=== PATIENT | male | born 1950 | race African-American/Black ===

== ENCOUNTER 2016-10-22 10:21 | Emergency (ER) | payer OTHER ==
[2016-10-22 10:32] VITALS: BMI 26.3
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
[2016-10-22] MEDS ORDERED: KETOROLAC TROMETHAMINE 60 MG/2 ML VIAL IM ONE (13:13)
[2016-10-22] MEDS ORDERED: KETOROLAC TROMETHAMINE 60 MG/2 ML VIAL ONE (13:45)
[2016-10-22 14:46] VITALS: BP 144/90; PULSE 89; TEMP 98.1
== END 2016-10-22 14:46 | disposition home or self-care (01) ==
LOC: JER 10:21
PROC: 3E0233Z Introduction of Anti-inflammatory into Muscle, Percutaneous Approach (ICD-10-PCS; principal; 2016-10-22)
DX: S22.32XD Fracture of one rib, left side, subsequent encounter for fracture with routine healing (principal); V67 Occupant of heavy transport vehicle injured in collision with fixed or stationary object
CPT/HCPCS: 71020-TC; 71101-TC; 99284-25

== ENCOUNTER 2016-10-24 12:02 | Emergency (ER) | payer OTHER ==
[2016-10-24 12:08] VITALS: TEMP 98; BMI 25.7
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
[2016-10-24] MEDS ORDERED: ONDANSETRON *ODT* 4 MG TABLET SL ONE (12:50)
[2016-10-24] MEDS ORDERED: HYDROmorphone HCL CARPU-JECT 1 MG/1 ML DISP.SYRIN IM ONE (12:50)
[2016-10-24] MEDS ORDERED: HYDROmorphone HCL CARPU-JECT 2 MG/1 ML DISP.SYRIN ONE (12:58)
[2016-10-24] MEDS ORDERED: ONDANSETRON *ODT* 4 MG TABLET ONE (12:59)
[2016-10-24 16:53] VITALS: BP 139/68; PULSE 65
== END 2016-10-24 16:53 | disposition home or self-care (01) ==
LOC: JER 12:02
DX: S22.42XD Multiple fractures of ribs, left side, subsequent encounter for fracture with routine healing (principal); V67 Occupant of heavy transport vehicle injured in collision with fixed or stationary object
CPT/HCPCS: 71250-TC; 74176-TC; 99285-25

== ENCOUNTER 2018-06-20 16:58 | Emergency (ER) | payer OTHER ==
--- NOTE | 2018-06-20 17:28 | PDOC ---
Rapid Medical Evaluation Time Seen by Provider: 06/20/18 17:24 Medical Evaluation: Allergies Allergy/AdvReac Type Severity Reaction Status Date / Time No Known Allergies Allergy Verified 10/24/16 12:08 06/20/18 17:25 I have performed a brief in-person evaluation of this patient. The patient presents with a chief complaint of: sent in by Dr George for HR of 112 on routine visit today. Pt states he feels well w/ no palpitations, CP or SOB. No RF for DVT/PE. H/o HTN, HLD, DM Pertinent physical exam findings:Well stefan w/ HR of 109 I have ordered the following:ekg/labs The patient will proceed to the ED for further evaluation. Discharge Disposition - Diagnosis Tachycardia - Referrals Referrals: Avis Gray MD [Primary Care Provider] - - Patient Instructions - Post Discharge Activity
[2018-06-20 17:29] VITALS: BMI 26.3
[2018-06-20 18:00] LABS: BASO % 1.1 % (0-2.0); EOS % 2.4 % (0-4.5); HEMATOCRIT 43.7 % (35.4-49); HEMOGLOBIN 15.4 GM/dL (11.7-16.9); LYMPH % 28.4 % (8-40); MCH 33.3 pg (25.7-33.7); MCHC 35.2 g/dl (32.0-35.9); MEAN CELL VOLUME 94.7 fl (80-96); MEAN PLT VOLUME 8.8 fl (7.5-11.1); MONO % 7.2 % (3.8-10.2); NEUT % 60.9 % (42.8-82.8); PLATELET COUNT 210 K/MM3 (134-434); RBC 4.62 M/mm3 (4.00-5.60); RDW 12.8 % (11.9-15.9)
[2018-06-20 19:00] LABS: URINE APPEARANCE CLEAR; URINE BILIRUBIN NEGATIVE (<2.0 mg/dL); URINE COLOR DKYELLOW; URINE GLUCOSE (UA) 2+ (NEGATIVE); URINE KETONE NEGATIVE (NEGATIVE); URINE LEUK ESTERASE NEGATIVE (NEGATIVE); URINE NITRITE NEGATIVE (NEGATIVE); URINE PROTEIN NEGATIVE (NEGATIVE)
[2018-06-20 19:02] LABS: ALK PHOS 108 U/L (45-117); ANION GAP 7 MMOL/L (8-16); BILIRUBIN,TOTAL 0.5 mg/dL (0.2-1); BLOOD UREA NITROGEN 9 mg/dL (7-18); CALCIUM 9.3 mg/dL (8.5-10.1); CHLORIDE 103 mmol/L (98-107); CO2 30 mmol/L (21-32); CREATININE 0.9 mg/dL (0.55-1.3); GLUCOSE,RANDOM 228 mg/dL (74-106); POTASSIUM 4.4 mmol/L (3.5-5.1); SGOT/AST 16 U/L (15-37); SGPT/ALT 19 U/L (13-61); SODIUM 140 mmol/L (136-145); TOT PROT 7.2 g/dl (6.4-8.2)
--- NOTE | 2018-06-20 19:03 | PDOC ---
History of Present Illness - General Chief Complaint: Irregular Heart Beat Stated Complaint: PCP SENT Time Seen by Provider: 06/20/18 17:24 History Source: Patient Exam Limitations: No Limitations - History of Present Illness Initial Comments: 68 yo M w a pmh of NIDDM, HTN and HLD presents to the ER sent from his PCP - Dr. John George because he was tachycardic to 112. The patient denies any symptoms. He denies having chest pain, SOB, difficulty breathing, palpitations, lightheadedness, nausea, vomiting, recent fevers, chills, infections, headaches , blurry vision, tinnitus, vertigo, neck pain, back pain, ankle/leg swelling, diarrhea, constipation, recent travel, history of blood clots or family hx of VTE. Allergies: NKA, NKDA Past surgical history: None reported Social history: He reports cigarette use (20 daily). No alcohol or drug use reported PCP - Dr. John George Past History - Past Medical History Allergies/Adverse Reactions: Allergies Allergy/AdvReac Type Severity Reaction Status Date / Time No Known Allergies Allergy Verified 06/20/18 17:28 Home Medications: Ambulatory Orders Amlodipine Besylate 10 mg PO DAILY 11/24/15 Aspirin [Ecotrin] 81 mg PO DAILY 11/24/15 Gabapentin [Neurontin -] 300 mg PO DAILY 11/24/15 Lisinopril [Prinivil] 20 mg PO DAILY 11/24/15 Simvastatin [Zocor -] 20 mg PO DAILY 11/24/15 Sitagliptin Phos/Metformin HCl [Janumet 50-500 mg Tablet] 500 mg PO BIDAC Insulin Detemir [Levemir Flextouch] 0 unit SQ ASDIR 06/20/18 COPD: No Diabetes: Yes HTN: Yes Hypercholesterolemia: Yes - Immunization History Immunization Up to Date: Yes - Suicide/Smoking/Psychosocial Hx Smoking History: Never smoked Have you smoked in the past 12 months: No Number of Cigarettes Smoked Daily: 15 Information on smoking cessation initiated: No Hx Alcohol Use: No Drug/Substance Use Hx: No Substance Use Type: None Review of Systems - Review of Systems Able to Perform ROS?: Yes Comments:: CONSTITUTIONAL: Absent: fever, no chills, no fatigue EYES: Absent: visual changes ENT: Absent: ear pain, no sore throat CARDIOVASCULAR: Absent: chest pain, no palpitations RESPIRATORY: Absent: cough, no SOB GI: Absent: abdominal pain, no nausea, no vomiting, no constipation, no diarrhea GENITOURINARY: Absent: dysuria, no frequency, no hematuria MUSKULOSKELETAL: Absent: back pain, no arthralgia, no myalgia SKIN: Absent: rash NEURO: Absent: headache *Physical Exam - Vital Signs Last Vital Signs Temp Pulse Resp BP Pulse Ox 98.9 F 109 H 16 150/81 100 06/20/18 17:26 06/20/18 17:26 06/20/18 17:26 06/20/18 17:26 06/20/18 17:26 - Physical Exam Comments: GENERAL: Well-appearing, well-nourished. No apparent distress. HEENT: Normocephalic, atraumatic. PERRL, EOM intact. CARDIOVASCULAR: Normal S1, S2. Regular rate and rhythm. PULMONARY: No evidence of respiratory distress. Lungs clear to auscultation bilaterally. No wheezing, rales or rhonchi. ABDOMEN: Soft, non-distended, non-tender. EXTREMITIES: Normal ROM in all four extremities. No gross deformities. SKIN: Warm, dry. No rash NEUROLOGICAL: No focal neurological deficits. Moderate Sedation - Procedure Monitoring Vital Signs: Procedure Monitoring Vital Signs Temperature 98.9 F 06/20/18 17:26 Pulse Rate 109 H 06/20/18 17:26 Respiratory Rate 16 06/20/18 17:26 Blood Pressure 150/81 06/20/18 17:26 O2 Sat by Pulse Oximetry (%) 100 06/20/18 17:26 ED Treatment Course - LABORATORY CBC & Chemistry Diagram: 06/20/18 17:45 06/20/18 17:40 - ADDITIONAL ORDERS Additional order review: Laboratory Results 06/20/18 17:40 Sodium 140 Potassium 4.4 Chloride 103 Carbon Dioxide 30 Anion Gap 7 L BUN 9 Creatinine 0.9 Creat Clearance w eGFR > 60 Random Glucose 228 H Calcium 9.3 Total Bilirubin 0.5 AST 16 ALT 19 Alkaline Phosphatase 108 Creatine Kinase 91 Troponin I < 0.02 Total Protein 7.2 Albumin 4.0 06/20/18 17:45 RBC 4.62 MCV 94.7 MCHC 35.2 RDW 12.8 MPV 8.8 D Neutrophils % 60.9 Lymphocytes % 28.4 Monocytes % 7.2 Eosinophils % 2.4 Basophils % 1.1 Medical Decision Making - Medical Decision Making 68 yo M w a pmh of NIDDM, HTN and HLD presents to the ER sent from his PCP - Dr. John George because he was tachycardic to 112. The patient denies any symptoms. He denies having chest pain, SOB, difficulty breathing, palpitations, lightheadedness, nausea, vomiting, recent fevers, chills, infections, headaches , blurry vision, tinnitus, vertigo, neck pain, back pain, ankle/leg swelling, diarrhea, constipation, recent travel, history of blood clots or family hx of VTE. VS: 109 at presentation. Now at bedside patient's HR is 89. Otherwise WNL. DDx IBNLT: ACS/NE, arrhythmia, electrolyte disturbance, infection, dehydration, medication side effect. Plan: Labs, Urine, EKG, Flu, CXR, hydration, re-assess. - CXR shows no acute pathology. - CBC shows mild WBC of 12, CMP shows glucose 228. - Trop 1 negative. - UA shows no signs of infection. - Flu swab negative Patient is well appearing, has no complaints and requests discharge. *DC/Admit/Observation/Transfer Diagnosis at time of Disposition: Tachycardia, URI (upper respiratory infection) - Discharge Dispostion Disposition: HOME Condition at time of disposition: Improved Decision to Admit order: No - Referrals Referrals: Avis Gray MD [Primary Care Provider] - Stef Mccauley MD [Staff Physician] - - Patient Instructions Printed Discharge Instructions: Tachycardia, DI for Arrhythmias, Common Cold, DI for Viral Upper Respiratory Infection -- Adult Additional Instructions: You came into the ER with an elevated heart rate. We looked at your blood and urine and found no glaring abnormalities. Your heart rate went down to 89 after observation and hydration in the ED. We are giving you the number of a fuel house attendant to call and schedule an appointment with. Please make sure to call up Dr. Mccauley and schedule an appointment. Come back to the ER if you experience any chest pain, shortness of breath, lightheadedness, or any other new or worsening concerns. Thank you for coming to the [facility] ER. We hope you feel better soon! Print Language: PERUVIAN - Post Discharge Activity
--- NOTE | 2018-06-20 20:12 | PDOC ---
Attending Attestation - Physicial Exam PE: 06/20/18 20:20 GENERAL: Awake, alert, and fully oriented, in no acute distress HEAD: No signs of trauma EYES: PERRLA, EOMI, sclera anicteric, conjunctiva clear ENT: Auricles normal inspection, hearing grossly normal, nares patent, oropharynx clear without exudates. Moist mucosa NECK: Normal ROM, supple, no lymphadenopathy, JVD, or masses LUNGS: (+)Coarse breath sounds at right base. Breath sounds equal, clear to auscultation bilaterally. No wheezes, and no crackles HEART: Regular rate and rhythm, normal S1 and S2, no murmurs, rubs or gallops ABDOMEN: Soft, nontender, normoactive bowel sounds. No guarding, no rebound. No masses EXTREMITIES: Normal range of motion, no edema. No clubbing or cyanosis. No cords, erythema, or tenderness NEUROLOGICAL: Cranial nerves II through XII grossly intact. Normal speech, normal gait SKIN: Warm, Dry, normal turgor, no rashes or lesions noted. <Faith Rodriguez - Last Filed: 06/20/18 20:20> - Resident Resident Name: Baldev Goncalves - ED Attending Attestation I have performed the following: I have examined & evaluated the patient, The case was reviewed & discussed with the resident, I agree w/resident's findings & plan - HPI HPI: 06/20/18 20:09 Pt comes with tachycardia that was incidentally noted at hos doc office. Pt had no complaints. No CP and no SOB. He has HTN and DM and both are well controlled. He has had a cold x 2 days. Pt tells us that he refused the flu shot this year. He has a non-productive cough, no fever and no SOB; he has no recent travel. 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 Pt is a smoker. No drugs and no alcohol. Pt drank a pitcher of water in the ER and hydrated self. HR went from 105bpm to 88 bpm. He feels well. Pt will get a flu test. If normal, he will be discharged home. - Medical Decision Making 06/20/18 21:08 Pt has a viral URI and an episode of tachycardia that is now resolved. He is stable for discharge. 06/20/18 21:14 Flu negative; CXR normal; EKGtachycardia to 105, on arrival @17:33; pt's HR is now 88bpm. <Sruthi Merritt - Last Filed: 06/20/18 21:16> Heart Score/ECG Review - ECG Intrepretation Rhythm: Regular Rhythm - [place]: Normal - P and AR Delta Wave(s) Present: No WPW: No - QRS Poor R Wave Progression: No Q Wave Present: No - ST and T Early Repolarization: No Non Specific ST-T Wave changes: No Flattened T Waves: No Prolonged Q-T Interval: No - ECG Impressions Normal ECG: Yes Non-specific ST Elevation: No Ischemic Changes: No Bradycardia: No Tachycardia: Sinus Torsades oliver Pointes: No <Sruthi Merritt - Last Filed: 06/20/18 21:16> Attestations - Attestations 06/20/18 20:20 Documentation prepared by Faith Rodriguez, acting as medical research associate for Sruthi Merritt MD. <Faith Rodriguez - Last Filed: 06/20/18 20:20>
[2018-06-20 21:23] VITALS: BP 146/78; PULSE 86; TEMP 98.5
--- NOTE | 2018-06-21 22:04 | EKG ---
Test Reason : Blood Pressure : / mmHG Vent. Rate : 105 BPM Atrial Rate : 105 BPM P-R Int : 138 ms QRS Dur : 090 ms QT Int : 318 ms P-R-T Axes : 063 055 043 degrees QTc Int : 420 ms SINUS TACHYCARDIA POSSIBLE LEFT ATRIAL ENLARGEMENT BORDERLINE ECG WHEN COMPARED WITH ECG OF 23-NOV-2015 19:55, NO SIGNIFICANT CHANGE WAS FOUND Confirmed by BARBARA ABARCA MD ([id number]) on 06/21/2018 10:04:21 PM Referred By: Confirmed By:BARBARA ABARCA MD
== END 2018-06-20 21:22 | disposition home or self-care (01) ==
LOC: JER 16:58
DX: J06.9 Acute upper respiratory infection, unspecified (principal); R00.0 Tachycardia, unspecified; B97.89 Other viral agents as the cause of diseases classified elsewhere; I10 Essential (primary) hypertension; E78.00 Pure hypercholesterolemia, unspecified; E11.9 Type 2 diabetes mellitus without complications; Z79.4 Long term (current) use of insulin; Z79.84 Long term (current) use of oral hypoglycemic drugs; F17.210 Nicotine dependence, cigarettes, uncomplicated
CPT/HCPCS: 36415; 71046-TC-FY; 80053; 81003; 82550; 84484; 85025; 87804; 93005; 93010; 99283-25

== ENCOUNTER 2019-01-11 10:43 | Inpatient (IN) | payer OTHER ==
[2019-01-11 10:51] VITALS: BMI 25.7
--- NOTE | 2019-01-11 11:54 | PDOC ---
Attending Attestation - Resident Resident Name: JbRakeshKyle - ED Attending Attestation I have performed the following: I have examined & evaluated the patient, The case was reviewed & discussed with the resident, I agree w/resident's findings & plan, Exceptions are as noted - HPI HPI: 01/11/19 11:54 68y M hx of NIDDM, htn, hl presents with complain of pain/bump to his buttock for th past 2-3 days - the swelling has goten worse and it is now difficul to sit due to hte paint. Pt endorses subjective fever/chills and nausea. No prior history of simila syptoms in the past. pts bgm is well controlled exam: no acute distres card: rrr, no mrg pulm: cta b/l abd: soft nontneder skin: +fullness/eryhema/inuration on the R gluteal fold, does not seem to involve the anal verg concern fo celluitis vs abscess will obtin blood work will reasess, consider CT to further evlauate fo possible perirectal abscess 01/11/19 12:34 - Physicial Exam PE: 01/13/19 07:34 see above - Medical Decision Making 01/11/19 12:52 pt notd febrile sepsis ordeset obtained awaiting CT and lab results anticipate abx, admission Heart Score/ECG Review - ECG Impressions Comment:: 01/11/19 12:51 Twelve-lead EKG was performed and reviewed by me. There is normal sinus rhythm with a rate of 111 sinus tachycardia
[2019-01-11] MEDS ORDERED: SODIUM CHLORIDE 0.9% 1000 ML INFUS.BAG IV ONE (12:41)
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
[2019-01-11] MEDS ORDERED: ACETAMINOPHEN 1000 MG/100 ML VIAL (NON FORMULARY) IVPB ONE (12:57)
[2019-01-11] MEDS ORDERED: ACETAMINOPHEN INJECTION 100 ML IVPB ONE (13:01)
[2019-01-11 13:28] LABS: BASO % 0.4 % (0-2.0); EOS % 0.1 % (0-4.5); HEMATOCRIT 43.5 % (35.4-49); HEMOGLOBIN 14.6 GM/dL (11.7-16.9); MCH 31.9 pg (25.7-33.7); MCHC 33.6 g/dl (32.0-35.9); MEAN CELL VOLUME 95.2 fl (80-96); MEAN PLT VOLUME 9.6 fl (7.5-11.1); MONO % 7.8 % (3.8-10.2); NEUT % 84.7 % (42.8-82.8); PLATELET COUNT 184 K/MM3 (134-434); RBC 4.58 M/mm3 (4.00-5.60); RDW 12.7 % (11.9-15.9); WHITE BLOOD COUNT 21.4 K/mm3 (4.0-10.0)
[2019-01-11 13:43] LABS: INR 1.46 (0.83-1.09); PROTHROMBIN TIME (PATIENT) 17.3 SEC (9.7-13.0)
[2019-01-11 13:43] LABS: ALBUMIN 3.4 g/dl (3.4-5.0); ALK PHOS 124 U/L (45-117); ANION GAP 9 MMOL/L (8-16); BILIRUBIN,TOTAL 1.8 mg/dL (0.2-1); BLOOD UREA NITROGEN 11.2 mg/dL (7-18); CHLORIDE 102 mmol/L (98-107); CO2 29 mmol/L (21-32); CREATININE 0.9 mg/dL (0.55-1.3); GLUCOSE,RANDOM 210 mg/dL (74-106); POTASSIUM 3.7 mmol/L (3.5-5.1); SGOT/AST 17 U/L (15-37); SGPT/ALT 23 U/L (13-61); SODIUM 139 mmol/L (136-145); TOT PROT 7.1 g/dl (6.4-8.2)
[2019-01-11] MEDS ORDERED: VANCOMYCIN 1 GM in D5W (PRE-DOCKED) 1,000 MG/250 ML IVPB ONE (14:38)
[2019-01-11] MEDS ORDERED: PIPERACILLIN/TAZOB 4.5 GM 4.5 GM in DEXTROSE 5%-WATER 100 ML IVPB ONE (14:38)
[2019-01-11] MEDS ORDERED: PIPERACILLIN/TAZOB 4.5 GM 4.5 GM/100 ML BAG IVPB ONE (14:45)
[2019-01-11] MEDS ORDERED: VANCOMYCIN 1 GRAM (PRE-DOCKED) 1,000 MG/250 ML BAG IVPB ONE (14:45)
[2019-01-11 15:17] LABS: ANISOCYTOSIS 1+; MACROCYTOSIS 0; OVALOCYTE 1+; PLATELET ESTIMATE NORMAL; TEAR DROP CELLS 1+
[2019-01-11 16:06] LABS: HYALINE CASTS 9 /lpf (0-8); PH,URINE 5.5 (5.0-8.0); URINE APPEARANCE CLEAR; URINE BACTERIA 3.7 /hpf (NEGATIVE); URINE BILIRUBIN 1+ (NEGATIVE); URINE COLOR DK YELLOW; URINE GLUCOSE (UA) 3+ (NEGATIVE); URINE KETONE NEGATIVE (NEGATIVE); URINE LEUK ESTERASE NEGATIVE (NEGATIVE); URINE NITRITE NEGATIVE (NEGATIVE); URINE PROTEIN 1+ (NEGATIVE); URINE RBC 4 /hpf (0-4); URINE WBC 2 /hpf (0-5)
--- NOTE | 2019-01-11 16:29 | EKG ---
Test Reason : Blood Pressure : / mmHG Vent. Rate : 111 BPM Atrial Rate : 111 BPM P-R Int : 132 ms QRS Dur : 090 ms QT Int : 306 ms P-R-T Axes : 074 038 017 degrees QTc Int : 416 ms SINUS TACHYCARDIA WITH PREMATURE ATRIAL COMPLEXES LEFT ATRIAL ENLARGEMENT NONSPECIFIC T WAVE ABNORMALITY ABNORMAL ECG Confirmed by MD JOSÉ MIGUEL, CHUCHO ([id number]) on 01/11/2019 4:29:42 PM Referred By: Confirmed By:CHUCHO VALDEZ MD
--- NOTE | 2019-01-11 18:16 | CON.ID ---
Consult - History of Present Illness History of Present Illness: 68 y.o. male with PMH of DM (controlled as per pt), HTN, and HLD presents with c /o Rt buttock pain that developed 2 days ago. Pt states that the pain became severe and was unable to ambulate and reports recent fever/chills with nausea. In ER he was noted to have erythema/induration/severe tenderness in Rt medial buttock next to the anal region. Patient had a Temp of 101.8 with leukocytosis ( wbc 21.4K) and tachycardia. CTAP result is currently pending. He is in pain but fully alert, without acute distress. - History Source History Provided By: Patient Limitations to Obtaining History: No Limitations - Past Medical History Cardio/Vascular: Yes: HTN, Hyperlipdemia Endocrine: Yes: Diabetes Mellitus - Alcohol/Substance Use Hx Alcohol Use: No - Smoking History Smoking history: Current every day smoker Have you smoked in the past 12 months: No Aproximately how many cigarettes per day: 2 - Social History History of Recent Travel: No Home Medications - Allergies Allergies/Adverse Reactions: Allergies Allergy/AdvReac Type Severity Reaction Status Date / Time No Known Allergies Allergy Verified 01/11/19 10:51 - Home Medications Home Medications: Ambulatory Orders Amlodipine Besylate 10 mg PO DAILY 11/24/15 Aspirin [Ecotrin] 81 mg PO DAILY 11/24/15 Gabapentin [Neurontin -] 300 mg PO DAILY 11/24/15 Lisinopril [Prinivil] 20 mg PO DAILY 11/24/15 Simvastatin [Zocor -] 20 mg PO DAILY 11/24/15 Sitagliptin Phos/Metformin HCl [Janumet 50-500 mg Tablet] 500 mg PO BIDAC Review of Systems - Review of Systems Constitutional: reports: Chills, Fever Eyes: reports: No Symptoms. denies: Blind Spots, Blurred Vision, Double Vision , Eye Pain, Floaters, Photophobia, Recent Change in Vision, Other HENT: reports: No Symptoms. denies: Difficult Swallowing, Ear Discharge, Ear Pain, Epistaxis, Gingival Bleeding, Hearing Loss, Mouth Swelling, Nasal Congestion, Ocular Prosthesis, Throat Pain, Toothache, Ringing in Ears, Other Neck: reports: No Symptoms. denies: Decreased ROM, Lumps, Pain on Movement, Stiffness, Swollen Glands, Tenderness, Other Cardiovascular: reports: No Symptoms. denies: Chest Pain, Edema, Palpitations, Shortness of Breath, Other Respiratory: reports: No Symptoms Gastrointestinal: reports: Nausea Genitourinary: reports: No Symptoms. denies: Burning, Discharge, Dysuria, Flank Pain, Frequency, Hematuria, Incontinence, Lesions, Menses, Pain, Testicular Mass, Testicular Pain, Testicular Swelling, Urgency, Vaginal Bleeding , Other Musculoskeletal: reports: No Symptoms. denies: Back Pain, Crepitus, Decreased ROM, Extremity Pain, Joint Pain, Joint Swelling, Muscle Pain, Muscle Cramps, Muscle Weakness, Other Integumentary: reports: Erythema, Lump (Rt medial buttock) Neurological: reports: No Symptoms. denies: Change in LOC, Change in Speech, Confusion, Dizziness, Headache, Incoordination, Numbness, Parasthesia, Pre- Existing Deficit, Seizure, Syncope, Tremors, Unsteady Gait, Weakness, Other Endocrine: reports: No Symptoms. denies: Excessive Sweating, Flushing, Increased Hunger, Increased Thirst, Intolerance to Cold, Intolerance to Heat, Unexplained Weight Gain, Unexplained Weight Loss, Other Hematology/Lymphatic: reports: No Symptoms. denies: Easily Bruised, Excessive Bleeding, Swollen Glands, Other Psychiatric: reports: No Symptoms. denies: Altered Sleep Pattern, Anxiety, Depression, Hallucinations, Panic, Paranoia, Suicidal, Other Pain Intensity: 9 Physical Exam Vital Signs: Vital Signs Temperature 99.9 F H 01/11/19 15:44 Pulse Rate 92 H 01/11/19 15:44 Respiratory Rate 18 01/11/19 15:44 Blood Pressure 118/60 01/11/19 15:44 O2 Sat by Pulse Oximetry (%) 97 01/11/19 15:44 Constitutional: Yes: Calm Eyes: Yes: Conjunctiva Clear HENT: Yes: Atraumatic Neck: Yes: Supple Cardiovascular: Yes: Tachycardia Respiratory: Yes: CTA Bilaterally Gastrointestinal: Yes: Normal Bowel Sounds, Soft Renal/: Yes: WNL Musculoskeletal: Yes: WNL Extremities: Yes: WNL Edema: No Integumentary: Yes: Other (Rt medial buttock 15x8 cm induration/erythema/ tenderness, adjacent to anus) Neurological: Yes: Alert, Oriented Psychiatric: Yes: Alert, Oriented Labs: CBC, BMP 01/11/19 12:45 01/11/19 12:28 Laboratory Tests 01/11/19 01/11/19 01/11/19 12:28 12:45 12:45 WBC 21.4 H RBC 4.58 Hgb 14.6 Hct 43.5 MCV 95.2 MCH 31.9 MCHC 33.6 RDW 12.7 Plt Count 184 MPV 9.6 Absolute Neuts (auto) 18.1 H Neutrophils % 84.7 H D Neutrophils % (Manual) 67.0 Band Neutrophils % 15.5 Lymphocytes % 7.0 L D Lymphocytes % (Manual) 7.2 L Monocytes % 7.8 Monocytes % (Manual) 7 Eosinophils % 0.1 D Eosinophils % (Manual) 0.0 Basophils % 0.4 Basophils % (Manual) 0.0 Myelocytes % (Man) 0 Promyelocytes % (Man) 0 Blast Cells % (Manual) 0 Nucleated RBC % 0 Metamyelocytes 0 Hypochromia 0 Platelet Estimate Normal Platelet Comment Present Polychromasia 1+ Poikilocytosis 1+ Anisocytosis 1+ Microcytosis 1+ Macrocytosis 0 Tear Drop Cells 1+ Ovalocytes 1+ [place] Cells 1+ PT with INR INR PTT (Actin FS) Sodium 139 Potassium 3.7 Chloride 102 Carbon Dioxide 29 Anion Gap 9 BUN 11.2 Creatinine 0.9 Est GFR (CKD-EPI)AfAm 102.79 Est GFR (CKD-EPI)NonAf 88.69 Random Glucose 210 H Lactic Acid Calcium 9.0 Total Bilirubin 1.8 H AST 17 ALT 23 Alkaline Phosphatase 124 H Troponin I < 0.02 Total Protein 7.1 Albumin 3.4 Urine Color Urine Appearance Urine pH Ur Specific [place] Urine Protein Urine Glucose (UA) Urine Ketones Urine Blood Urine Nitrite Urine Bilirubin Urine Urobilinogen Ur Leukocyte Esterase Urine WBC (Auto) Urine RBC (Auto) Urine Casts (Auto) U Epithel Cells (Auto) Urine Bacteria (Auto) Blood Type O POSITIVE Antibody Screen Negative 01/11/19 01/11/19 01/11/19 12:45 12:45 15:00 WBC RBC Hgb Hct MCV MCH MCHC RDW Plt Count MPV Absolute Neuts (auto) Neutrophils % Neutrophils % (Manual) Band Neutrophils % Lymphocytes % Lymphocytes % (Manual) Monocytes % Monocytes % (Manual) Eosinophils % Eosinophils % (Manual) Basophils % Basophils % (Manual) Myelocytes % (Man) Promyelocytes % (Man) Blast Cells % (Manual) Nucleated RBC % Metamyelocytes Hypochromia Platelet Estimate Platelet Comment Polychromasia Poikilocytosis Anisocytosis Microcytosis Macrocytosis Tear Drop Cells Ovalocytes [place] Cells PT with INR 17.30 H INR 1.46 H PTT (Actin FS) 30.0 Sodium Potassium Chloride Carbon Dioxide Anion Gap BUN Creatinine Est GFR (CKD-EPI)AfAm Est GFR (CKD-EPI)NonAf Random Glucose Lactic Acid 1.8 Calcium Total Bilirubin AST ALT Alkaline Phosphatase Troponin I Total Protein Albumin Urine Color Dk yellow Urine Appearance Clear Urine pH 5.5 Ur Specific [place] 1.031 Urine Protein 1+ H Urine Glucose (UA) 3+ H Urine Ketones Negative Urine Blood Negative Urine Nitrite Negative Urine Bilirubin 1+ H Urine Urobilinogen 1.0 Ur Leukocyte Esterase Negative Urine WBC (Auto) 2 Urine RBC (Auto) 4 Urine Casts (Auto) 9 U Epithel Cells (Auto) 2.0 Urine Bacteria (Auto) 3.7 Blood Type Antibody Screen Blood cultures - pending Imaging - Results Chest X-ray: Report Reviewed Cat Scan: Pending Problem List - Problems (1) Diabetes Code(s): E11.9 - TYPE 2 DIABETES MELLITUS WITHOUT COMPLICATIONS (2) Hyperlipemia Code(s): E78.5 - HYPERLIPIDEMIA, UNSPECIFIED (3) Hypertension Code(s): I10 - ESSENTIAL (PRIMARY) HYPERTENSION Assessment/Plan Rt buttock abscess r/o perirectal/perianal abscess Sepsis Fever Leukoyctosis DM HTN HLD --will start Zosyn/Vancomycin empirically -- Vancomycin trough prior to 4th dose, monitor renal function closely -- follow up CTAP results -- Surgical evaluation if abscess noted -- needs pain control -- tight glycemic control -- monitor temp/wbc trend Will f/u Thank you
[2019-01-11] MEDS ORDERED: PIPERACILLIN/TAZOBACTAM 4.5 GM VIAL IVPB ONE (20:39)
[2019-01-11] MEDS ORDERED: DEXTROSE 5%-WATER 100 ML IVPB ONE (20:39)
[2019-01-11] MEDS ORDERED: PNEUMOC 13-VAL CONJ-DIP CRM/PF 0.5 ML DISP.SYRIN IM ONE (20:42)
[2019-01-11] MEDS: PIPERACILLIN/TAZOB 4.5 GM 4.5 GM in DEXTROSE 5%-WATER 100 ML IVPB SCH (21:50)
[2019-01-11] MEDS ORDERED: ACETAMINOPHEN 325 MG TABLET (FP) PO PRN (22:55)
[2019-01-11] MEDS ORDERED: amLODIPine BESYLATE 5 MG TABLET (FP) PO STA (22:55)
[2019-01-11] MEDS ORDERED: INSULIN (NOVOLOG) ASPART 100 UNITS/ML 10ML VIAL SQ ONE (23:00)
[2019-01-12] MEDS ORDERED: VANCOMYCIN 1,000 MG in DEXTROSE 5%-WATER - 250 ML IVPB SCH (03:00)
[2019-01-12] MEDS ORDERED: PIPERACILLIN/TAZOBACTAM 4.5 GM VIAL IVPB ONE ×3 (05:00→21:22)
[2019-01-12] MEDS ORDERED: DEXTROSE 5%-WATER 100 ML IVPB ONE ×3 (05:00→21:22)
[2019-01-12] MEDS: PIPERACILLIN/TAZOB 4.5 GM 4.5 GM in DEXTROSE 5%-WATER 100 ML IVPB SCH ×3 (05:22→21:29)
[2019-01-12] MEDS ORDERED: MEPERIDINE HCL 50 MG/ML VIAL IM PRN ×2 (09:40→20:32)
[2019-01-12] MEDS ORDERED: ACETAMINOPHEN 325 MG TABLET (FP) PO PRN (09:58)
[2019-01-12] MEDS ORDERED: amLODIPine BESYLATE 5 MG TABLET (FP) PO SCH (10:00)
[2019-01-12] MEDS ORDERED: RAMIPRIL 5 MG CAPSULE (FP) PO SCH (10:00)
--- NOTE | 2019-01-12 11:28 | HP ---
DATE OF ADMISSION: 01/11/2019 DATE OF DICTATION: 01/12/2019 HISTORY: This is a 68-year-old male known to me for many years diagnosed to have hypertension, diabetes. Came to the emergency room yesterday with complaints of right buttock pain, fever for 2-3 days. In the ER, it was diagnosed that the patient has a perianal abscess and got admitted. Evaluated by ID. He is already started on Zosyn. This morning, he still has severe pain. No other complaints. PHYSICAL EXAMINATION: Vital Signs: On examination, BP 140/80, pulse 104, respirations 20, temperature 99.9, maximum temperature 103. HEENT: Unremarkable. Neck: Supple. No JVD. Lungs: Clear. Heart: S1, S2 normal. No S3, S4. Abdomen: Soft. Skin: Perianal area there is abscess on the right buttock side. Neurologic: Grossly normal. LABORATORY REPORTS: WBC 21, hemoglobin 14.6, hematocrit 43. Chemistry: Sodium 139, potassium 3.7, chloride 102, BUN 11, creatinine 0.9. Blood sugar 210, lactic acid 1.8. Chest x-ray is negative. CT abdomen and pelvis showed air/fluid collection within the medial right buttock consistent with a developing abscess. EKG: Normal sinus rhythm. FINAL DIAGNOSES: 1. Perirectal abscess. 2. Diabetes. 3. Hypertension. PLAN: IV antibiotics as per ID. Surgical consult, Dr. Zelaya. Demetria [id number]
[2019-01-12] MEDS: VANCOMYCIN 1 GRAM (PRE-DOCKED) 1,000 MG/250 ML BAG IVPB SCH ×3 (12:00→23:54)
[2019-01-12] MEDS: INSULIN SLIDING SCALE (NOVOLOG) 1 VIAL SQ SCH ×3 (12:27→21:37)
--- NOTE | 2019-01-12 12:42 | PN ---
Progress Note, Physician History of Present Illness: says he is feeling better pain better - Current Medication List Current Medications: Active Medications Acetaminophen (Tylenol -) 650 mg PO Q4H PRN PRN Reason: FEVER Amlodipine Besylate (Norvasc -) 5 mg PO DAILY [facility] Last Admin: 01/12/19 10:14 Dose: 5 mg Glipizide (Glucotrol -) 5 mg PO DAILY@0700 [facility] Piperacillin Sod/Tazobactam (Sod 4.5 gm/ Dextrose) 100 mls @ 200 mls/hr IVPB TID [facility]; Protocol Last Admin: 01/12/19 05:22 Dose: 200 mls/hr Vancomycin HCl (Vancomycin (Pre-Docked)) 1,000 mg in 250 mls @ 166.667 mls/hr IVPB Q12H [facility]; Protocol Last Admin: 01/12/19 09:31 Dose: 166.667 mls/hr Insulin Aspart (Novolog Vial Sliding Scale -) 1 vial SQ ACHS [facility]; Protocol Last Admin: 01/12/19 12:27 Dose: Not Given Meperidine HCl (Demerol Vial) 50 mg IM Q6H PRN PRN Reason: PAIN LEVEL 6-10 Last Admin: 01/12/19 10:15 Dose: 50 mg Ramipril (Altace -) 5 mg PO DAILY [facility] Last Admin: 01/12/19 10:14 Dose: Not Given Sitagliptin Phosphate (Januvia -) 100 mg PO DAILY@0700 [facility] - Objective Vital Signs: Vital Signs Temperature 99.9 F H 01/12/19 06:00 Pulse Rate 104 H 01/12/19 06:00 Respiratory Rate 20 01/12/19 06:00 Blood Pressure 133/70 01/12/19 06:00 O2 Sat by Pulse Oximetry (%) 97 01/11/19 20:43 Constitutional: Yes: No Distress, Calm Cardiovascular: Yes: S1, S2 Respiratory: Yes: Regular, CTA Bilaterally Gastrointestinal: Yes: Normal Bowel Sounds, Soft ...Rectal Exam: Yes: Other (swelling and tenderness of the rt buttocks) Musculoskeletal: Yes: WNL Extremities: Yes: WNL Neurological: Yes: Alert Psychiatric: Yes: Alert Labs: CBC, BMP 01/11/19 12:45 01/11/19 12:28 INR, PTT INR 1.46 (0.83-1.09) H 01/11/19 12:45 Assessment/Plan colemanm List - Problems (1) Diabetes Code(s): E11.9 - TYPE 2 DIABETES MELLITUS WITHOUT COMPLICATIONS (2) Hyperlipemia Code(s): E78.5 - HYPERLIPIDEMIA, UNSPECIFIED (3) Hypertension Code(s): I10 - ESSENTIAL (PRIMARY) HYPERTENSION Assessment/Plan Rt buttock abscess r/o perirectal/perianal abscess Sepsis Fever Leukoyctosis DM HTN HLD continue abx follow vanco trough rest continue current mgmt
[2019-01-12] MEDS ORDERED: ONDANSETRON 4 MG/2 ML VIAL IVPUSH PRN ×2 (18:03→20:32)
[2019-01-12] MEDS ORDERED: PROMETHAZINE HCL 25 MG/1 ML VIAL IVPUSH PRN ×2 (18:03→20:32)
[2019-01-12] MEDS ORDERED: oxyCODONE HCL 5 MG TABLET PO PRN (18:03)
[2019-01-12] MEDS ORDERED: LACTATED RINGERS SOLUTION 1,000 ML IV SCH (18:15)
[2019-01-12] MEDS ORDERED: LIDOCAINE HCL 1%, 10 MG/ML (20ML VIAL) ONE (18:17)
--- NOTE | 2019-01-12 18:35 | CONSULT ---
Consult Consult Specialty:: Surgery Referred by:: Ariel Lopez Reason for Consultation:: Abscess in buttock./ perinal - History of Present Illness Chief Complaint: Pain and swelling in right buttock and perineum for the last 4 days, with increasing intensity. - History Source History Provided By: Patient Limitations to Obtaining History: No Limitations - Past Medical History Cardio/Vascular: Yes: HTN, Hyperlipdemia Endocrine: Yes: Diabetes Mellitus - Alcohol/Substance Use Hx Alcohol Use: No - Smoking History Smoking history: Current every day smoker Have you smoked in the past 12 months: No Aproximately how many cigarettes per day: 2 - Social History History of Recent Travel: No Home Medications - Allergies Allergies/Adverse Reactions: Allergies Allergy/AdvReac Type Severity Reaction Status Date / Time No Known Allergies Allergy Verified 01/11/19 10:51 - Home Medications Home Medications: Ambulatory Orders Amlodipine Besylate 10 mg PO DAILY 11/24/15 Aspirin [Ecotrin] 81 mg PO DAILY 11/24/15 Gabapentin [Neurontin -] 300 mg PO DAILY 11/24/15 Lisinopril [Prinivil] 20 mg PO DAILY 11/24/15 Simvastatin [Zocor -] 20 mg PO DAILY 11/24/15 Sitagliptin Phos/Metformin HCl [Janumet 50-500 mg Tablet] 500 mg PO BIDAC Physical Exam Vital Signs: Vital Signs Temperature 102.1 F H 01/12/19 14:00 Pulse Rate 104 H 01/12/19 14:00 Respiratory Rate 20 01/12/19 14:00 Blood Pressure 140/73 01/12/19 14:00 O2 Sat by Pulse Oximetry (%) 97 01/11/19 20:43 ...Rectal Exam: Yes: Inflammation (Large right gluteal swelling , redness , induration extending into the perineum. ? Buttock abscess. ? perineal , perianal abscess.) Labs: CBC, BMP 01/11/19 12:45 01/11/19 12:28 Imaging - Results Cat Scan: Report Reviewed (Large fluid and air collection in right buttock about 7-8 cms) Problem List - Problems (1) Abscess of right buttock Code(s): L02.31 - CUTANEOUS ABSCESS OF BUTTOCK (2) Diabetes Code(s): E11.9 - TYPE 2 DIABETES MELLITUS WITHOUT COMPLICATIONS Qualifiers: Diabetes mellitus type: type 2 (3) Hypertension Code(s): I10 - ESSENTIAL (PRIMARY) HYPERTENSION Assessment/Plan Impression : Large right buttock abscess, ? r/o ischial / perianal abscess, in a diabetic. Plan: Examination under anesthesia, drainage of abscess, gluteal / perianal abscess. Patient has been explained of the large size of the abscess, and need for immediate drainage , of gluteal and / or perianal abscess. Complications has also been explained. To or. Antibiotics on board.
[2019-01-12] MEDS ORDERED: PROPOFOL 20 ML ONE (18:36)
[2019-01-12] MEDS ORDERED: MIDAZOLAM HCL 2 MG/2 ML SINGLE DOSE VIAL ONE (18:37)
[2019-01-12] MEDS ORDERED: SUCCINYLCHOLINE CHLORIDE 200 MG/10 ML SYRINGE ONE (18:37)
[2019-01-12] MEDS ORDERED: LIDOCAINE HCL/PF 2% SDV 5ML VIAL ONE (18:38)
[2019-01-12] MEDS ORDERED: DEXAMETHASONE SOD PHOSPHATE 4 MG/1 ML VIAL ONE (18:55)
[2019-01-12] MEDS ORDERED: KETOROLAC TROMETHAMINE 30 MG/1 ML VIAL ONE (18:59)
--- NOTE | 2019-01-12 20:14 | OP ---
Operative Note - Note: Operative Date: 01/12/19 Pre-Operative Diagnosis: Necrotising infection right buttock and right perianal area, Operation: Inciison and drainage of necrotising infection of right buttock,. Debridement of necrotic soft tissue with knife and scissors,. Power irrigation of infected cavity ,. Incision and drainage of perianal abscess. Packing of the wound with iodoform. Findings: Large necrotising infection of right buttock and right perianal area, with gas and necrotic soft tissue. Surgeon: Arnold Zelaya Anesthesiologist/[employer]: Shad Heredia Anesthesia: General Specimens Removed: Necrotic soft tissue from right buttock. Estimated Blood Loss (mls): 20 Instrument used (Debridements only): Knife and scissors Operative Report Dictated: Yes
--- NOTE | 2019-01-12 21:16 | OP ---
DATE OF OPERATION: 01/12/2019 SEX: Male. AGE: [age] years old. PREOPERATIVE DIAGNOSIS: Necrotizing infection of the right buttock and right perianal area with abscess of the right buttock and right perianal abscess. POSTOPERATIVE DIAGNOSIS: Large necrotizing infection of the soft tissue of the right buttock and right perianal area with gas and necrotic soft tissue. OPERATIVE PROCEDURE: Examination under anesthesia, incision and drainage of necrotizing infection of the right buttock, debridement of necrotic soft tissue infection with knife and scissors, power irrigation of the infected cavity, incision and drainage of perianal abscess, and packing of the wound with Iodoform. SURGEON: Luisa Zelaya MD ANESTHESIA: General. ANESTHESIOLOGIST: Shad Heredia MD OPERATIVE DESCRIPTION: This 68-year-old man was called in consultation with a large pain and swelling in the right buttock extending to the perineum and right perianal area. Patient is a diabetic with severe hypertension and hyperlipidemia. He had a CAT scan which suggested an abscess in the medial side of the right buttocks with poorly-defined air and fluid collection measuring 7.8 x 3.5 x 6.4 cm. With these findings suggestive of necrotizing infection in the right buttock, right perianal area, patient was taken to the operating room. He was given general anesthesia and placed in the left lateral position. The right buttock and right perianal area as well as left buttock were painted with Betadine and draped. On the posteromedial aspect of the right buttock, there was an area of necrosis of the skin as well as significant induration and fluctuance going all the way down to the right perianal area. A large, 5-cm crisscross incision was made in the right buttock with drainage of a lot of infected, foul-smelling pus and necrotic debris. This was extensively debrided with a sharp knife and scissors, and all necrotic tissue was sent for culture as well as for histology. Another incision was made in the right buttock in the right perianal area in a crisscross fashion, and these 2 cavities were connected. With the power airline reservation agent, about 3-4 L of power irrigation was done into this area. All pockets of infection and pus going medially were exposed and opened after debridement. After thorough irrigation and opening of all the spaces, the wound was packed with 1-inch Iodoform gauze, and brought out through the perianal skin. There was an estimated 50 mL of blood loss. The wound was thoroughly packed and dressed. The findings were large necrotizing infection of the right buttock and right perianal area with gross necrotic tissue. Patient was then transferred to the recovery room in satisfactory and stable condition. Demetria PERRY/[id number] cc: John George MD MTDD
[2019-01-12] MEDS: oxyCODONE HCL 5 MG TABLET PO PRN (21:24)
[2019-01-12] MEDS: SODIUM CHLORIDE 1,000 ML IV SCH (21:30)
[2019-01-12] MEDS: LACTATED RINGERS SOLUTION 1,000 ML IV SCH (21:38)
[2019-01-13] MEDS ORDERED: PIPERACILLIN/TAZOBACTAM 4.5 GM VIAL IVPB ONE ×3 (04:50→21:53)
[2019-01-13] MEDS ORDERED: DEXTROSE 5%-WATER 100 ML IVPB ONE ×3 (04:50→21:53)
[2019-01-13] MEDS: PIPERACILLIN/TAZOB 4.5 GM 4.5 GM in DEXTROSE 5%-WATER 100 ML IVPB SCH ×3 (05:29→22:04)
[2019-01-13] MEDS: INSULIN SLIDING SCALE (NOVOLOG) 1 VIAL SQ SCH ×4 (06:05→22:03)
[2019-01-13] MEDS: sitaGLIPtin PHOSPHATE 50 MG TABLET PO SCH (06:27)
[2019-01-13] MEDS: glipiZIDE 5 MG TABLET (FP) PO SCH (06:27)
[2019-01-13] MEDS ORDERED: sitaGLIPtin PHOSPHATE 50 MG TABLET PO SCH (07:00)
[2019-01-13] MEDS ORDERED: glipiZIDE 5 MG TABLET (FP) PO SCH (07:00)
--- NOTE | 2019-01-13 09:03 | PN ---
Progress Note, Physician Chief Complaint: S/P drainage of thee anal abscess,feels better - Current Medication List Current Medications: Active Medications Acetaminophen (Tylenol -) 650 mg PO Q4H PRN PRN Reason: FEVER Amlodipine Besylate (Norvasc -) 5 mg PO DAILY [facility] Glipizide (Glucotrol -) 5 mg PO DAILY@0700 [facility] Last Admin: 01/13/19 06:27 Dose: 5 mg Lactated Ringer's (Lactated Ringers Solution) 1,000 mls @ 125 mls/hr IV ASDIR [facility] Last Admin: 01/12/19 21:38 Dose: Not Given Vancomycin HCl (Vancomycin (Pre-Docked)) 1,000 mg in 250 mls @ 166.667 mls/hr IVPB BID@0000,1200 [facility]; Protocol Last Admin: 01/12/19 23:51 Dose: 166.667 mls/hr Piperacillin Sod/Tazobactam (Sod 4.5 gm/ Dextrose) 100 mls @ 200 mls/hr IVPB TID [facility]; Protocol Last Admin: 01/13/19 05:29 Dose: 200 mls/hr Sodium Chloride (Normal Saline -) 1,000 mls @ 100 mls/hr IV ASDIR [facility] Last Admin: 01/12/19 21:30 Dose: 100 mls/hr Insulin Aspart (Novolog Vial Sliding Scale -) 1 vial SQ ACHS [facility]; Protocol Last Admin: 01/13/19 06:05 Dose: 10 units Meperidine HCl (Demerol Vial) 50 mg IM Q6H PRN PRN Reason: PAIN LEVEL 6-10 Ondansetron HCl (Zofran Injection) 4 mg IVPUSH Q6H PRN PRN Reason: NAUSEA AND/OR VOMITING Oxycodone HCl (Roxicodone -) 5 mg PO Q4H PRN PRN Reason: PAIN LEVEL 1-5 Last Admin: 01/12/19 21:24 Dose: 5 mg Promethazine HCl (Phenergan Injection -) 12.5 mg IVPUSH Q6H PRN PRN Reason: NAUSEA-FOR RESCUE AFTER 15 MIN Ramipril (Altace -) 5 mg PO DAILY [facility] Sitagliptin Phosphate (Januvia -) 100 mg PO DAILY@0700 [facility] Last Admin: 01/13/19 06:27 Dose: 100 mg - Objective Vital Signs: Vital Signs Temperature 98.2 F 01/13/19 06:43 Pulse Rate 71 01/13/19 06:43 Respiratory Rate 20 01/13/19 06:43 Blood Pressure 121/71 01/13/19 06:43 O2 Sat by Pulse Oximetry (%) 96 01/12/19 20:35 Constitutional: Yes: Mild Distress Eyes: Yes: WNL HENT: Yes: WNL Neck: Yes: WNL Cardiovascular: Yes: WNL Respiratory: Yes: WNL Gastrointestinal: Yes: Normal Bowel Sounds ...Rectal Exam: Yes: Deferred Genitourinary: Yes: WNL Breast(s): Yes: WNL Wound/Incision: Yes: Dressing Removed Neurological: Yes: Alert Psychiatric: Yes: Alert Labs: CBC, BMP 01/11/19 12:45 01/11/19 12:28 INR, PTT INR 1.46 (0.83-1.09) H 01/11/19 12:45 Assessment/Plan Start lantus insulin
--- NOTE | 2019-01-13 09:33 | PN ---
Progress Note, Physician - Current Medication List Current Medications: Active Medications Acetaminophen (Tylenol -) 650 mg PO Q4H PRN PRN Reason: FEVER Amlodipine Besylate (Norvasc -) 5 mg PO DAILY [facility] Glipizide (Glucotrol -) 5 mg PO DAILY@0700 [facility] Last Admin: 01/13/19 06:27 Dose: 5 mg Lactated Ringer's (Lactated Ringers Solution) 1,000 mls @ 125 mls/hr IV ASDIR [facility] Last Admin: 01/12/19 21:38 Dose: Not Given Vancomycin HCl (Vancomycin (Pre-Docked)) 1,000 mg in 250 mls @ 166.667 mls/hr IVPB BID@0000,1200 [facility]; Protocol Last Admin: 01/12/19 23:51 Dose: 166.667 mls/hr Piperacillin Sod/Tazobactam (Sod 4.5 gm/ Dextrose) 100 mls @ 200 mls/hr IVPB TID [facility]; Protocol Last Admin: 01/13/19 05:29 Dose: 200 mls/hr Sodium Chloride (Normal Saline -) 1,000 mls @ 100 mls/hr IV ASDIR [facility] Last Admin: 01/12/19 21:30 Dose: 100 mls/hr Insulin Aspart (Novolog Vial Sliding Scale -) 1 vial SQ ACHS [facility]; Protocol Last Admin: 01/13/19 06:05 Dose: 10 units Meperidine HCl (Demerol Vial) 50 mg IM Q6H PRN PRN Reason: PAIN LEVEL 6-10 Ondansetron HCl (Zofran Injection) 4 mg IVPUSH Q6H PRN PRN Reason: NAUSEA AND/OR VOMITING Oxycodone HCl (Roxicodone -) 5 mg PO Q4H PRN PRN Reason: PAIN LEVEL 1-5 Last Admin: 01/12/19 21:24 Dose: 5 mg Promethazine HCl (Phenergan Injection -) 12.5 mg IVPUSH Q6H PRN PRN Reason: NAUSEA-FOR RESCUE AFTER 15 MIN Ramipril (Altace -) 5 mg PO DAILY [facility] Sitagliptin Phosphate (Januvia -) 100 mg PO DAILY@0700 [facility] Last Admin: 01/13/19 06:27 Dose: 100 mg - Objective Vital Signs: Vital Signs Temperature 98.2 F 09/17/19 06:43 Pulse Rate 71 01/13/19 06:43 Respiratory Rate 20 01/13/19 06:43 Blood Pressure 121/71 01/13/19 06:43 O2 Sat by Pulse Oximetry (%) 96 01/12/19 20:35 Labs: CBC, BMP 01/11/19 12:45 01/11/19 12:28 INR, PTT INR 1.46 (0.83-1.09) H 01/11/19 12:45 Problem List - Problems (1) Abscess of right buttock Code(s): L02.31 - CUTANEOUS ABSCESS OF BUTTOCK (2) Diabetes Code(s): E11.9 - TYPE 2 DIABETES MELLITUS WITHOUT COMPLICATIONS Qualifiers: Diabetes mellitus type: type 2 (3) Hypertension Code(s): I10 - ESSENTIAL (PRIMARY) HYPERTENSION Assessment/Plan Surgery : Patient is afebrile. Informed of operative findings. dressing changed by Dr. George. Change dressing with Dakins solution , twice a day. Continue antibiotics. gram stain and cultures are pending.
[2019-01-13] MEDS: amLODIPine BESYLATE 5 MG TABLET (FP) PO SCH (10:53)
[2019-01-13] MEDS: oxyCODONE HCL 5 MG TABLET PO PRN ×2 (10:54→22:35)
[2019-01-13] MEDS: RAMIPRIL 5 MG CAPSULE (FP) PO SCH (10:55)
[2019-01-13] MEDS: VANCOMYCIN 1 GRAM (PRE-DOCKED) 1,000 MG/250 ML BAG IVPB SCH (12:15)
--- NOTE | 2019-01-13 13:11 | PN ---
Progress Note, Physician History of Present Illness: stable operative note noted - Current Medication List Current Medications: Active Medications Acetaminophen (Tylenol -) 650 mg PO Q4H PRN PRN Reason: FEVER Amlodipine Besylate (Norvasc -) 5 mg PO DAILY [facility] Last Admin: 01/13/19 10:53 Dose: 5 mg Glipizide (Glucotrol -) 5 mg PO DAILY@0700 [facility] Last Admin: 01/13/19 06:27 Dose: 5 mg Lactated Ringer's (Lactated Ringers Solution) 1,000 mls @ 125 mls/hr IV ASDIR [facility] Last Admin: 01/12/19 21:38 Dose: Not Given Vancomycin HCl (Vancomycin (Pre-Docked)) 1,000 mg in 250 mls @ 166.667 mls/hr IVPB BID@0000,1200 [facility]; Protocol Last Admin: 01/13/19 12:15 Dose: 166.667 mls/hr Piperacillin Sod/Tazobactam (Sod 4.5 gm/ Dextrose) 100 mls @ 200 mls/hr IVPB TID [facility]; Protocol Last Admin: 01/13/19 05:29 Dose: 200 mls/hr Sodium Chloride (Normal Saline -) 1,000 mls @ 100 mls/hr IV ASDIR [facility] Last Admin: 01/12/19 21:30 Dose: 100 mls/hr Insulin Aspart (Novolog Vial Sliding Scale -) 1 vial SQ ACHS [facility]; Protocol Last Admin: 01/13/19 12:13 Dose: 4 units Meperidine HCl (Demerol Vial) 50 mg IM Q6H PRN PRN Reason: PAIN LEVEL 6-10 Ondansetron HCl (Zofran Injection) 4 mg IVPUSH Q6H PRN PRN Reason: NAUSEA AND/OR VOMITING Oxycodone HCl (Roxicodone -) 5 mg PO Q4H PRN PRN Reason: PAIN LEVEL 1-5 Last Admin: 01/13/19 10:54 Dose: 5 mg Promethazine HCl (Phenergan Injection -) 12.5 mg IVPUSH Q6H PRN PRN Reason: NAUSEA-FOR RESCUE AFTER 15 MIN Ramipril (Altace -) 5 mg PO DAILY [facility] Last Admin: 01/13/19 10:55 Dose: Not Given Sitagliptin Phosphate (Januvia -) 100 mg PO DAILY@0700 [facility] Last Admin: 01/13/19 06:27 Dose: 100 mg - Objective Vital Signs: Vital Signs Temperature 97.8 F 01/13/19 10:00 Pulse Rate 77 01/13/19 10:00 Respiratory Rate 18 01/13/19 10:00 Blood Pressure 122/64 01/13/19 10:00 O2 Sat by Pulse Oximetry (%) 96 01/12/19 20:35 Constitutional: Yes: No Distress, Calm Cardiovascular: Yes: Regular Rate and Rhythm Respiratory: Yes: Regular, CTA Bilaterally Gastrointestinal: Yes: Normal Bowel Sounds, Soft Musculoskeletal: Yes: WNL Extremities: Yes: WNL Wound/Incision: Yes: Dressing Dry and Intact Neurological: Yes: Alert, Oriented Psychiatric: Yes: Alert, Oriented Labs: CBC, BMP 01/11/19 12:45 01/11/19 12:28 INR, PTT INR 1.46 (0.83-1.09) H 01/11/19 12:45 Assessment/Plan roblem List - Problems (1) Diabetes Code(s): E11.9 - TYPE 2 DIABETES MELLITUS WITHOUT COMPLICATIONS (2) Hyperlipemia Code(s): E78.5 - HYPERLIPIDEMIA, UNSPECIFIED (3) Hypertension Code(s): I10 - ESSENTIAL (PRIMARY) HYPERTENSION Assessment/Plan Rt buttock abscess r/o perirectal/perianal abscess Sepsis Fever Leukoyctosis DM HTN HLD continue abx follow vanco trough rest continue current mgmt wound care
--- NOTE | 2019-01-13 14:08 | PN ---
Progress Note (short form) - Note Progress Note: POD 1 s/p I&D R buttock and perianal abscess under GA. Patient doing well, pain controlled. Denies n/v. All questions answered.
[2019-01-13] MEDS: ACETAMINOPHEN 325 MG TABLET (FP) PO PRN (17:54)
[2019-01-13] MEDS: LACTATED RINGERS SOLUTION 1,000 ML IV SCH (21:48)
[2019-01-13] MEDS: SODIUM HYPOCHLORITE 0.25%- 473 ML BULK BOTTLE TP SCH (22:05)
[2019-01-13] MEDS: SODIUM CHLORIDE 1,000 ML IV SCH (22:09)
[2019-01-14] MEDS: VANCOMYCIN 1 GRAM (PRE-DOCKED) 1,000 MG/250 ML BAG IVPB SCH ×2 (01:14→11:11)
[2019-01-14] MEDS ORDERED: DEXTROSE 5%-WATER 100 ML IVPB ONE ×3 (06:01→21:50)
[2019-01-14] MEDS ORDERED: PIPERACILLIN/TAZOBACTAM 4.5 GM VIAL IVPB ONE ×3 (06:01→21:50)
[2019-01-14] MEDS: glipiZIDE 5 MG TABLET (FP) PO SCH (06:41)
[2019-01-14] MEDS: sitaGLIPtin PHOSPHATE 50 MG TABLET PO SCH (06:41)
[2019-01-14] MEDS: PIPERACILLIN/TAZOB 4.5 GM 4.5 GM in DEXTROSE 5%-WATER 100 ML IVPB SCH ×3 (06:41→22:02)
[2019-01-14] MEDS: INSULIN SLIDING SCALE (NOVOLOG) 1 VIAL SQ SCH ×4 (06:44→22:02)
--- NOTE | 2019-01-14 09:06 | PN ---
Progress Note, Physician Chief Complaint: Feels better,pain less - Current Medication List Current Medications: Active Medications Acetaminophen (Tylenol -) 650 mg PO Q4H PRN PRN Reason: FEVER Last Admin: 01/13/19 17:54 Dose: 650 mg Amlodipine Besylate (Norvasc -) 5 mg PO DAILY [facility] Last Admin: 01/13/19 10:53 Dose: 5 mg Glipizide (Glucotrol -) 5 mg PO DAILY@0700 [facility] Last Admin: 01/14/19 06:41 Dose: 5 mg Lactated Ringer's (Lactated Ringers Solution) 1,000 mls @ 125 mls/hr IV ASDIR [facility] Last Admin: 01/13/19 21:48 Dose: Not Given Vancomycin HCl (Vancomycin (Pre-Docked)) 1,000 mg in 250 mls @ 166.667 mls/hr IVPB BID@0000,1200 [facility]; Protocol Last Admin: 01/14/19 01:14 Dose: 166.667 mls/hr Piperacillin Sod/Tazobactam (Sod 4.5 gm/ Dextrose) 100 mls @ 200 mls/hr IVPB TID [facility]; Protocol Last Admin: 01/14/19 06:41 Dose: 200 mls/hr Sodium Chloride (Normal Saline -) 1,000 mls @ 100 mls/hr IV ASDIR [facility] Last Admin: 01/13/19 22:09 Dose: Not Given Insulin Aspart (Novolog Vial Sliding Scale -) 1 vial SQ ACHS [facility]; Protocol Last Admin: 01/14/19 06:44 Dose: 4 units Meperidine HCl (Demerol Vial) 50 mg IM Q6H PRN PRN Reason: PAIN LEVEL 6-10 Ondansetron HCl (Zofran Injection) 4 mg IVPUSH Q6H PRN PRN Reason: NAUSEA AND/OR VOMITING Oxycodone HCl (Roxicodone -) 5 mg PO Q4H PRN PRN Reason: PAIN LEVEL 1-5 Last Admin: 01/13/19 22:35 Dose: 5 mg Promethazine HCl (Phenergan Injection -) 12.5 mg IVPUSH Q6H PRN PRN Reason: NAUSEA-FOR RESCUE AFTER 15 MIN Ramipril (Altace -) 5 mg PO DAILY [facility] Last Admin: 01/13/19 10:55 Dose: Not Given Sitagliptin Phosphate (Januvia -) 100 mg PO DAILY@0700 [facility] Last Admin: 01/14/19 06:41 Dose: 100 mg Sodium Hypochlorite (Dakin's Solution 0.25% (Half-Strength) -) 1 applic TP BID [facility] Last Admin: 01/13/19 22:05 Dose: 1 applic - Objective Vital Signs: Vital Signs Temperature 98.0 F 01/14/19 06:00 Pulse Rate 69 01/14/19 06:00 Respiratory Rate 18 01/14/19 06:00 Blood Pressure 144/73 01/14/19 06:00 O2 Sat by Pulse Oximetry (%) 97 01/13/19 21:00 Constitutional: Yes: No Distress Eyes: Yes: WNL HENT: Yes: WNL Neck: Yes: WNL Cardiovascular: Yes: WNL Respiratory: Yes: WNL Gastrointestinal: Yes: WNL ...Rectal Exam: Yes: Deferred Edema: No Wound/Incision: Yes: Dressing Dry and Intact Neurological: Yes: Alert Labs: CBC, BMP 01/11/19 12:45 01/11/19 12:28 INR, PTT INR 1.46 (0.83-1.09) H 01/11/19 12:45 Assessment/Plan Rpt labs in AM
[2019-01-14] MEDS: amLODIPine BESYLATE 5 MG TABLET (FP) PO SCH (11:07)
[2019-01-14] MEDS: RAMIPRIL 5 MG CAPSULE (FP) PO SCH (11:08)
[2019-01-14] MEDS: SODIUM HYPOCHLORITE 0.25%- 473 ML BULK BOTTLE TP SCH ×2 (11:08→22:03)
--- NOTE | 2019-01-14 11:34 | PN ---
Progress Note, Physician History of Present Illness: PATIENT STABLE NO COMPLAINTS - Current Medication List Current Medications: Active Medications Acetaminophen (Tylenol -) 650 mg PO Q4H PRN PRN Reason: FEVER Last Admin: 01/13/19 17:54 Dose: 650 mg Amlodipine Besylate (Norvasc -) 5 mg PO DAILY [facility] 234 BEDS [facility] Last Admin: 01/14/19 11:07 Dose: 5 mg Glipizide (Glucotrol -) 5 mg PO DAILY@0700 [facility] 234 BEDS AT [facility] Last Admin: 01/14/19 06:41 Dose: 5 mg Lactated Ringer's (Lactated Ringers Solution) 1,000 mls @ 125 mls/hr IV ASDIR [facility]S [facility]CLUDE 234 BEDS AT [facility] Last Admin: 01/13/19 21:48 Dose: Not Given Vancomycin HCl (Vancomycin (Pre-Docked)) 1,000 mg in 250 mls @ 166.667 mls/hr IVPB BID@0000,1200 [facility] 234 [facility]S [facility]; Protocol Last Admin: 01/14/19 11:11 Dose: 166.667 mls/hr Piperacillin Sod/Tazobactam (Sod 4.5 gm/ Dextrose) 100 mls @ 200 mls/hr IVPB TID [facility] 234 BEDS AT [facility]; Protocol Last Admin: 01/14/19 06:41 Dose: 200 mls/hr Insulin Aspart (Novolog Vial Sliding Scale -) 1 vial SQ ACHS [facility] 234 BEDS [facility]; Protocol Last Admin: 01/14/19 11:22 Dose: 6 units Ondansetron HCl (Zofran Injection) 4 mg IVPUSH Q6H PRN PRN Reason: NAUSEA AND/OR VOMITING Oxycodone HCl (Roxicodone -) 5 mg PO Q4H PRN PRN Reason: PAIN LEVEL 1-5 Last Admin: 01/13/19 22:35 Dose: 5 mg Pneumococcal 13-Valent Conj Vacc (Prevnar 13 Syringe -) 0.5 ml IM .ONCE ONE Stop: 01/14/19 12:31 Promethazine HCl (Phenergan Injection -) 12.5 mg IVPUSH Q6H PRN PRN Reason: NAUSEA-FOR RESCUE AFTER 15 MIN Ramipril (Altace -) 5 mg PO DAILY [facility] 234 BEDS [facility] Last Admin: 01/14/19 11:08 Dose: Not Given Sitagliptin Phosphate (Januvia -) 100 mg PO DAILY@0700 [facility] 234 BEDS AT [facility] Last Admin: 01/14/19 06:41 Dose: 100 mg Sodium Hypochlorite (Dakin's Solution 0.25% (Half-Strength) -) 1 applic TP BID [facility] Last Admin: 01/14/19 11:08 Dose: 1 applic - Objective Vital Signs: Vital Signs Temperature 98.0 F 01/14/19 06:00 Pulse Rate 69 01/14/19 06:00 Respiratory Rate 18 01/14/19 06:00 Blood Pressure 144/73 01/14/19 06:00 O2 Sat by Pulse Oximetry (%) 97 01/13/19 21:00 Constitutional: Yes: No Distress, Calm Cardiovascular: Yes: Regular Rate and Rhythm Respiratory: Yes: Regular, CTA Bilaterally Gastrointestinal: Yes: Normal Bowel Sounds, Soft Musculoskeletal: Yes: WNL Extremities: Yes: WNL Wound/Incision: Yes: Dressing Dry and Intact Neurological: Yes: Alert, Oriented Psychiatric: Yes: Alert, Oriented Labs: CBC, BMP 01/11/19 12:45 01/11/19 12:28 INR, PTT INR 1.46 (0.83-1.09) H 01/11/19 12:45 Assessment/Plan colemanm List - Problems (1) Diabetes Code(s): E11.9 - TYPE 2 DIABETES MELLITUS WITHOUT COMPLICATIONS (2) Hyperlipemia Code(s): E78.5 - HYPERLIPIDEMIA, UNSPECIFIED (3) Hypertension Code(s): I10 - ESSENTIAL (PRIMARY) HYPERTENSION Assessment/Plan Rt buttock abscess r/o perirectal/perianal abscess Sepsis Fever Leukoyctosis DM HTN HLD necrotizing fascitis plan will check vanco trough tomorrow wound care rest as per the team continue abx awaiting cx report
[2019-01-14] MEDS ORDERED: PNEUMOC 13-VAL CONJ-DIP CRM/PF 0.5 ML DISP.SYRIN IM ONE (12:30)
--- NOTE | 2019-01-14 14:28 | PN ---
Progress Note, Physician - Current Medication List Current Medications: Active Medications Acetaminophen (Tylenol -) 650 mg PO Q4H PRN PRN Reason: FEVER Last Admin: 01/13/19 17:54 Dose: 650 mg Amlodipine Besylate (Norvasc -) 5 mg PO DAILY [facility] Last Admin: 01/14/19 11:07 Dose: 5 mg Glipizide (Glucotrol -) 5 mg PO DAILY@0700 [facility] Last Admin: 01/14/19 06:41 Dose: 5 mg Lactated Ringer's (Lactated Ringers Solution) 1,000 mls @ 125 mls/hr IV ASDIR [facility] Last Admin: 01/13/19 21:48 Dose: Not Given Vancomycin HCl (Vancomycin (Pre-Docked)) 1,000 mg in 250 mls @ 166.667 mls/hr IVPB BID@0000,1200 [facility]; Protocol Last Admin: 01/14/19 11:11 Dose: 166.667 mls/hr Piperacillin Sod/Tazobactam (Sod 4.5 gm/ Dextrose) 100 mls @ 200 mls/hr IVPB TID [facility]; Protocol Last Admin: 01/14/19 06:41 Dose: 200 mls/hr Insulin Aspart (Novolog Vial Sliding Scale -) 1 vial SQ ACHS [facility]; Protocol Last Admin: 01/14/19 11:22 Dose: 6 units Ondansetron HCl (Zofran Injection) 4 mg IVPUSH Q6H PRN PRN Reason: NAUSEA AND/OR VOMITING Oxycodone HCl (Roxicodone -) 5 mg PO Q4H PRN PRN Reason: PAIN LEVEL 1-5 Last Admin: 01/13/19 22:35 Dose: 5 mg Promethazine HCl (Phenergan Injection -) 12.5 mg IVPUSH Q6H PRN PRN Reason: NAUSEA-FOR RESCUE AFTER 15 MIN Ramipril (Altace -) 5 mg PO DAILY [facility] Last Admin: 01/14/19 11:08 Dose: Not Given Sitagliptin Phosphate (Januvia -) 100 mg PO DAILY@0700 [facility] Last Admin: 01/14/19 06:41 Dose: 100 mg Sodium Hypochlorite (Dakin's Solution 0.25% (Half-Strength) -) 1 applic TP BID [facility] Last Admin: 01/14/19 11:08 Dose: 1 applic - Objective Vital Signs: Vital Signs Temperature 98.6 F 01/14/19 10:00 Pulse Rate 64 01/14/19 10:00 Respiratory Rate 17 01/14/19 10:00 Blood Pressure 125/64 01/14/19 10:00 O2 Sat by Pulse Oximetry (%) 97 01/13/19 21:00 Labs: CBC, BMP 01/11/19 12:45 01/11/19 12:28 INR, PTT INR 1.46 (0.83-1.09) H 01/11/19 12:45 Problem List - Problems (1) Abscess of right buttock Code(s): L02.31 - CUTANEOUS ABSCESS OF BUTTOCK (2) Diabetes Code(s): E11.9 - TYPE 2 DIABETES MELLITUS WITHOUT COMPLICATIONS Qualifiers: Diabetes mellitus type: type 2 (3) Hypertension Code(s): I10 - ESSENTIAL (PRIMARY) HYPERTENSION Assessment/Plan Surgery : dressing changed , wound irrigated with betadine and hydrogen peroxide mixed with saline. Wound packed with betadine soaked kerlex.. Continue antibiotics , wound care.
[2019-01-14] MEDS: oxyCODONE HCL 5 MG TABLET PO PRN (15:16)
--- NOTE | 2019-01-14 18:04 | PATH ---
Surgical Pathology Report Patient Name: ADRIANA THOMAS [facility]. Rec. #: [id number] /Age/Gender: 1950 (Age: 68) / M Account: [id number] Location: [address] [place] [address]/[facility] Taken: 01/12/2019 Received: 01/13/2019 Reported: 01/14/2019 Physicians: Luisa Zelaya M.D. Specimen(s) Received DEBRIDED TISSUE, BUTTOCKS, RIGHT Clinical History Right buttocks abscess Final Diagnosis DEBRIDED TISSUE, BUTTOCKS, RIGHT, EXCISION: FIBROADIPOSE TISSUE WITH MARKED ACUTE AND CHRONIC INFLAMMATION WITH ASSOCIATED NECROSIS IN A BACKGROUND OF ACUTE INFLAMMATORY EXUDATE. Electronically Signed Elisabeth Cerna M.D. Gross Description Received in formalin labeled "debrided tissue right buttocks" are multiple irregular fragments of alonzo to crandall necrotic soft tissue measuring 3 x 3 x 1 cm in aggregate. Marking Machine Operator sections are submitted in one cassette. [email or web address]/01/13/2019 jesse/01/13/2019
[2019-01-14] MEDS: LACTATED RINGERS SOLUTION 1,000 ML IV SCH (22:03)
[2019-01-15] MEDS: VANCOMYCIN 1 GRAM (PRE-DOCKED) 1,000 MG/250 ML BAG IVPB SCH ×2 (00:55→15:18)
[2019-01-15] MEDS ORDERED: PIPERACILLIN/TAZOBACTAM 4.5 GM VIAL IVPB ONE ×3 (05:18→21:56)
[2019-01-15] MEDS ORDERED: DEXTROSE 5%-WATER 100 ML IVPB ONE ×3 (05:18→21:56)
[2019-01-15] MEDS: INSULIN SLIDING SCALE (NOVOLOG) 1 VIAL SQ SCH ×4 (06:07→22:11)
[2019-01-15] MEDS: PIPERACILLIN/TAZOB 4.5 GM 4.5 GM in DEXTROSE 5%-WATER 100 ML IVPB SCH ×3 (06:08→22:10)
[2019-01-15] MEDS: sitaGLIPtin PHOSPHATE 50 MG TABLET PO SCH (06:08)
[2019-01-15] MEDS: glipiZIDE 5 MG TABLET (FP) PO SCH (06:08)
[2019-01-15] MEDS ORDERED: INSULIN (NOVOLOG) ASPART 100 UNITS/ML 10ML VIAL ONE (06:27)
[2019-01-15 07:20] LABS: EOS % 3.8 % (0-4.5); HEMATOCRIT 34.2 % (35.4-49); HEMOGLOBIN 11.7 GM/dL (11.7-16.9); LYMPH % 20.4 % (8-40); MCH 32.6 pg (25.7-33.7); MCHC 34.3 g/dl (32.0-35.9); MEAN CELL VOLUME 95.2 fl (80-96); MEAN PLT VOLUME 8.2 fl (7.5-11.1); MONO % 9.6 % (3.8-10.2); NEUT % 65.2 % (42.8-82.8); PLATELET COUNT 265 K/MM3 (134-434); RDW 12.9 % (11.9-15.9); WHITE BLOOD COUNT 9.3 K/mm3 (4.0-10.0)
[2019-01-15 07:45] LABS: ALBUMIN 2.5 g/dl (3.4-5.0); BILIRUBIN,TOTAL 0.7 mg/dL (0.2-1); BLOOD UREA NITROGEN 9.5 mg/dL (7-18); CALCIUM 8.2 mg/dL (8.5-10.1); CREATININE 0.7 mg/dL (0.55-1.3); POTASSIUM 3.4 mmol/L (3.5-5.1); TOT PROT 5.4 g/dl (6.4-8.2)
--- NOTE | 2019-01-15 09:25 | PN ---
Progress Note, Physician Chief Complaint: Feels better History of Present Illness: Dressing changed by Dr Zelaya - Current Medication List Current Medications: Active Medications Acetaminophen (Tylenol -) 650 mg PO Q4H PRN PRN Reason: FEVER Last Admin: 01/13/19 17:54 Dose: 650 mg Amlodipine Besylate (Norvasc -) 5 mg PO DAILY [facility] Last Admin: 01/14/19 11:07 Dose: 5 mg Glipizide (Glucotrol -) 5 mg PO DAILY@0700 [facility] Last Admin: 01/15/19 06:08 Dose: 5 mg Lactated Ringer's (Lactated Ringers Solution) 1,000 mls @ 125 mls/hr IV ASDIR [facility] Last Admin: 01/14/19 22:03 Dose: Not Given Vancomycin HCl (Vancomycin (Pre-Docked)) 1,000 mg in 250 mls @ 166.667 mls/hr IVPB BID@0000,1200 [facility]; Protocol Last Admin: 01/15/19 00:55 Dose: 166.667 mls/hr Piperacillin Sod/Tazobactam (Sod 4.5 gm/ Dextrose) 100 mls @ 200 mls/hr IVPB TID [facility]; Protocol Last Admin: 01/15/19 06:08 Dose: 200 mls/hr Insulin Aspart (Novolog Vial Sliding Scale -) 1 vial SQ ACHS [facility]; Protocol Last Admin: 01/15/19 06:07 Dose: Not Given Ondansetron HCl (Zofran Injection) 4 mg IVPUSH Q6H PRN PRN Reason: NAUSEA AND/OR VOMITING Oxycodone HCl (Roxicodone -) 5 mg PO Q4H PRN PRN Reason: PAIN LEVEL 1-5 Last Admin: 01/14/19 15:16 Dose: 5 mg Promethazine HCl (Phenergan Injection -) 12.5 mg IVPUSH Q6H PRN PRN Reason: NAUSEA-FOR RESCUE AFTER 15 MIN Ramipril (Altace -) 5 mg PO DAILY [facility] Last Admin: 01/14/19 11:08 Dose: Not Given Sitagliptin Phosphate (Januvia -) 100 mg PO DAILY@0700 [facility] Last Admin: 01/15/19 06:08 Dose: 100 mg Sodium Hypochlorite (Dakin's Solution 0.25% (Half-Strength) -) 1 applic TP BID [facility] Last Admin: 01/14/19 22:03 Dose: Not Given - Objective Vital Signs: Vital Signs Temperature 98.5 F 01/15/19 06:00 Pulse Rate 69 01/15/19 06:00 Respiratory Rate 18 01/15/19 06:00 Blood Pressure 145/77 01/15/19 06:00 O2 Sat by Pulse Oximetry (%) 98 01/14/19 21:00 Constitutional: Yes: No Distress Eyes: Yes: WNL HENT: Yes: WNL Neck: Yes: WNL Cardiovascular: Yes: WNL Respiratory: Yes: WNL Gastrointestinal: Yes: WNL ...Rectal Exam: Yes: Deferred Genitourinary: Yes: WNL Musculoskeletal: Yes: WNL Edema: No Wound/Incision: Yes: Dressing Dry and Intact Neurological: Yes: Alert Labs: CBC, BMP 01/15/19 06:50 01/15/19 06:50 INR, PTT INR 1.46 (0.83-1.09) H 01/11/19 12:45 Assessment/Plan Continue same trt
[2019-01-15] MEDS: amLODIPine BESYLATE 5 MG TABLET (FP) PO SCH (10:11)
[2019-01-15] MEDS: RAMIPRIL 5 MG CAPSULE (FP) PO SCH (10:12)
[2019-01-15] MEDS: oxyCODONE HCL 5 MG TABLET PO PRN (10:17)
--- NOTE | 2019-01-15 10:42 | PN ---
Progress Note, Physician History of Present Illness: stable pain - Current Medication List Current Medications: Active Medications Acetaminophen (Tylenol -) 650 mg PO Q4H PRN PRN Reason: FEVER Last Admin: 01/13/19 17:54 Dose: 650 mg Amlodipine Besylate (Norvasc -) 5 mg PO DAILY [facility] Last Admin: 01/15/19 10:11 Dose: 5 mg Glipizide (Glucotrol -) 5 mg PO DAILY@0700 [facility] Last Admin: 01/15/19 06:08 Dose: 5 mg Lactated Ringer's (Lactated Ringers Solution) 1,000 mls @ 125 mls/hr IV ASDIR [facility] Last Admin: 01/14/19 22:03 Dose: Not Given Vancomycin HCl (Vancomycin (Pre-Docked)) 1,000 mg in 250 mls @ 166.667 mls/hr IVPB BID@0000,1200 [facility]; Protocol Last Admin: 01/15/19 00:55 Dose: 166.667 mls/hr Piperacillin Sod/Tazobactam (Sod 4.5 gm/ Dextrose) 100 mls @ 200 mls/hr IVPB TID [facility]; Protocol Last Admin: 01/15/19 06:08 Dose: 200 mls/hr Insulin Aspart (Novolog Vial Sliding Scale -) 1 vial SQ ACHS [facility]; Protocol Last Admin: 01/15/19 06:07 Dose: Not Given Ondansetron HCl (Zofran Injection) 4 mg IVPUSH Q6H PRN PRN Reason: NAUSEA AND/OR VOMITING Oxycodone HCl (Roxicodone -) 5 mg PO Q4H PRN PRN Reason: PAIN LEVEL 1-5 Last Admin: 01/15/19 10:17 Dose: 5 mg Promethazine HCl (Phenergan Injection -) 12.5 mg IVPUSH Q6H PRN PRN Reason: NAUSEA-FOR RESCUE AFTER 15 MIN Ramipril (Altace -) 5 mg PO DAILY [facility] Last Admin: 01/15/19 10:12 Dose: 5 mg Sitagliptin Phosphate (Januvia -) 100 mg PO DAILY@0700 [facility] Last Admin: 01/15/19 06:08 Dose: 100 mg Sodium Hypochlorite (Dakin's Solution 0.25% (Half-Strength) -) 1 applic TP BID [facility] Last Admin: 01/14/19 22:03 Dose: Not Given - Objective Vital Signs: Vital Signs Temperature 98.4 F 01/15/19 09:40 Pulse Rate 79 01/15/19 09:40 Respiratory Rate 18 01/15/19 06:00 Blood Pressure 138/76 01/15/19 09:40 O2 Sat by Pulse Oximetry (%) 98 01/14/19 21:00 Constitutional: Yes: Calm, Mild Distress Cardiovascular: Yes: S1, S2 Respiratory: Yes: Regular, CTA Bilaterally Gastrointestinal: Yes: Normal Bowel Sounds, Soft Musculoskeletal: Yes: WNL Extremities: Yes: WNL Wound/Incision: Yes: Dressing Dry and Intact Neurological: Yes: Alert, Oriented Psychiatric: Yes: Alert, Oriented Labs: CBC, BMP 01/15/19 06:50 01/15/19 06:50 INR, PTT INR 1.46 (0.83-1.09) H 01/11/19 12:45 Assessment/Plan roblem List - Problems (1) Diabetes Code(s): E11.9 - TYPE 2 DIABETES MELLITUS WITHOUT COMPLICATIONS (2) Hyperlipemia Code(s): E78.5 - HYPERLIPIDEMIA, UNSPECIFIED (3) Hypertension Code(s): I10 - ESSENTIAL (PRIMARY) HYPERTENSION Assessment/Plan Rt buttock abscess r/o perirectal/perianal abscess Sepsis Fever Leukoyctosis DM HTN HLD necrotizing fascitis plan vanco trough awaited wound care rest as per the team continue abx awaiting cx report
[2019-01-15] MEDS ORDERED: oxyCODONE HCL 5 MG TABLET PO ONE (15:00)
[2019-01-15] MEDS: SODIUM HYPOCHLORITE 0.25%- 473 ML BULK BOTTLE TP SCH ×2 (15:22→21:54)
--- NOTE | 2019-01-15 16:15 | PN ---
Progress Note, Physician Chief Complaint: C/O severe pain in right buttock. He is afebrile. WBC is normal. gram stain : Gram positive . Wound : less drainage . Slow to grnulate. still with some slough. Continue antibiotics, dressing changes , sitz bath. will follow. - Current Medication List Current Medications: Active Medications Acetaminophen (Tylenol -) 650 mg PO Q4H PRN PRN Reason: FEVER Last Admin: 01/13/19 17:54 Dose: 650 mg Amlodipine Besylate (Norvasc -) 5 mg PO DAILY [facility] Last Admin: 01/15/19 10:11 Dose: 5 mg Glipizide (Glucotrol -) 5 mg PO DAILY@0700 [facility] Last Admin: 01/15/19 06:08 Dose: 5 mg Lactated Ringer's (Lactated Ringers Solution) 1,000 mls @ 125 mls/hr IV ASDIR [facility] Last Admin: 01/14/19 22:03 Dose: Not Given Vancomycin HCl (Vancomycin (Pre-Docked)) 1,000 mg in 250 mls @ 166.667 mls/hr IVPB BID@0000,1200 [facility]; Protocol Last Admin: 01/15/19 15:18 Dose: 166.667 mls/hr Piperacillin Sod/Tazobactam (Sod 4.5 gm/ Dextrose) 100 mls @ 200 mls/hr IVPB TID [facility]; Protocol Last Admin: 01/15/19 14:33 Dose: 200 mls/hr Insulin Aspart (Novolog Vial Sliding Scale -) 1 vial SQ ACHS [facility]; Protocol Last Admin: 01/15/19 11:22 Dose: 4 units Ondansetron HCl (Zofran Injection) 4 mg IVPUSH Q6H PRN PRN Reason: NAUSEA AND/OR VOMITING Oxycodone HCl (Roxicodone -) 5 mg PO Q4H PRN PRN Reason: PAIN LEVEL 1-5 Last Admin: 01/15/19 10:17 Dose: 5 mg Promethazine HCl (Phenergan Injection -) 12.5 mg IVPUSH Q6H PRN PRN Reason: NAUSEA-FOR RESCUE AFTER 15 MIN Ramipril (Altace -) 5 mg PO DAILY [facility] Last Admin: 01/15/19 10:12 Dose: 5 mg Sitagliptin Phosphate (Januvia -) 100 mg PO DAILY@0700 [facility] Last Admin: 01/15/19 06:08 Dose: 100 mg Sodium Hypochlorite (Dakin's Solution 0.25% (Half-Strength) -) 1 applic TP BID [facility] Last Admin: 01/15/19 15:22 Dose: 1 applic - Objective Vital Signs: Vital Signs Temperature 98.4 F 01/15/19 14:00 Pulse Rate 72 01/15/19 14:00 Respiratory Rate 18 01/15/19 14:00 Blood Pressure 152/78 01/15/19 14:00 O2 Sat by Pulse Oximetry (%) 98 01/14/19 21:00 Labs: CBC, BMP 01/15/19 06:50 01/15/19 06:50 INR, PTT INR 1.46 (0.83-1.09) H 01/11/19 12:45 Problem List - Problems (1) Abscess of right buttock Code(s): L02.31 - CUTANEOUS ABSCESS OF BUTTOCK (2) Diabetes Code(s): E11.9 - TYPE 2 DIABETES MELLITUS WITHOUT COMPLICATIONS Qualifiers: Diabetes mellitus type: type 2 (3) Hypertension Code(s): I10 - ESSENTIAL (PRIMARY) HYPERTENSION
[2019-01-15] MEDS: LACTATED RINGERS SOLUTION 1,000 ML IV SCH (21:53)
[2019-01-16] MEDS: VANCOMYCIN 1 GRAM (PRE-DOCKED) 1,000 MG/250 ML BAG IVPB SCH ×3 (00:14→23:40)
[2019-01-16] MEDS ORDERED: DEXTROSE 5%-WATER 100 ML IVPB ONE ×3 (05:10→21:36)
[2019-01-16] MEDS ORDERED: PIPERACILLIN/TAZOBACTAM 4.5 GM VIAL IVPB ONE ×3 (05:10→21:36)
[2019-01-16] MEDS: PIPERACILLIN/TAZOB 4.5 GM 4.5 GM in DEXTROSE 5%-WATER 100 ML IVPB SCH ×3 (06:04→21:41)
[2019-01-16] MEDS: glipiZIDE 5 MG TABLET (FP) PO SCH (06:21)
[2019-01-16] MEDS: sitaGLIPtin PHOSPHATE 50 MG TABLET PO SCH (06:21)
[2019-01-16] MEDS: INSULIN SLIDING SCALE (NOVOLOG) 1 VIAL SQ SCH ×4 (06:23→21:53)
[2019-01-16] MEDS ORDERED: INSULIN (NOVOLOG) ASPART 100 UNITS/ML 10ML VIAL ONE (07:02)
--- NOTE | 2019-01-16 09:35 | PN ---
Progress Note, Physician Chief Complaint: C/O constipation - Current Medication List Current Medications: Active Medications Acetaminophen (Tylenol -) 650 mg PO Q4H PRN PRN Reason: FEVER Last Admin: 01/13/19 17:54 Dose: 650 mg Amlodipine Besylate (Norvasc -) 5 mg PO DAILY [facility] Last Admin: 01/15/19 10:11 Dose: 5 mg Glipizide (Glucotrol -) 5 mg PO DAILY@0700 [facility] Last Admin: 01/16/19 06:21 Dose: 5 mg Lactated Ringer's (Lactated Ringers Solution) 1,000 mls @ 125 mls/hr IV ASDIR [facility] Last Admin: 01/15/19 21:53 Dose: Not Given Vancomycin HCl (Vancomycin (Pre-Docked)) 1,000 mg in 250 mls @ 166.667 mls/hr IVPB BID@0000,1200 [facility]; Protocol Last Admin: 01/16/19 00:14 Dose: 166.667 mls/hr Piperacillin Sod/Tazobactam (Sod 4.5 gm/ Dextrose) 100 mls @ 200 mls/hr IVPB TID [facility]; Protocol Last Admin: 01/16/19 06:04 Dose: 200 mls/hr Insulin Aspart (Novolog Vial Sliding Scale -) 1 vial SQ ACHS [facility]; Protocol Last Admin: 01/16/19 06:23 Dose: 4 units Ondansetron HCl (Zofran Injection) 4 mg IVPUSH Q6H PRN PRN Reason: NAUSEA AND/OR VOMITING Oxycodone HCl (Roxicodone -) 5 mg PO Q4H PRN PRN Reason: PAIN LEVEL 1-5 Last Admin: 01/15/19 10:17 Dose: 5 mg Promethazine HCl (Phenergan Injection -) 12.5 mg IVPUSH Q6H PRN PRN Reason: NAUSEA-FOR RESCUE AFTER 15 MIN Ramipril (Altace -) 5 mg PO DAILY [facility] Last Admin: 01/15/19 10:12 Dose: 5 mg Sitagliptin Phosphate (Januvia -) 100 mg PO DAILY@0700 [facility] Last Admin: 01/16/19 06:21 Dose: 100 mg Sodium Hypochlorite (Dakin's Solution 0.25% (Half-Strength) -) 1 applic TP BID [facility] Last Admin: 01/15/19 21:54 Dose: Not Given - Objective Vital Signs: Vital Signs Temperature 98.4 F 01/15/19 22:00 Pulse Rate 74 01/15/19 22:00 Respiratory Rate 18 01/15/19 22:00 Blood Pressure 155/83 01/15/19 22:00 O2 Sat by Pulse Oximetry (%) 98 01/15/19 21:00 Constitutional: Yes: No Distress Eyes: Yes: WNL HENT: Yes: WNL Neck: Yes: WNL Cardiovascular: Yes: WNL Respiratory: Yes: WNL Gastrointestinal: Yes: WNL ...Rectal Exam: Yes: Deferred Genitourinary: Yes: WNL Breast(s): Yes: WNL Wound/Incision: Yes: Clean/Dry Neurological: Yes: Alert Psychiatric: Yes: Alert Labs: CBC, BMP 01/15/19 06:50 01/15/19 06:50 INR, PTT INR 1.46 (0.83-1.09) H 01/11/19 12:45 Assessment/Plan Miralax for cnstipation
[2019-01-16] MEDS ORDERED: POLYETHYLENE GLYCOL 3350 119 GM BTL PO ONE (10:00)
[2019-01-16] MEDS: amLODIPine BESYLATE 5 MG TABLET (FP) PO SCH (11:48)
[2019-01-16] MEDS: ACETAMINOPHEN 325 MG TABLET (FP) PO PRN (11:48)
[2019-01-16] MEDS: RAMIPRIL 5 MG CAPSULE (FP) PO SCH (11:55)
--- NOTE | 2019-01-16 12:09 | PN ---
Progress Note, Physician History of Present Illness: stable no new issues - Current Medication List Current Medications: Active Medications Acetaminophen (Tylenol -) 650 mg PO Q4H PRN PRN Reason: FEVER Last Admin: 01/16/19 11:48 Dose: 650 mg Amlodipine Besylate (Norvasc -) 5 mg PO DAILY [facility] Last Admin: 01/16/19 11:48 Dose: 5 mg Glipizide (Glucotrol -) 5 mg PO DAILY@0700 [facility] Last Admin: 01/16/19 06:21 Dose: 5 mg Lactated Ringer's (Lactated Ringers Solution) 1,000 mls @ 125 mls/hr IV ASDIR [facility] Last Admin: 01/15/19 21:53 Dose: Not Given Vancomycin HCl (Vancomycin (Pre-Docked)) 1,000 mg in 250 mls @ 166.667 mls/hr IVPB BID@0000,1200 [facility]; Protocol Last Admin: 01/16/19 11:54 Dose: 166.667 mls/hr Piperacillin Sod/Tazobactam (Sod 4.5 gm/ Dextrose) 100 mls @ 200 mls/hr IVPB TID [facility]; Protocol Last Admin: 01/16/19 06:04 Dose: 200 mls/hr Insulin Aspart (Novolog Vial Sliding Scale -) 1 vial SQ ACHS [facility]; Protocol Last Admin: 01/16/19 06:23 Dose: 4 units Ondansetron HCl (Zofran Injection) 4 mg IVPUSH Q6H PRN PRN Reason: NAUSEA AND/OR VOMITING Oxycodone HCl (Roxicodone -) 5 mg PO Q4H PRN PRN Reason: PAIN LEVEL 1-5 Last Admin: 01/15/19 10:17 Dose: 5 mg Promethazine HCl (Phenergan Injection -) 12.5 mg IVPUSH Q6H PRN PRN Reason: NAUSEA-FOR RESCUE AFTER 15 MIN Ramipril (Altace -) 5 mg PO DAILY [facility] Last Admin: 01/16/19 11:55 Dose: Not Given Sitagliptin Phosphate (Januvia -) 100 mg PO DAILY@0700 [facility] Last Admin: 01/16/19 06:21 Dose: 100 mg Sodium Hypochlorite (Dakin's Solution 0.25% (Half-Strength) -) 1 applic TP BID [facility] Last Admin: 01/15/19 21:54 Dose: Not Given - Objective Vital Signs: Vital Signs Temperature 98.6 F 01/16/19 11:00 Pulse Rate 77 01/16/19 11:00 Respiratory Rate 18 01/16/19 11:00 Blood Pressure 146/79 01/16/19 11:00 O2 Sat by Pulse Oximetry (%) 98 01/15/19 21:00 Constitutional: Yes: No Distress, Calm Cardiovascular: Yes: S1, S2 Respiratory: Yes: Regular, CTA Bilaterally Gastrointestinal: Yes: Normal Bowel Sounds, Soft Musculoskeletal: Yes: WNL Extremities: Yes: WNL Wound/Incision: Yes: Dressing Dry and Intact Neurological: Yes: Alert, Oriented Psychiatric: Yes: Alert, Oriented Labs: CBC, BMP 01/15/19 06:50 01/15/19 06:50 INR, PTT INR 1.46 (0.83-1.09) H 01/11/19 12:45 Assessment/Plan roblem List - Problems (1) Diabetes Code(s): E11.9 - TYPE 2 DIABETES MELLITUS WITHOUT COMPLICATIONS (2) Hyperlipemia Code(s): E78.5 - HYPERLIPIDEMIA, UNSPECIFIED (3) Hypertension Code(s): I10 - ESSENTIAL (PRIMARY) HYPERTENSION Assessment/Plan Rt buttock abscess r/o perirectal/perianal abscess Sepsis Fever Leukoyctosis DM HTN HLD necrotizing fascitis plan wound care rest as per the team continue abx awaiting cx report
[2019-01-16] MEDS: SODIUM HYPOCHLORITE 0.25%- 473 ML BULK BOTTLE TP SCH ×2 (15:19→21:44)
--- NOTE | 2019-01-16 15:36 | PN ---
Progress Note, Physician - Current Medication List Current Medications: Active Medications Acetaminophen (Tylenol -) 650 mg PO Q4H PRN PRN Reason: FEVER Last Admin: 01/16/19 11:48 Dose: 650 mg Amlodipine Besylate (Norvasc -) 5 mg PO DAILY [facility] Last Admin: 01/16/19 11:48 Dose: 5 mg Glipizide (Glucotrol -) 5 mg PO DAILY@0700 [facility] Last Admin: 01/16/19 06:21 Dose: 5 mg Lactated Ringer's (Lactated Ringers Solution) 1,000 mls @ 125 mls/hr IV ASDIR [facility] Last Admin: 01/15/19 21:53 Dose: Not Given Vancomycin HCl (Vancomycin (Pre-Docked)) 1,000 mg in 250 mls @ 166.667 mls/hr IVPB BID@0000,1200 [facility]; Protocol Last Admin: 01/16/19 11:54 Dose: 166.667 mls/hr Piperacillin Sod/Tazobactam (Sod 4.5 gm/ Dextrose) 100 mls @ 200 mls/hr IVPB TID [facility]; Protocol Last Admin: 01/16/19 15:20 Dose: 200 mls/hr Insulin Aspart (Novolog Vial Sliding Scale -) 1 vial SQ ACHS [facility]; Protocol Last Admin: 01/16/19 12:51 Dose: 4 units Ondansetron HCl (Zofran Injection) 4 mg IVPUSH Q6H PRN PRN Reason: NAUSEA AND/OR VOMITING Oxycodone HCl (Roxicodone -) 5 mg PO Q4H PRN PRN Reason: PAIN LEVEL 1-5 Last Admin: 01/15/19 10:17 Dose: 5 mg Promethazine HCl (Phenergan Injection -) 12.5 mg IVPUSH Q6H PRN PRN Reason: NAUSEA-FOR RESCUE AFTER 15 MIN Ramipril (Altace -) 5 mg PO DAILY [facility] Last Admin: 01/16/19 11:55 Dose: Not Given Sitagliptin Phosphate (Januvia -) 100 mg PO DAILY@0700 [facility] Last Admin: 01/16/19 06:21 Dose: 100 mg Sodium Hypochlorite (Dakin's Solution 0.25% (Half-Strength) -) 1 applic TP BID [facility] Last Admin: 01/16/19 15:19 Dose: 1 applic - Objective Vital Signs: Vital Signs Temperature 97.8 F 01/16/19 14:32 Pulse Rate 73 01/16/19 14:32 Respiratory Rate 18 01/16/19 14:32 Blood Pressure 138/75 01/16/19 14:32 O2 Sat by Pulse Oximetry (%) 98 01/15/19 21:00 Labs: CBC, BMP 01/15/19 06:50 01/15/19 06:50 INR, PTT INR 1.46 (0.83-1.09) H 01/11/19 12:45 Problem List - Problems (1) Abscess of right buttock Code(s): L02.31 - CUTANEOUS ABSCESS OF BUTTOCK (2) Diabetes Code(s): E11.9 - TYPE 2 DIABETES MELLITUS WITHOUT COMPLICATIONS Qualifiers: Diabetes mellitus type: type 2 (3) Hypertension Code(s): I10 - ESSENTIAL (PRIMARY) HYPERTENSION Assessment/Plan Patient still has pain in right buttock. Afebrile, wound still has slough , no darinage , not granulating yet. WBC is normal. Wound dresed , irrigated. Continue antibiotics. Will obtain wound care consultation , for half-way wound management.
[2019-01-17] MEDS ORDERED: PIPERACILLIN/TAZOBACTAM 4.5 GM VIAL IVPB ONE ×3 (05:11→22:11)
[2019-01-17] MEDS ORDERED: DEXTROSE 5%-WATER 100 ML IVPB ONE ×3 (05:11→22:11)
[2019-01-17] MEDS: PIPERACILLIN/TAZOB 4.5 GM 4.5 GM in DEXTROSE 5%-WATER 100 ML IVPB SCH ×3 (05:18→22:20)
[2019-01-17] MEDS: sitaGLIPtin PHOSPHATE 50 MG TABLET PO SCH (06:02)
[2019-01-17] MEDS: glipiZIDE 5 MG TABLET (FP) PO SCH (06:02)
[2019-01-17] MEDS: LACTATED RINGERS SOLUTION 1,000 ML IV SCH (06:33)
[2019-01-17] MEDS: INSULIN SLIDING SCALE (NOVOLOG) 1 VIAL SQ SCH ×4 (07:06→22:32)
--- NOTE | 2019-01-17 07:29 | PN ---
Progress Note, Physician Chief Complaint: No new complaints, hemodynamically stable and afebrile History of Present Illness: 68 y.o. male with PMH of T2 DM , HTN, and HLD presents with c/o Rt buttock pain that developed 2 days ago. Pt states that the pain became severe and was unable to ambulate and reports recent fever/chills with nausea. In ER he was noted to have erythema/induration/severe tenderness in Rt medial buttock next to the anal region. Patient had a Temp of 101.8 with leukocytosis (wbc 21.4K) and tachycardia.Underwent I and D - Current Medication List Current Medications: Active Medications Acetaminophen (Tylenol -) 650 mg PO Q4H PRN PRN Reason: FEVER Last Admin: 01/16/19 11:48 Dose: 650 mg Amlodipine Besylate (Norvasc -) 5 mg PO DAILY [facility] Last Admin: 01/16/19 11:48 Dose: 5 mg Glipizide (Glucotrol -) 5 mg PO DAILY@0700 [facility] Last Admin: 01/17/19 06:02 Dose: 5 mg Lactated Ringer's (Lactated Ringers Solution) 1,000 mls @ 125 mls/hr IV ASDIR [facility] Last Admin: 01/17/19 06:33 Dose: Not Given Vancomycin HCl (Vancomycin (Pre-Docked)) 1,000 mg in 250 mls @ 166.667 mls/hr IVPB BID@0000,1200 [facility]; Protocol Last Admin: 01/16/19 23:40 Dose: 166.667 mls/hr Piperacillin Sod/Tazobactam (Sod 4.5 gm/ Dextrose) 100 mls @ 200 mls/hr IVPB TID [facility]; Protocol Last Admin: 01/17/19 05:18 Dose: 200 mls/hr Insulin Aspart (Novolog Vial Sliding Scale -) 1 vial SQ ACHS [facility]; Protocol Last Admin: 01/17/19 07:06 Dose: 4 units Ondansetron HCl (Zofran Injection) 4 mg IVPUSH Q6H PRN PRN Reason: NAUSEA AND/OR VOMITING Oxycodone HCl (Roxicodone -) 5 mg PO Q4H PRN PRN Reason: PAIN LEVEL 1-5 Last Admin: 01/15/19 10:17 Dose: 5 mg Promethazine HCl (Phenergan Injection -) 12.5 mg IVPUSH Q6H PRN PRN Reason: NAUSEA-FOR RESCUE AFTER 15 MIN Ramipril (Altace -) 5 mg PO DAILY [facility] Last Admin: 01/16/19 11:55 Dose: Not Given Sitagliptin Phosphate (Januvia -) 100 mg PO DAILY@0700 [facility] Last Admin: 01/17/19 06:02 Dose: 100 mg Sodium Hypochlorite (Dakin's Solution 0.25% (Half-Strength) -) 1 applic TP BID [facility] Last Admin: 01/16/19 21:44 Dose: Not Given - Objective Vital Signs: Vital Signs Temperature 98.4 F 01/17/19 05:44 Pulse Rate 72 01/17/19 05:44 Respiratory Rate 18 01/17/19 05:44 Blood Pressure 154/79 01/17/19 05:44 O2 Sat by Pulse Oximetry (%) 98 01/16/19 21:00 Constitutional: Yes: Well Nourished, No Distress, Calm Eyes: Yes: WNL, Conjunctiva Clear, EOM Intact HENT: Yes: Atraumatic. No: Pharyngeal Erythema, Thrush Neck: Yes: WNL, Supple, Trachea Midline Cardiovascular: Yes: Regular Rate and Rhythm, S1, S2. No: Tachycardia, JVD, Murmur Respiratory: Yes: Regular, CTA Bilaterally Gastrointestinal: Yes: Normal Bowel Sounds Musculoskeletal: No: Back Pain, Joint Stiffness, Joint Swelling Extremities: Yes: Cold. No: Amputation, Calf Tenderness Edema: No Peripheral Pulses: Left Doralis Pedis: 1+, Right Dorsalis Pedis: 1+ Wound/Incision: Yes: Dressing Dry and Intact (Rt Buttock s/p I and d) Neurological: Yes: WNL, Alert, Oriented ...Motor Strength: WNL, LUE, LLE, RUE, RLE Labs: CBC, BMP 01/15/19 06:50 01/15/19 06:50 INR, PTT INR 1.46 (0.83-1.09) H 01/11/19 12:45 Problem List - Problems (1) Abscess of right buttock Assessment/Plan: S/P I and Cont IV abx F/U ID and Surgery recommendations Code(s): L02.31 - CUTANEOUS ABSCESS OF BUTTOCK (2) Diabetes Assessment/Plan: Cont current management optimize as indicated Code(s): E11.9 - TYPE 2 DIABETES MELLITUS WITHOUT COMPLICATIONS Qualifiers: Diabetes mellitus type: type 2 Qualified Code(s): E11.22 - Type 2 diabetes mellitus with diabetic chronic kidney disease (3) Hypertension Assessment/Plan: Well controlled cont current management Code(s): I10 - ESSENTIAL (PRIMARY) HYPERTENSION (4) Hyperlipemia Assessment/Plan: Cont statin Code(s): E78.5 - HYPERLIPIDEMIA, UNSPECIFIED
--- NOTE | 2019-01-17 11:23 | PN ---
Progress Note, Physician History of Present Illness: stable pain at the operated site - Current Medication List Current Medications: Active Medications Acetaminophen (Tylenol -) 650 mg PO Q4H PRN PRN Reason: FEVER Last Admin: 01/16/19 11:48 Dose: 650 mg Amlodipine Besylate (Norvasc -) 5 mg PO DAILY [facility] Last Admin: 01/16/19 11:48 Dose: 5 mg Glipizide (Glucotrol -) 5 mg PO DAILY@0700 [facility] Last Admin: 01/17/19 06:02 Dose: 5 mg Lactated Ringer's (Lactated Ringers Solution) 1,000 mls @ 125 mls/hr IV ASDIR [facility] Last Admin: 01/17/19 06:33 Dose: Not Given Vancomycin HCl (Vancomycin (Pre-Docked)) 1,000 mg in 250 mls @ 166.667 mls/hr IVPB BID@0000,1200 [facility]; Protocol Last Admin: 01/16/19 23:40 Dose: 166.667 mls/hr Piperacillin Sod/Tazobactam (Sod 4.5 gm/ Dextrose) 100 mls @ 200 mls/hr IVPB TID [facility]; Protocol Last Admin: 01/17/19 05:18 Dose: 200 mls/hr Insulin Aspart (Novolog Vial Sliding Scale -) 1 vial SQ ACHS [facility]; Protocol Last Admin: 01/17/19 07:06 Dose: 4 units Ondansetron HCl (Zofran Injection) 4 mg IVPUSH Q6H PRN PRN Reason: NAUSEA AND/OR VOMITING Promethazine HCl (Phenergan Injection -) 12.5 mg IVPUSH Q6H PRN PRN Reason: NAUSEA-FOR RESCUE AFTER 15 MIN Ramipril (Altace -) 5 mg PO DAILY [facility] Last Admin: 01/16/19 11:55 Dose: Not Given Sitagliptin Phosphate (Januvia -) 100 mg PO DAILY@0700 [facility] Last Admin: 01/17/19 06:02 Dose: 100 mg Sodium Hypochlorite (Dakin's Solution 0.25% (Half-Strength) -) 1 applic TP BID [facility] Last Admin: 01/16/19 21:44 Dose: Not Given - Objective Vital Signs: Vital Signs Temperature 98.4 F 01/17/19 05:44 Pulse Rate 72 01/17/19 05:44 Respiratory Rate 18 01/17/19 05:44 Blood Pressure 154/79 01/17/19 05:44 O2 Sat by Pulse Oximetry (%) 98 01/16/19 21:00 Constitutional: Yes: No Distress, Calm Cardiovascular: Yes: S1, S2 Respiratory: Yes: Regular, CTA Bilaterally Gastrointestinal: Yes: Normal Bowel Sounds, Soft Musculoskeletal: Yes: WNL Extremities: Yes: WNL Wound/Incision: Yes: Dressing Dry and Intact Neurological: Yes: Alert, Oriented Psychiatric: Yes: Alert, Oriented Labs: CBC, BMP 01/15/19 06:50 01/15/19 06:50 INR, PTT INR 1.46 (0.83-1.09) H 01/11/19 12:45 Assessment/Plan roblem List - Problems (1) Diabetes Code(s): E11.9 - TYPE 2 DIABETES MELLITUS WITHOUT COMPLICATIONS (2) Hyperlipemia Code(s): E78.5 - HYPERLIPIDEMIA, UNSPECIFIED (3) Hypertension Code(s): I10 - ESSENTIAL (PRIMARY) HYPERTENSION Assessment/Plan Rt buttock abscess r/o perirectal/perianal abscess Sepsis Fever Leukoyctosis DM HTN HLD necrotizing fascitis plan wound care rest as per the team continue abx awaiting identification of the organism
[2019-01-17] MEDS ORDERED: PT OWN MED DRAWER 7, Y5N ONE (11:48)
[2019-01-17] MEDS: amLODIPine BESYLATE 5 MG TABLET (FP) PO SCH (12:06)
[2019-01-17] MEDS: RAMIPRIL 5 MG CAPSULE (FP) PO SCH (12:12)
[2019-01-17] MEDS: SODIUM HYPOCHLORITE 0.25%- 473 ML BULK BOTTLE TP SCH (12:14)
--- NOTE | 2019-01-17 13:45 | PN ---
Progress Note, Physician - Current Medication List Current Medications: Active Medications Acetaminophen (Tylenol -) 650 mg PO Q4H PRN PRN Reason: FEVER Last Admin: 01/16/19 11:48 Dose: 650 mg Amlodipine Besylate (Norvasc -) 5 mg PO DAILY [facility] Last Admin: 01/17/19 12:06 Dose: 5 mg Glipizide (Glucotrol -) 5 mg PO DAILY@0700 [facility] Last Admin: 01/17/19 06:02 Dose: 5 mg Lactated Ringer's (Lactated Ringers Solution) 1,000 mls @ 125 mls/hr IV ASDIR [facility] Last Admin: 01/17/19 06:33 Dose: Not Given Vancomycin HCl (Vancomycin (Pre-Docked)) 1,000 mg in 250 mls @ 166.667 mls/hr IVPB BID@0000,1200 [facility]; Protocol Last Admin: 01/16/19 23:40 Dose: 166.667 mls/hr Piperacillin Sod/Tazobactam (Sod 4.5 gm/ Dextrose) 100 mls @ 200 mls/hr IVPB TID [facility]; Protocol Last Admin: 01/17/19 05:18 Dose: 200 mls/hr Insulin Aspart (Novolog Vial Sliding Scale -) 1 vial SQ ACHS [facility]; Protocol Last Admin: 01/17/19 12:32 Dose: 4 units Ondansetron HCl (Zofran Injection) 4 mg IVPUSH Q6H PRN PRN Reason: NAUSEA AND/OR VOMITING Promethazine HCl (Phenergan Injection -) 12.5 mg IVPUSH Q6H PRN PRN Reason: NAUSEA-FOR RESCUE AFTER 15 MIN Ramipril (Altace -) 5 mg PO DAILY [facility] Last Admin: 01/17/19 12:12 Dose: 5 mg Sitagliptin Phosphate (Januvia -) 100 mg PO DAILY@0700 [facility] Last Admin: 01/17/19 06:02 Dose: 100 mg Sodium Hypochlorite (Dakin's Solution 0.25% (Half-Strength) -) 1 applic TP BID [facility] Last Admin: 01/17/19 12:14 Dose: 1 applic - Objective Vital Signs: Vital Signs Temperature 98.4 F 01/17/19 05:44 Pulse Rate 72 01/17/19 05:44 Respiratory Rate 18 01/17/19 05:44 Blood Pressure 154/79 01/17/19 05:44 O2 Sat by Pulse Oximetry (%) 98 01/16/19 21:00 Labs: CBC, BMP 01/15/19 06:50 01/15/19 06:50 INR, PTT INR 1.46 (0.83-1.09) H 01/11/19 12:45 Problem List - Problems (1) Abscess of right buttock Code(s): L02.31 - CUTANEOUS ABSCESS OF BUTTOCK (2) Diabetes Code(s): E11.9 - TYPE 2 DIABETES MELLITUS WITHOUT COMPLICATIONS Qualifiers: Diabetes mellitus type: type 2 Qualified Code(s): E11.22 - Type 2 diabetes mellitus with diabetic chronic kidney disease (3) Hypertension Code(s): I10 - ESSENTIAL (PRIMARY) HYPERTENSION Assessment/Plan Surgery: Patient still in pain, T max99.9. Blood sugar elevated. Cultures are pending. WBC is normal. Wound is open, with some slough. Continue antibiotics, wound care. Probable discharge on saturday.
[2019-01-17] MEDS: VANCOMYCIN 1 GRAM (PRE-DOCKED) 1,000 MG/250 ML BAG IVPB SCH ×2 (14:10→23:59)
[2019-01-18] MEDS: SODIUM HYPOCHLORITE 0.25%- 473 ML BULK BOTTLE TP SCH ×4 (00:25→21:08)
[2019-01-18] MEDS ORDERED: PIPERACILLIN/TAZOBACTAM 4.5 GM VIAL IVPB ONE ×3 (04:47→20:49)
[2019-01-18] MEDS ORDERED: DEXTROSE 5%-WATER 100 ML IVPB ONE ×3 (04:48→20:49)
[2019-01-18] MEDS: PIPERACILLIN/TAZOB 4.5 GM 4.5 GM in DEXTROSE 5%-WATER 100 ML IVPB SCH ×3 (05:08→21:08)
[2019-01-18] MEDS: sitaGLIPtin PHOSPHATE 50 MG TABLET PO SCH (06:16)
[2019-01-18] MEDS: glipiZIDE 5 MG TABLET (FP) PO SCH (06:16)
[2019-01-18] MEDS: INSULIN SLIDING SCALE (NOVOLOG) 1 VIAL SQ SCH ×4 (06:20→21:39)
[2019-01-18] MEDS: RAMIPRIL 5 MG CAPSULE (FP) PO SCH (09:41)
[2019-01-18] MEDS: amLODIPine BESYLATE 5 MG TABLET (FP) PO SCH (09:41)
--- NOTE | 2019-01-18 12:03 | PN ---
Progress Note, Physician History of Present Illness: cx still pending pain surgery findings noted - Current Medication List Current Medications: Active Medications Acetaminophen (Tylenol -) 650 mg PO Q4H PRN PRN Reason: FEVER Last Admin: 01/16/19 11:48 Dose: 650 mg Amlodipine Besylate (Norvasc -) 5 mg PO DAILY [facility] Last Admin: 01/18/19 09:41 Dose: 5 mg Glipizide (Glucotrol -) 5 mg PO DAILY@0700 [facility] Last Admin: 01/18/19 06:16 Dose: 5 mg Vancomycin HCl (Vancomycin (Pre-Docked)) 1,000 mg in 250 mls @ 166.667 mls/hr IVPB BID@0000,1200 [facility]; Protocol Last Admin: 01/17/19 23:59 Dose: 166.667 mls/hr Piperacillin Sod/Tazobactam (Sod 4.5 gm/ Dextrose) 100 mls @ 200 mls/hr IVPB TID [facility]; Protocol Last Admin: 01/18/19 05:08 Dose: 200 mls/hr Insulin Aspart (Novolog Vial Sliding Scale -) 1 vial SQ ACHS [facility]; Protocol Last Admin: 01/18/19 10:57 Dose: 6 units Ondansetron HCl (Zofran Injection) 4 mg IVPUSH Q6H PRN PRN Reason: NAUSEA AND/OR VOMITING Promethazine HCl (Phenergan Injection -) 12.5 mg IVPUSH Q6H PRN PRN Reason: NAUSEA-FOR RESCUE AFTER 15 MIN Ramipril (Altace -) 5 mg PO DAILY [facility] Last Admin: 01/18/19 09:41 Dose: 5 mg Sitagliptin Phosphate (Januvia -) 100 mg PO DAILY@0700 [facility] Last Admin: 01/18/19 06:16 Dose: 100 mg Sodium Hypochlorite (Dakin's Solution 0.25% (Half-Strength) -) 1 applic TP BID [facility] Last Admin: 01/18/19 09:44 Dose: Not Given - Objective Vital Signs: Vital Signs Temperature 98.5 F 01/18/19 06:00 Pulse Rate 73 01/18/19 06:00 Respiratory Rate 18 01/18/19 06:00 Blood Pressure 134/66 01/18/19 06:00 O2 Sat by Pulse Oximetry (%) 97 01/17/19 21:00 Constitutional: Yes: Calm, Mild Distress Cardiovascular: Yes: S1, S2 Respiratory: Yes: Regular, CTA Bilaterally Gastrointestinal: Yes: Normal Bowel Sounds, Soft Musculoskeletal: Yes: WNL Extremities: Yes: WNL Wound/Incision: Yes: Dressing Dry and Intact Neurological: Yes: Alert, Oriented Psychiatric: Yes: Alert, Oriented Labs: CBC, BMP 01/15/19 06:50 01/15/19 06:50 INR, PTT INR 1.46 (0.83-1.09) H 01/11/19 12:45 Assessment/Plan roblem List - Problems (1) Diabetes Code(s): E11.9 - TYPE 2 DIABETES MELLITUS WITHOUT COMPLICATIONS (2) Hyperlipemia Code(s): E78.5 - HYPERLIPIDEMIA, UNSPECIFIED (3) Hypertension Code(s): I10 - ESSENTIAL (PRIMARY) HYPERTENSION Assessment/Plan Rt buttock abscess r/o perirectal/perianal abscess Sepsis Fever Leukoyctosis DM HTN HLD necrotizing fascitis plan wound care rest as per the team continue abx awaiting identification of the organism
[2019-01-18] MEDS: VANCOMYCIN 1 GRAM (PRE-DOCKED) 1,000 MG/250 ML BAG IVPB SCH ×2 (12:42→23:20)
--- NOTE | 2019-01-18 15:31 | PN ---
Progress Note, Physician Chief Complaint: No new complaints, hemodynamically stable and afebrile, still c/o pain - Current Medication List Current Medications: Active Medications Acetaminophen (Tylenol -) 650 mg PO Q4H PRN PRN Reason: FEVER Last Admin: 01/16/19 11:48 Dose: 650 mg Amlodipine Besylate (Norvasc -) 5 mg PO DAILY [facility] Last Admin: 01/18/19 09:41 Dose: 5 mg Glipizide (Glucotrol -) 5 mg PO DAILY@0700 [facility] Last Admin: 01/18/19 06:16 Dose: 5 mg Vancomycin HCl (Vancomycin (Pre-Docked)) 1,000 mg in 250 mls @ 166.667 mls/hr IVPB BID@0000,1200 [facility]; Protocol Last Admin: 01/18/19 12:42 Dose: 166.667 mls/hr Piperacillin Sod/Tazobactam (Sod 4.5 gm/ Dextrose) 100 mls @ 200 mls/hr IVPB TID [facility]; Protocol Last Admin: 01/18/19 05:08 Dose: 200 mls/hr Insulin Aspart (Novolog Vial Sliding Scale -) 1 vial SQ ACHS [facility]; Protocol Last Admin: 01/18/19 10:57 Dose: 6 units Ondansetron HCl (Zofran Injection) 4 mg IVPUSH Q6H PRN PRN Reason: NAUSEA AND/OR VOMITING Promethazine HCl (Phenergan Injection -) 12.5 mg IVPUSH Q6H PRN PRN Reason: NAUSEA-FOR RESCUE AFTER 15 MIN Ramipril (Altace -) 5 mg PO DAILY [facility] Last Admin: 01/18/19 09:41 Dose: 5 mg Sitagliptin Phosphate (Januvia -) 100 mg PO DAILY@0700 [facility] Last Admin: 01/18/19 06:16 Dose: 100 mg Sodium Hypochlorite (Dakin's Solution 0.25% (Half-Strength) -) 1 applic TP BID [facility] Last Admin: 01/18/19 09:44 Dose: Not Given - Objective Vital Signs: Vital Signs Temperature 98.7 F 01/18/19 14:00 Pulse Rate 76 01/18/19 14:00 Respiratory Rate 18 01/18/19 14:00 Blood Pressure 128/67 01/18/19 14:00 O2 Sat by Pulse Oximetry (%) 97 01/17/19 21:00 Constitutional: Yes: Well Nourished, No Distress, Calm Eyes: Yes: WNL, Conjunctiva Clear, EOM Intact HENT: Yes: Atraumatic. No: Pharyngeal Erythema, Thrush Neck: Yes: WNL, Supple, Trachea Midline Cardiovascular: Yes: Regular Rate and Rhythm, S1, S2. No: Tachycardia, JVD, Murmur Respiratory: Yes: Regular, CTA Bilaterally Gastrointestinal: Yes: Normal Bowel Sounds Musculoskeletal: No: Back Pain, Joint Stiffness, Joint Swelling Extremities: Yes: Cold. No: Amputation, Calf Tenderness Edema: No Peripheral Pulses: Left Doralis Pedis: 1+, Right Dorsalis Pedis: 1+ Wound/Incision: Yes: Dressing Dry and Intact (Rt Buttock s/p I and d) Neurological: Yes: WNL, Alert, Oriented ...Motor Strength: WNL, LUE, LLE, RUE, RLE Labs: CBC, BMP 01/15/19 06:50 01/15/19 06:50 INR, PTT INR 1.46 (0.83-1.09) H 01/11/19 12:45 Problem List - Problems (1) Abscess of right buttock Assessment/Plan: S/P I and Cont IV abx F/U ID and Surgery recommendations Code(s): L02.31 - CUTANEOUS ABSCESS OF BUTTOCK (2) Diabetes Assessment/Plan: Cont current management optimize as indicated Code(s): E11.9 - TYPE 2 DIABETES MELLITUS WITHOUT COMPLICATIONS Qualifiers: Diabetes mellitus type: type 2 Qualified Code(s): E11.22 - Type 2 diabetes mellitus with diabetic chronic kidney disease (3) Hypertension Assessment/Plan: Well controlled cont current management Code(s): I10 - ESSENTIAL (PRIMARY) HYPERTENSION (4) Hyperlipemia Assessment/Plan: Cont statin Code(s): E78.5 - HYPERLIPIDEMIA, UNSPECIFIED
[2019-01-19] MEDS ORDERED: PIPERACILLIN/TAZOBACTAM 4.5 GM VIAL IVPB ONE ×3 (04:33→21:35)
[2019-01-19] MEDS ORDERED: DEXTROSE 5%-WATER 100 ML IVPB ONE ×3 (04:34→21:35)
[2019-01-19] MEDS: PIPERACILLIN/TAZOB 4.5 GM 4.5 GM in DEXTROSE 5%-WATER 100 ML IVPB SCH ×2 (06:16→15:42)
[2019-01-19] MEDS: INSULIN SLIDING SCALE (NOVOLOG) 1 VIAL SQ SCH ×4 (06:32→22:05)
[2019-01-19] MEDS: glipiZIDE 5 MG TABLET (FP) PO SCH (06:32)
[2019-01-19] MEDS: sitaGLIPtin PHOSPHATE 50 MG TABLET PO SCH (06:32)
[2019-01-19 08:10] LABS: BASO % 0.8 % (0-2.0); EOS % 3.6 % (0-4.5); HEMATOCRIT 39.1 % (35.4-49); HEMOGLOBIN 13.2 GM/dL (11.7-16.9); LYMPH % 26.4 % (8-40); MCH 32.1 pg (25.7-33.7); MCHC 33.8 g/dl (32.0-35.9); MEAN CELL VOLUME 94.8 fl (80-96); MONO % 7.2 % (3.8-10.2); PLATELET COUNT 354 K/MM3 (134-434); RBC 4.12 M/mm3 (4.00-5.60); RDW 13.4 % (11.9-15.9); WHITE BLOOD COUNT 8.1 K/mm3 (4.0-10.0)
[2019-01-19 08:29] LABS: BLOOD UREA NITROGEN 14.4 mg/dL (7-18); CALCIUM 9.2 mg/dL (8.5-10.1); POTASSIUM 4.5 mmol/L (3.5-5.1)
--- NOTE | 2019-01-19 08:46 | PN ---
Progress Note, Physician History of Present Illness: stable no new issues - Current Medication List Current Medications: Active Medications Acetaminophen (Tylenol -) 650 mg PO Q4H PRN PRN Reason: FEVER Last Admin: 01/16/19 11:48 Dose: 650 mg Amlodipine Besylate (Norvasc -) 5 mg PO DAILY [facility] Last Admin: 01/18/19 09:41 Dose: 5 mg Glipizide (Glucotrol -) 5 mg PO DAILY@0700 [facility] Last Admin: 01/19/19 06:32 Dose: 5 mg Vancomycin HCl (Vancomycin (Pre-Docked)) 1,000 mg in 250 mls @ 166.667 mls/hr IVPB BID@0000,1200 [facility]; Protocol Last Admin: 01/18/19 23:20 Dose: 166.667 mls/hr Piperacillin Sod/Tazobactam (Sod 4.5 gm/ Dextrose) 100 mls @ 200 mls/hr IVPB TID [facility]; Protocol Last Admin: 01/19/19 06:16 Dose: 200 mls/hr Insulin Aspart (Novolog Vial Sliding Scale -) 1 vial SQ ACHS [facility]; Protocol Last Admin: 01/19/19 06:32 Dose: 8 units Ondansetron HCl (Zofran Injection) 4 mg IVPUSH Q6H PRN PRN Reason: NAUSEA AND/OR VOMITING Promethazine HCl (Phenergan Injection -) 12.5 mg IVPUSH Q6H PRN PRN Reason: NAUSEA-FOR RESCUE AFTER 15 MIN Ramipril (Altace -) 5 mg PO DAILY [facility] Last Admin: 01/18/19 09:41 Dose: 5 mg Sitagliptin Phosphate (Januvia -) 100 mg PO DAILY@0700 [facility] Last Admin: 01/19/19 06:32 Dose: 100 mg Sodium Hypochlorite (Dakin's Solution 0.25% (Half-Strength) -) 1 applic TP BID [facility] Last Admin: 01/18/19 21:08 Dose: 1 applic - Objective Vital Signs: Vital Signs Temperature 97.9 F 01/19/19 05:55 Pulse Rate 69 01/19/19 05:55 Respiratory Rate 18 01/19/19 05:55 Blood Pressure 126/66 01/19/19 05:55 O2 Sat by Pulse Oximetry (%) 97 01/18/19 09:00 Constitutional: Yes: No Distress, Calm Cardiovascular: Yes: S1, S2 Respiratory: Yes: Regular, CTA Bilaterally Musculoskeletal: Yes: WNL Extremities: Yes: WNL Wound/Incision: Yes: Dressing Dry and Intact Neurological: Yes: Alert, Oriented Psychiatric: Yes: Alert, Oriented Labs: CBC, BMP 01/19/19 07:15 01/19/19 07:15 INR, PTT INR 1.46 (0.83-1.09) H 01/11/19 12:45 Assessment/Plan roble List - Problems (1) Diabetes Code(s): E11.9 - TYPE 2 DIABETES MELLITUS WITHOUT COMPLICATIONS (2) Hyperlipemia Code(s): E78.5 - HYPERLIPIDEMIA, UNSPECIFIED (3) Hypertension Code(s): I10 - ESSENTIAL (PRIMARY) HYPERTENSION Assessment/Plan Rt buttock abscess r/o perirectal/perianal abscess Sepsis Fever Leukoyctosis DM HTN HLD necrotizing fascitis plan wound care rest as per the team continue abx awaiting identification of the organism patient can be switched to flagyl 500 mg tid for another 7 days and augmentin 875 mg po bid for another 7 days d/w lab about the microbiology
--- NOTE | 2019-01-19 09:22 | PN ---
Progress Note, Physician Chief Complaint: Pain better History of Present Illness: S/P I+D of thee anal abscess - Current Medication List Current Medications: Active Medications Acetaminophen (Tylenol -) 650 mg PO Q4H PRN PRN Reason: FEVER Last Admin: 01/16/19 11:48 Dose: 650 mg Amlodipine Besylate (Norvasc -) 5 mg PO DAILY [facility] Last Admin: 01/18/19 09:41 Dose: 5 mg Glipizide (Glucotrol -) 5 mg PO DAILY@0700 [facility] Last Admin: 01/19/19 06:32 Dose: 5 mg Vancomycin HCl (Vancomycin (Pre-Docked)) 1,000 mg in 250 mls @ 166.667 mls/hr IVPB BID@0000,1200 [facility]; Protocol Last Admin: 01/18/19 23:20 Dose: 166.667 mls/hr Piperacillin Sod/Tazobactam (Sod 4.5 gm/ Dextrose) 100 mls @ 200 mls/hr IVPB TID [facility]; Protocol Last Admin: 01/19/19 06:16 Dose: 200 mls/hr Insulin Aspart (Novolog Vial Sliding Scale -) 1 vial SQ ACHS [facility]; Protocol Last Admin: 01/19/19 06:32 Dose: 8 units Ondansetron HCl (Zofran Injection) 4 mg IVPUSH Q6H PRN PRN Reason: NAUSEA AND/OR VOMITING Promethazine HCl (Phenergan Injection -) 12.5 mg IVPUSH Q6H PRN PRN Reason: NAUSEA-FOR RESCUE AFTER 15 MIN Ramipril (Altace -) 5 mg PO DAILY [facility] Last Admin: 01/18/19 09:41 Dose: 5 mg Sitagliptin Phosphate (Januvia -) 100 mg PO DAILY@0700 [facility] Last Admin: 01/19/19 06:32 Dose: 100 mg Sodium Hypochlorite (Dakin's Solution 0.25% (Half-Strength) -) 1 applic TP BID [facility] Last Admin: 01/18/19 21:08 Dose: 1 applic - Objective Vital Signs: Vital Signs Temperature 97.9 F 01/19/19 05:55 Pulse Rate 69 01/19/19 05:55 Respiratory Rate 18 01/19/19 05:55 Blood Pressure 126/66 01/19/19 05:55 O2 Sat by Pulse Oximetry (%) 97 01/18/19 09:00 Constitutional: Yes: No Distress Eyes: Yes: WNL HENT: Yes: WNL Neck: Yes: WNL Cardiovascular: Yes: WNL Respiratory: Yes: WNL Gastrointestinal: Yes: WNL ...Rectal Exam: Yes: WNL, Deferred Genitourinary: Yes: WNL Wound/Incision: Yes: Clean/Dry ...Motor Strength: WNL Psychiatric: Yes: Alert Labs: CBC, BMP 01/19/19 07:15 01/19/19 07:15 INR, PTT INR 1.46 (0.83-1.09) H 01/11/19 12:45 Assessment/Plan Wound culture report pending Continue same trt
[2019-01-19] MEDS: RAMIPRIL 5 MG CAPSULE (FP) PO SCH (10:17)
[2019-01-19] MEDS: SODIUM HYPOCHLORITE 0.25%- 473 ML BULK BOTTLE TP SCH ×2 (10:17→22:06)
[2019-01-19] MEDS: amLODIPine BESYLATE 5 MG TABLET (FP) PO SCH (10:17)
[2019-01-19] MEDS: VANCOMYCIN 1 GRAM (PRE-DOCKED) 1,000 MG/250 ML BAG IVPB SCH (12:35)
--- NOTE | 2019-01-19 18:52 | PN ---
Progress Note, Physician - Current Medication List Current Medications: Active Medications Acetaminophen (Tylenol -) 650 mg PO Q4H PRN PRN Reason: FEVER Last Admin: 01/16/19 11:48 Dose: 650 mg Amlodipine Besylate (Norvasc -) 5 mg PO DAILY [facility] Last Admin: 01/19/19 10:17 Dose: 5 mg Glipizide (Glucotrol -) 5 mg PO DAILY@0700 [facility] Last Admin: 01/19/19 06:32 Dose: 5 mg Vancomycin HCl (Vancomycin (Pre-Docked)) 1,000 mg in 250 mls @ 166.667 mls/hr IVPB BID@0000,1200 [facility]; Protocol Last Admin: 01/19/19 12:35 Dose: 166.667 mls/hr Piperacillin Sod/Tazobactam (Sod 4.5 gm/ Dextrose) 100 mls @ 200 mls/hr IVPB TID [facility]; Protocol Last Admin: 01/19/19 15:42 Dose: 200 mls/hr Insulin Aspart (Novolog Vial Sliding Scale -) 1 vial SQ ACHS [facility]; Protocol Last Admin: 01/19/19 17:11 Dose: 8 units Ondansetron HCl (Zofran Injection) 4 mg IVPUSH Q6H PRN PRN Reason: NAUSEA AND/OR VOMITING Promethazine HCl (Phenergan Injection -) 12.5 mg IVPUSH Q6H PRN PRN Reason: NAUSEA-FOR RESCUE AFTER 15 MIN Ramipril (Altace -) 5 mg PO DAILY [facility] Last Admin: 01/19/19 10:17 Dose: 5 mg Sitagliptin Phosphate (Januvia -) 100 mg PO DAILY@0700 [facility] Last Admin: 01/19/19 06:32 Dose: 100 mg Sodium Hypochlorite (Dakin's Solution 0.25% (Half-Strength) -) 1 applic TP BID [facility] Last Admin: 01/19/19 10:17 Dose: 1 applic - Objective Vital Signs: Vital Signs Temperature 99.3 F 01/19/19 14:00 Pulse Rate 77 01/19/19 14:00 Respiratory Rate 18 01/19/19 14:00 Blood Pressure 114/63 01/19/19 14:00 O2 Sat by Pulse Oximetry (%) 97 01/18/19 09:00 Labs: CBC, BMP 01/19/19 07:15 01/19/19 07:15 INR, PTT INR 1.46 (0.83-1.09) H 01/11/19 12:45 Problem List - Problems (1) Abscess of right buttock Code(s): L02.31 - CUTANEOUS ABSCESS OF BUTTOCK (2) Diabetes Code(s): E11.9 - TYPE 2 DIABETES MELLITUS WITHOUT COMPLICATIONS Qualifiers: Diabetes mellitus type: type 2 Qualified Code(s): E11.22 - Type 2 diabetes mellitus with diabetic chronic kidney disease (3) Hypertension Code(s): I10 - ESSENTIAL (PRIMARY) HYPERTENSION Assessment/Plan Cultures still pending. Wound is granulating. WBC is normal. Afebrile. Antibiotics changed. Can be discharged , with wound management.
[2019-01-20] MEDS: glipiZIDE 5 MG TABLET (FP) PO SCH (06:24)
[2019-01-20] MEDS: INSULIN SLIDING SCALE (NOVOLOG) 1 VIAL SQ SCH ×4 (06:24→21:54)
[2019-01-20] MEDS: sitaGLIPtin PHOSPHATE 50 MG TABLET PO SCH (06:24)
--- NOTE | 2019-01-20 09:27 | PN ---
Progress Note, Physician Chief Complaint: Feels better History of Present Illness: S/P thee rectal abscess drainage - Current Medication List Current Medications: Active Medications Acetaminophen (Tylenol -) 650 mg PO Q4H PRN PRN Reason: FEVER Last Admin: 01/16/19 11:48 Dose: 650 mg Amlodipine Besylate (Norvasc -) 5 mg PO DAILY [facility] Last Admin: 01/19/19 10:17 Dose: 5 mg Glipizide (Glucotrol -) 5 mg PO DAILY@0700 [facility] Last Admin: 01/20/19 06:24 Dose: 5 mg Insulin Aspart (Novolog Vial Sliding Scale -) 1 vial SQ ACHS [facility]; Protocol Last Admin: 01/20/19 06:24 Dose: 6 units Ondansetron HCl (Zofran Injection) 4 mg IVPUSH Q6H PRN PRN Reason: NAUSEA AND/OR VOMITING Promethazine HCl (Phenergan Injection -) 12.5 mg IVPUSH Q6H PRN PRN Reason: NAUSEA-FOR RESCUE AFTER 15 MIN Ramipril (Altace -) 5 mg PO DAILY [facility] Last Admin: 01/19/19 10:17 Dose: 5 mg Sitagliptin Phosphate (Januvia -) 100 mg PO DAILY@0700 [facility] Last Admin: 01/20/19 06:24 Dose: 100 mg Sodium Hypochlorite (Dakin's Solution 0.25% (Half-Strength) -) 1 applic TP BID [facility] Last Admin: 01/19/19 22:06 Dose: 1 applic - Objective Vital Signs: Vital Signs Temperature 97.9 F 01/20/19 06:00 Pulse Rate 74 01/20/19 06:00 Respiratory Rate 18 01/20/19 06:00 Blood Pressure 146/80 01/20/19 06:00 O2 Sat by Pulse Oximetry (%) 97 01/18/19 09:00 Constitutional: Yes: No Distress Eyes: Yes: WNL HENT: Yes: WNL Neck: Yes: WNL Cardiovascular: Yes: WNL Respiratory: Yes: WNL Gastrointestinal: Yes: Normal Bowel Sounds ...Rectal Exam: Yes: Deferred Wound/Incision: Yes: Clean/Dry Neurological: Yes: Alert Psychiatric: Yes: Alert (start po augmentin) Labs: CBC, BMP 01/19/19 07:15 01/19/19 07:15 INR, PTT INR 1.46 (0.83-1.09) H 01/11/19 12:45
[2019-01-20] MEDS: SODIUM HYPOCHLORITE 0.25%- 473 ML BULK BOTTLE TP SCH ×2 (10:27→21:53)
[2019-01-20] MEDS: amLODIPine BESYLATE 5 MG TABLET (FP) PO SCH (10:33)
[2019-01-20] MEDS: RAMIPRIL 5 MG CAPSULE (FP) PO SCH (10:33)
--- NOTE | 2019-01-20 12:52 | PN ---
Progress Note, Physician History of Present Illness: stable no new issues - Current Medication List Current Medications: Active Medications Acetaminophen (Tylenol -) 650 mg PO Q4H PRN PRN Reason: FEVER Last Admin: 01/16/19 11:48 Dose: 650 mg Amlodipine Besylate (Norvasc -) 5 mg PO DAILY [facility] Last Admin: 01/20/19 10:33 Dose: 5 mg Amoxicillin/Clavulanate Potassium (Augmentin - 875mg Tablet) 1 tab PO BID@0800, 1730 [facility] Glipizide (Glucotrol -) 5 mg PO DAILY@0700 [facility] Last Admin: 01/20/19 06:24 Dose: 5 mg Insulin Aspart (Novolog Vial Sliding Scale -) 1 vial SQ ACHS [facility]; Protocol Last Admin: 01/20/19 12:11 Dose: 4 units Ondansetron HCl (Zofran Injection) 4 mg IVPUSH Q6H PRN PRN Reason: NAUSEA AND/OR VOMITING Promethazine HCl (Phenergan Injection -) 12.5 mg IVPUSH Q6H PRN PRN Reason: NAUSEA-FOR RESCUE AFTER 15 MIN Ramipril (Altace -) 5 mg PO DAILY [facility] Last Admin: 01/20/19 10:33 Dose: 5 mg Sitagliptin Phosphate (Januvia -) 100 mg PO DAILY@0700 [facility] Last Admin: 01/20/19 06:24 Dose: 100 mg Sodium Hypochlorite (Dakin's Solution 0.25% (Half-Strength) -) 1 applic TP BID [facility] Last Admin: 01/19/19 22:06 Dose: 1 applic - Objective Vital Signs: Vital Signs Temperature 98.0 F 01/20/19 10:00 Pulse Rate 75 01/20/19 10:00 Respiratory Rate 18 01/20/19 09:00 Blood Pressure 144/83 01/20/19 10:00 O2 Sat by Pulse Oximetry (%) 97 01/18/19 09:00 Constitutional: Yes: No Distress, Calm Cardiovascular: Yes: S1, S2 Respiratory: Yes: Regular, CTA Bilaterally Gastrointestinal: Yes: Normal Bowel Sounds, Soft Musculoskeletal: Yes: WNL Extremities: Yes: WNL Wound/Incision: Yes: Dressing Dry and Intact Neurological: Yes: Alert, Oriented Psychiatric: Yes: Alert, Oriented Labs: CBC, BMP 01/19/19 07:15 01/19/19 07:15 INR, PTT INR 1.46 (0.83-1.09) H 01/11/19 12:45 Assessment/Plan colemanm List - Problems (1) Diabetes Code(s): E11.9 - TYPE 2 DIABETES MELLITUS WITHOUT COMPLICATIONS (2) Hyperlipemia Code(s): E78.5 - HYPERLIPIDEMIA, UNSPECIFIED (3) Hypertension Code(s): I10 - ESSENTIAL (PRIMARY) HYPERTENSION Assessment/Plan Rt buttock abscess r/o perirectal/perianal abscess Sepsis Fever Leukoyctosis DM HTN HLD necrotizing fascitis plan continue current mgmt patient doing well
[2019-01-20] MEDS: AMOX TR/POT CLAV 875MG/125MG TABLETS (FP) PO SCH (17:14)
[2019-01-20] MEDS ORDERED: INSULIN (NOVOLOG) ASPART 100 UNITS/ML 10ML VIAL SQ ONE (22:15)
[2019-01-21] MEDS: sitaGLIPtin PHOSPHATE 50 MG TABLET PO SCH (06:15)
[2019-01-21] MEDS: glipiZIDE 5 MG TABLET (FP) PO SCH (06:16)
[2019-01-21] MEDS: INSULIN SLIDING SCALE (NOVOLOG) 1 VIAL SQ SCH ×2 (06:16→12:30)
[2019-01-21] MEDS: AMOX TR/POT CLAV 875MG/125MG TABLETS (FP) PO SCH (08:53)
--- NOTE | 2019-01-21 09:50 | DS ---
Physical Examination Vital Signs: Vital Signs Temperature 98.1 F 01/21/19 06:05 Pulse Rate 70 01/21/19 06:05 Respiratory Rate 20 01/21/19 06:05 Blood Pressure 143/74 01/21/19 06:05 O2 Sat by Pulse Oximetry (%) 97 01/18/19 09:00 Findings/Remarks: Diabetic admitted with buttock abscess I+D done treated with IV antibiotics ,improved Blood sugar this AM 217 Constitutional: Yes: No Distress Eyes: Yes: WNL HENT: Yes: WNL Neck: Yes: WNL Cardiovascular: Yes: WNL Respiratory: Yes: WNL Gastrointestinal: Yes: WNL ...Rectal Exam: Yes: Deferred Extremities: Yes: WNL Wound/Incision: Yes: Clean/Dry Neurological: Yes: Alert Labs: CBC, BMP 01/19/19 07:15 01/19/19 07:15 Discharge Summary Reason For Visit: SEPSIS/ABCESS & CELLULITIS OF RIGHT BUTTOCK Current Active Problems Abscess of right buttock (Acute) Cellulitis (Acute) Condition: Guarded - Instructions - Home Medications Comprehensive Discharge Medication List: Ambulatory Orders Amlodipine Besylate 10 mg PO DAILY 11/24/15 Aspirin [Ecotrin] 81 mg PO DAILY 11/24/15 Gabapentin [Neurontin -] 300 mg PO DAILY 11/24/15 Lisinopril [Prinivil] 20 mg PO DAILY 11/24/15 Simvastatin [Zocor -] 20 mg PO DAILY 11/24/15 Sitagliptin Phos/Metformin HCl [Janumet 50-500 mg Tablet] 500 mg PO BIDAC
[2019-01-21] MEDS ORDERED: GABAPENTIN 300 MG CAPSULE (FP) PO SCH (10:00)
[2019-01-21] MEDS: amLODIPine BESYLATE 5 MG TABLET (FP) PO SCH (10:05)
[2019-01-21] MEDS: RAMIPRIL 5 MG CAPSULE (FP) PO SCH (10:05)
[2019-01-21] MEDS: SODIUM HYPOCHLORITE 0.25%- 473 ML BULK BOTTLE TP SCH (10:06)
[2019-01-21 12:00] VITALS: BP 129/69; PULSE 71; TEMP 97.8
--- NOTE | 2019-01-21 12:23 | PN ---
Progress Note, Physician History of Present Illness: stable no new issues - Current Medication List Current Medications: Active Medications Acetaminophen (Tylenol -) 650 mg PO Q4H PRN PRN Reason: FEVER Last Admin: 01/16/19 11:48 Dose: 650 mg Amlodipine Besylate (Norvasc -) 5 mg PO DAILY [facility] Last Admin: 01/21/19 10:05 Dose: 5 mg Amoxicillin/Clavulanate Potassium (Augmentin - 875mg Tablet) 1 tab PO BID@0800, 1730 [facility] Last Admin: 01/21/19 08:53 Dose: 1 tab Gabapentin (Neurontin -) 300 mg PO DAILY [facility] Last Admin: 01/21/19 10:05 Dose: 300 mg Glipizide (Glucotrol -) 5 mg PO DAILY@0700 [facility] Last Admin: 01/21/19 06:16 Dose: 5 mg Insulin Aspart (Novolog Vial Sliding Scale -) 1 vial SQ ACHS [facility]; Protocol Last Admin: 01/21/19 06:16 Dose: 6 units Ondansetron HCl (Zofran Injection) 4 mg IVPUSH Q6H PRN PRN Reason: NAUSEA AND/OR VOMITING Promethazine HCl (Phenergan Injection -) 12.5 mg IVPUSH Q6H PRN PRN Reason: NAUSEA-FOR RESCUE AFTER 15 MIN Ramipril (Altace -) 5 mg PO DAILY [facility] Last Admin: 01/21/19 10:05 Dose: 5 mg Sitagliptin Phosphate (Januvia -) 100 mg PO DAILY@0700 [facility] Last Admin: 01/21/19 06:15 Dose: 100 mg Sodium Hypochlorite (Dakin's Solution 0.25% (Half-Strength) -) 1 applic TP BID [facility] Last Admin: 01/21/19 10:06 Dose: Not Given - Objective Vital Signs: Vital Signs Temperature 97.8 F 01/21/19 10:00 Pulse Rate 71 01/21/19 10:00 Respiratory Rate 20 01/21/19 10:00 Blood Pressure 129/69 01/21/19 10:00 O2 Sat by Pulse Oximetry (%) 97 01/18/19 09:00 Constitutional: Yes: No Distress, Calm Cardiovascular: Yes: Regular Rate and Rhythm Respiratory: Yes: Regular, CTA Bilaterally Gastrointestinal: Yes: Normal Bowel Sounds, Soft Musculoskeletal: Yes: WNL Extremities: Yes: WNL Wound/Incision: Yes: Dressing Dry and Intact Neurological: Yes: Alert, Oriented Psychiatric: Yes: Alert, Oriented Labs: CBC, BMP 01/19/19 07:15 01/19/19 07:15 INR, PTT INR 1.46 (0.83-1.09) H 01/11/19 12:45 Assessment/Plan roblem List - Problems (1) Diabetes Code(s): E11.9 - TYPE 2 DIABETES MELLITUS WITHOUT COMPLICATIONS (2) Hyperlipemia Code(s): E78.5 - HYPERLIPIDEMIA, UNSPECIFIED (3) Hypertension Code(s): I10 - ESSENTIAL (PRIMARY) HYPERTENSION Assessment/Plan Rt buttock abscess r/o perirectal/perianal abscess Sepsis Fever Leukoyctosis DM HTN HLD necrotizing fascitis plan continue current mgmt patient doing well complete the abx course
== END 2019-01-21 13:44 | disposition home or self-care (01) | DRG 720 ==
LOC: JER 10:43 → JERBED 13:04 → J5S 17:23
PROVIDERS: ADMIT Internal Medicine; ATTEND Internal Medicine
PROC: 0J990ZX Drainage of Buttock Subcutaneous Tissue and Fascia, Open Approach, Diagnostic (ICD-10-PCS; 2019-01-12)
PROC: 3E10X8Z Irrigation of Skin and Mucous Membranes using Irrigating Substance (ICD-10-PCS; 2019-01-12)
PROC: 0JB70ZZ Excision of Back Subcutaneous Tissue and Fascia, Open Approach (ICD-10-PCS; 2019-01-12)
PROC: 0JB90ZZ Excision of Buttock Subcutaneous Tissue and Fascia, Open Approach (ICD-10-PCS; principal; 2019-01-12 19:00)
DX: A41.89 Other specified sepsis (principal); A48.0 Gas gangrene; L02.31 Cutaneous abscess of buttock; I10 Essential (primary) hypertension; E78.5 Hyperlipidemia, unspecified; R00.0 Tachycardia, unspecified; D72.829 Elevated white blood cell count, unspecified; K61.0 Anal abscess; E11.52 Type 2 diabetes mellitus with diabetic peripheral angiopathy with gangrene; R50.9 Fever, unspecified
CPT/HCPCS: 36415; 71045-TC-FY; 74177-TC; 80048; 80053; 81003; 82962; 83036; 83605; 84484; 85025; 85610; 85730; 86850; 86900; 86901; 87040; 87070; 87076; 87086; 87205; 88304-TC; 90670; 93005; 93010; 94760; 99283-25; G0480; J0131; J2175; J7030

== ENCOUNTER 2020-05-28 12:08 | Inpatient (IN) | payer OTHER ==
[2020-05-28] MEDS ORDERED: VANCOMYCIN 1 GM in D5W (PRE-DOCKED) 1,000 MG/250 ML IVPB ONE (12:55)
[2020-05-28] MEDS ORDERED: PIPERACILLIN/TAZOB 3.375 GM 3.375 GM in DEXTROSE 5%-WATER - 50 ML IVPB ONE (12:55)
[2020-05-28] MEDS ORDERED: ACETAMINOPHEN 1000 MG/100 ML VIAL (NON FORMULARY) IVPB ONE (13:22)
[2020-05-28] MEDS ORDERED: LACTATED RINGERS SOLUTION 1000 ML INFUS.BAG IV ONE ×2 (13:22→17:04)
[2020-05-28] MEDS ORDERED: ACETAMINOPHEN INJECTION 100 ML IVPB ONE (13:24)
[2020-05-28] MEDS ORDERED: VANCOMYCIN 1 GRAM (PRE-DOCKED) 1,000 MG/250 ML BAG IVPB ONE (13:25)
[2020-05-28 13:31] LABS: BASO % 0.3 % (0-2.0); HEMATOCRIT 38.4 % (35.4-49); HEMOGLOBIN 12.9 GM/dL (11.7-16.9); LYMPH % 4.2 % (8-40); MCH 31.8 pg (25.7-33.7); MCHC 33.6 g/dl (32.0-35.9); MEAN CELL VOLUME 94.6 fl (80-96); MEAN PLT VOLUME 8.1 fl (7.5-11.1); MONO % 8.1 % (3.8-10.2); NEUT % 87.4 % (42.8-82.8); PLATELET COUNT 372 K/MM3 (134-434); RBC 4.06 M/mm3 (4.00-5.60); RDW 12.6 % (11.9-15.9); WHITE BLOOD COUNT 19.5 K/mm3 (4.0-10.0)
[2020-05-28 13:40] LABS: INR 1.36 (0.83-1.09); PROTHROMBIN TIME (PATIENT) 16.6 SEC (9.7-13.0)
[2020-05-28 13:43] LABS: ACTIVATED PTT 25.8 SECONDS (25.2-36.5)
[2020-05-28 13:50] LABS: ALBUMIN 2.8 g/dl (3.4-5.0); BLOOD UREA NITROGEN 21.1 mg/dL (7-18)
[2020-05-28 13:53] LABS: CREATININE 1.3 mg/dL (0.55-1.3)
[2020-05-28 13:55] LABS: BILIRUBIN,TOTAL 1.4 mg/dL (0.2-1); TOT PROT 7.6 g/dl (6.4-8.2)
[2020-05-28 14:04] LABS: POTASSIUM 7.6 mmol/L (3.5-5.1)
[2020-05-28 14:53] LABS: POTASSIUM 4.6 mmol/L (3.5-5.1)
[2020-05-28 14:55] LABS: ALBUMIN 2.4 g/dl (3.4-5.0); BLOOD UREA NITROGEN 20.3 mg/dL (7-18); CALCIUM 8.5 mg/dL (8.5-10.1)
[2020-05-28 14:59] LABS: CREATININE 1.1 mg/dL (0.55-1.3)
[2020-05-28 15:00] LABS: BILIRUBIN,TOTAL 0.9 mg/dL (0.2-1)
[2020-05-28] MEDS ORDERED: IBUPROFEN 400 MG TABLET (FP) PO ONE ×2 (15:50→15:56)
[2020-05-28] MEDS ORDERED: SODIUM CHLORIDE 500 ML IV STA (16:03)
[2020-05-28] MEDS ORDERED: ENOXAPARIN NA (PORCINE) 40 MG/0.4 ML DISP.SYRIN SQ ONE (16:44)
[2020-05-28] MEDS ORDERED: ENOXAPARIN NA (PORCINE) 40 MG/0.4 ML DISP.SYRIN SQ SCH (16:45)
[2020-05-28] MEDS ORDERED: SODIUM CHLORIDE 1,000 ML IV SCH (16:45)
[2020-05-28] MEDS ORDERED: CEFEPIME HCL/D5W 1 GM/50 ML BAG IVPB SCH (18:00)
[2020-05-28] MEDS ORDERED: PIPERACILLIN/TAZOB 3.375 GM 3.375 GM in DEXTROSE 5%-WATER - 50 ML IVPB SCH (18:00)
[2020-05-28] MEDS ORDERED: PIPERACILLIN/TAZOB 3.375 GM 3.375 GM/50 ML BAG IVPB ONE (18:23)
[2020-05-28 20:15] LABS: MAGNESIUM 1.8 mg/dL (1.8-2.4)
[2020-05-28 20:19] LABS: PHOSPHOROUS 3.8 mg/dL (2.5-4.9)
[2020-05-28] MEDS: INSULIN SLIDING SCALE (NOVOLOG) 1 VIAL SQ SCH (20:27)
[2020-05-28] MEDS ORDERED: CLINDAMYCIN 600MG PREMIX IVPB 600 MG/50 ML BAG IVPB SCH (22:00)
[2020-05-28] MEDS: CLINDAMYCIN 900 MG PREMIX IVPB 900 MG/50 ML BAG IVPB SCH (23:38)
[2020-05-28] MEDS: ACETAMINOPHEN 325 MG TABLET (FP) PO PRN (23:44)
[2020-05-29] MEDS ORDERED: VANCOMYCIN 1 GRAM (PRE-DOCKED) 1 GM/200 ML BAG IVPB SCH (01:30)
[2020-05-29] MEDS ORDERED: PIPERACILLIN/TAZOBACTAM 3.375 GM VIAL IVPB ONE ×3 (01:56→17:49)
[2020-05-29] MEDS ORDERED: DEXTROSE 5%-WATER - 50 ML IVPB ONE ×3 (01:57→17:49)
[2020-05-29] MEDS: PIPERACILLIN/TAZOB 3.375 GM 3.375 GM in DEXTROSE 5%-WATER - 50 ML IVPB SCH ×3 (02:45→18:16)
[2020-05-29 03:04] VITALS: BMI 24.0
[2020-05-29] MEDS: VANCOMYCIN 1 GRAM (PRE-DOCKED) 1 GM/200 ML BAG IVPB SCH ×2 (03:29→17:11)
[2020-05-29] MEDS: CLINDAMYCIN 900 MG PREMIX IVPB 900 MG/50 ML BAG IVPB SCH ×3 (03:29→18:16)
[2020-05-29] MEDS: INSULIN SLIDING SCALE (NOVOLOG) 1 VIAL SQ SCH ×3 (06:40→18:19)
[2020-05-29] MEDS ORDERED: INSULIN (LEVEMIR) 100 UNITS/ML UNITS SQ SCH ×2 (07:00→14:44)
[2020-05-29 08:34] LABS: BASO % 0.4 % (0-2.0); HEMATOCRIT 31.9 % (35.4-49); HEMOGLOBIN 10.8 GM/dL (11.7-16.9); LYMPH % 7.2 % (8-40); MCH 31.9 pg (25.7-33.7); MEAN CELL VOLUME 93.9 fl (80-96); MONO % 9.9 % (3.8-10.2); NEUT % 81.5 % (42.8-82.8); PLATELET COUNT 336 K/MM3 (134-434); RBC 3.39 M/mm3 (4.00-5.60); RDW 12.2 % (11.9-15.9); WHITE BLOOD COUNT 15.4 K/mm3 (4.0-10.0)
[2020-05-29 09:03] LABS: POTASSIUM 4.6 mmol/L (3.5-5.1)
[2020-05-29 09:12] LABS: CALCIUM 8.1 mg/dL (8.5-10.1)
[2020-05-29 09:13] LABS: ALBUMIN 2.3 g/dl (3.4-5.0); BLOOD UREA NITROGEN 17.7 mg/dL (7-18); MAGNESIUM 1.9 mg/dL (1.8-2.4)
[2020-05-29 09:16] LABS: CREATININE 0.9 mg/dL (0.55-1.3)
[2020-05-29 09:17] LABS: BILIRUBIN,TOTAL 0.9 mg/dL (0.2-1); TOT PROT 5.7 g/dl (6.4-8.2)
[2020-05-29] MEDS ORDERED: PATIENT'S OWN MEDICATION (NON-FORMULARY) (Insulin Glargine,Hum.Rec.Anlog [Lantus] 100 UNIT SQ SCH (10:00)
[2020-05-29] MEDS ORDERED: amLODIPine BESYLATE 10 MG TABLET (FP) PO SCH (10:00)
[2020-05-29] MEDS ORDERED: LISINOPRIL 10 MG TABLET PO SCH (10:00)
[2020-05-29] MEDS ORDERED: ASPIRIN COATED 81 MG TABLET.EC PO SCH (10:00)
[2020-05-29] MEDS: GABAPENTIN 300 MG CAPSULE PO SCH (10:47)
[2020-05-29 12:02] LABS: INR 1.45 (0.83-1.09); PROTHROMBIN TIME (PATIENT) 17.3 SEC (9.7-13.0)
[2020-05-29] MEDS: ACETAMINOPHEN 325 MG TABLET (FP) PO PRN ×2 (14:22→18:55)
[2020-05-29] MEDS ORDERED: VANCOMYCIN 1 GRAM (PRE-DOCKED) 1,000 MG/250 ML BAG IVPB SCH (14:34)
[2020-05-29] MEDS: VANCOMYCIN 1 GRAM (PRE-DOCKED) 1,000 MG/250 ML BAG IVPB SCH (15:10)
[2020-05-29] MEDS: SODIUM CHLORIDE 1,000 ML IV SCH ×2 (17:12→20:43)
[2020-05-29] MEDS ORDERED: SODIUM CHLORIDE 1,000 ML IV SCH (21:34)
[2020-05-30] MEDS ORDERED: PIPERACILLIN/TAZOBACTAM 3.375 GM VIAL IVPB ONE ×2 (00:34→18:10)
[2020-05-30] MEDS ORDERED: DEXTROSE 5%-WATER - 50 ML IVPB ONE ×2 (00:34→18:10)
[2020-05-30] MEDS: PIPERACILLIN/TAZOB 3.375 GM 3.375 GM in DEXTROSE 5%-WATER - 50 ML IVPB SCH ×3 (01:11→18:46)
[2020-05-30] MEDS ORDERED: VANCOMYCIN 1 GRAM (PRE-DOCKED) 1 GM/200 ML BAG IVPB SCH (01:30)
[2020-05-30] MEDS: VANCOMYCIN 1 GRAM (PRE-DOCKED) 1,000 MG/250 ML BAG IVPB SCH ×2 (01:54→14:30)
[2020-05-30] MEDS: CLINDAMYCIN 900 MG PREMIX IVPB 900 MG/50 ML BAG IVPB SCH ×3 (02:39→18:46)
[2020-05-30] MEDS ORDERED: INSULIN (NOVOLOG) ASPART 100 UNITS/ML 10ML VIAL ONE (05:07)
[2020-05-30] MEDS: INSULIN SLIDING SCALE (NOVOLOG) 1 VIAL SQ SCH ×3 (07:00→18:55)
[2020-05-30 08:39] LABS: BASO % 0.7 % (0-2.0); EOS % 0.3 % (0-4.5); HEMATOCRIT 32.4 % (35.4-49); HEMOGLOBIN 10.6 GM/dL (11.7-16.9); LYMPH % 6.8 % (8-40); MCH 31.4 pg (25.7-33.7); MCHC 32.7 g/dl (32.0-35.9); MEAN PLT VOLUME 8.3 fl (7.5-11.1); MONO % 8.9 % (3.8-10.2); NEUT % 83.3 % (42.8-82.8); PLATELET COUNT 343 K/MM3 (134-434); RBC 3.37 M/mm3 (4.00-5.60); RDW 12.7 % (11.9-15.9); WHITE BLOOD COUNT 18.2 K/mm3 (4.0-10.0)
[2020-05-30 08:56] LABS: POTASSIUM 4.6 mmol/L (3.5-5.1)
[2020-05-30 08:59] LABS: ALBUMIN 2.1 g/dl (3.4-5.0); CALCIUM 7.9 mg/dL (8.5-10.1)
[2020-05-30 09:01] LABS: BLOOD UREA NITROGEN 13.9 mg/dL (7-18)
[2020-05-30 09:04] LABS: CREATININE 0.9 mg/dL (0.55-1.3)
[2020-05-30 09:05] LABS: BILIRUBIN,TOTAL 1.6 mg/dL (0.2-1); TOT PROT 5.7 g/dl (6.4-8.2)
[2020-05-30] MEDS ORDERED: VANCOMYCIN 1,000 MG VIAL (RESTRICTED TO ID ONLY) ONE (10:13)
[2020-05-30] MEDS ORDERED: PROPOFOL 20 ML ONE ×2 (10:29→11:05)
[2020-05-30] MEDS ORDERED: MIDAZOLAM HCL 2 MG/2 ML SINGLE DOSE VIAL ONE (10:30)
[2020-05-30] MEDS ORDERED: LIDOCAINE HCL 1%, 10 MG/ML (20ML VIAL) INF ONE ×2 (11:20→11:44)
[2020-05-30] MEDS ORDERED: BACITRACIN 50,000 UNITS VIAL TP ONE (11:20)
[2020-05-30] MEDS ORDERED: BUPIVACAINE HCL/PF 0.5% (5 MG/ML) 30 ML VIAL IJ ONE ×2 (11:20→11:45)
[2020-05-30] MEDS: GABAPENTIN 300 MG CAPSULE PO SCH (12:16)
[2020-05-30 14:06] LABS: BASO % 0.4 % (0-2.0); EOS % 0.4 % (0-4.5); HEMOGLOBIN 11.6 GM/dL (11.7-16.9); LYMPH % 9.7 % (8-40); MEAN CELL VOLUME 94.1 fl (80-96); MEAN PLT VOLUME 7.6 fl (7.5-11.1); MONO % 8.1 % (3.8-10.2); NEUT % 81.4 % (42.8-82.8); PLATELET COUNT 366 K/MM3 (134-434); RBC 3.72 M/mm3 (4.00-5.60); RDW 12.5 % (11.9-15.9); WHITE BLOOD COUNT 19.3 K/mm3 (4.0-10.0)
[2020-05-30] MEDS: ACETAMINOPHEN 325 MG TABLET (FP) PO PRN (14:59)
[2020-05-30] MEDS: oxyCODONE HCL 5 MG TABLET PO PRN (18:44)
[2020-05-30] MEDS: SODIUM CHLORIDE 1,000 ML IV SCH (18:46)
[2020-05-31] MEDS: PIPERACILLIN/TAZOB 3.375 GM 3.375 GM in DEXTROSE 5%-WATER - 50 ML IVPB SCH ×3 (01:30→18:01)
[2020-05-31] MEDS ORDERED: DEXTROSE 5%-WATER - 50 ML IVPB ONE ×3 (01:52→17:59)
[2020-05-31] MEDS ORDERED: PIPERACILLIN/TAZOBACTAM 3.375 GM VIAL IVPB ONE ×3 (01:52→17:58)
[2020-05-31] MEDS: VANCOMYCIN 1 GRAM (PRE-DOCKED) 1,000 MG/250 ML BAG IVPB SCH ×2 (01:59→13:16)
[2020-05-31] MEDS: CLINDAMYCIN 900 MG PREMIX IVPB 900 MG/50 ML BAG IVPB SCH ×2 (03:01→10:00)
[2020-05-31] MEDS: ACETAMINOPHEN 325 MG TABLET (FP) PO PRN (03:02)
[2020-05-31] MEDS: INSULIN SLIDING SCALE (NOVOLOG) 1 VIAL SQ SCH ×3 (06:58→17:18)
[2020-05-31] MEDS: INSULIN (LEVEMIR) 100 UNITS/ML UNITS SQ SCH (06:59)
[2020-05-31] MEDS: GABAPENTIN 300 MG CAPSULE PO SCH (10:00)
[2020-05-31 10:56] LABS: BASO % 0.4 % (0-2.0); EOS % 1.1 % (0-4.5); HEMATOCRIT 31.9 % (35.4-49); HEMOGLOBIN 10.5 GM/dL (11.7-16.9); LYMPH % 8.2 % (8-40); MCH 31.4 pg (25.7-33.7); MCHC 32.9 g/dl (32.0-35.9); MEAN CELL VOLUME 95.6 fl (80-96); MEAN PLT VOLUME 7.8 fl (7.5-11.1); MONO % 8.1 % (3.8-10.2); NEUT % 82.2 % (42.8-82.8); PLATELET COUNT 365 K/MM3 (134-434); RBC 3.34 M/mm3 (4.00-5.60); RDW 12.6 % (11.9-15.9); WHITE BLOOD COUNT 15.4 K/mm3 (4.0-10.0)
[2020-05-31 11:14] LABS: POTASSIUM 4.3 mmol/L (3.5-5.1)
[2020-05-31 11:17] LABS: ALBUMIN 1.9 g/dl (3.4-5.0); BLOOD UREA NITROGEN 10.9 mg/dL (7-18); CALCIUM 8.2 mg/dL (8.5-10.1)
[2020-05-31 11:20] LABS: CREATININE 0.8 mg/dL (0.55-1.3)
[2020-05-31 11:22] LABS: BILIRUBIN,TOTAL 1.4 mg/dL (0.2-1); TOT PROT 5.6 g/dl (6.4-8.2)
[2020-05-31] MEDS: oxyCODONE HCL 5 MG TABLET PO PRN (17:15)
[2020-05-31] MEDS: glipiZIDE 5 MG TABLET (FP) PO SCH (17:15)
[2020-05-31] MEDS: SODIUM CHLORIDE 1,000 ML IV SCH (18:11)
[2020-06-01] MEDS: VANCOMYCIN 1 GRAM (PRE-DOCKED) 1,000 MG/250 ML BAG IVPB SCH ×2 (00:31→13:29)
[2020-06-01] MEDS ORDERED: DEXTROSE 5%-WATER - 50 ML IVPB ONE ×3 (02:55→17:00)
[2020-06-01] MEDS ORDERED: PIPERACILLIN/TAZOBACTAM 3.375 GM VIAL IVPB ONE ×3 (02:55→17:00)
[2020-06-01] MEDS: oxyCODONE HCL 5 MG TABLET PO PRN (03:02)
[2020-06-01] MEDS: PIPERACILLIN/TAZOB 3.375 GM 3.375 GM in DEXTROSE 5%-WATER - 50 ML IVPB SCH ×3 (03:02→17:14)
[2020-06-01] MEDS: INSULIN (LEVEMIR) 100 UNITS/ML UNITS SQ SCH (06:33)
[2020-06-01] MEDS: glipiZIDE 5 MG TABLET (FP) PO SCH ×2 (06:33→16:23)
[2020-06-01] MEDS: INSULIN SLIDING SCALE (NOVOLOG) 1 VIAL SQ SCH ×3 (06:35→16:23)
[2020-06-01 09:29] LABS: BASO % 0.5 % (0-2.0); EOS % 2.2 % (0-4.5); HEMATOCRIT 31.7 % (35.4-49); HEMOGLOBIN 10.5 GM/dL (11.7-16.9); LYMPH % 10.7 % (8-40); MCH 31.5 pg (25.7-33.7); MEAN CELL VOLUME 95.4 fl (80-96); MEAN PLT VOLUME 7.7 fl (7.5-11.1); NEUT % 78.6 % (42.8-82.8); PLATELET COUNT 382 K/MM3 (134-434); RBC 3.32 M/mm3 (4.00-5.60); WHITE BLOOD COUNT 14.5 K/mm3 (4.0-10.0)
[2020-06-01] MEDS: GABAPENTIN 300 MG CAPSULE PO SCH (09:50)
[2020-06-01] MEDS ORDERED: INSULIN (NOVOLOG) ASPART 100 UNITS/ML 10ML VIAL ONE (11:04)
[2020-06-01] MEDS: ACETAMINOPHEN 325 MG TABLET (FP) PO PRN (11:11)
[2020-06-02] MEDS ORDERED: PIPERACILLIN/TAZOBACTAM 3.375 GM VIAL IVPB ONE ×3 (01:29→16:32)
[2020-06-02] MEDS ORDERED: DEXTROSE 5%-WATER - 50 ML IVPB ONE ×3 (01:29→16:32)
[2020-06-02] MEDS: oxyCODONE HCL 5 MG TABLET PO PRN ×2 (01:38→20:37)
[2020-06-02] MEDS: PIPERACILLIN/TAZOB 3.375 GM 3.375 GM in DEXTROSE 5%-WATER - 50 ML IVPB SCH ×3 (01:38→17:45)
[2020-06-02] MEDS: VANCOMYCIN 1 GRAM (PRE-DOCKED) 1,000 MG/250 ML BAG IVPB SCH (03:33)
[2020-06-02] MEDS: INSULIN (LEVEMIR) 100 UNITS/ML UNITS SQ SCH (06:34)
[2020-06-02] MEDS: glipiZIDE 5 MG TABLET (FP) PO SCH ×2 (06:34→16:35)
[2020-06-02] MEDS: INSULIN SLIDING SCALE (NOVOLOG) 1 VIAL SQ SCH ×3 (06:34→16:30)
[2020-06-02] MEDS: GABAPENTIN 300 MG CAPSULE PO SCH (10:01)
[2020-06-02] MEDS: SODIUM CHLORIDE 1,000 ML IV SCH (11:44)
[2020-06-03] MEDS ORDERED: PIPERACILLIN/TAZOBACTAM 3.375 GM VIAL IVPB ONE ×3 (02:07→17:47)
[2020-06-03] MEDS ORDERED: DEXTROSE 5%-WATER - 50 ML IVPB ONE ×3 (02:07→17:47)
[2020-06-03] MEDS: PIPERACILLIN/TAZOB 3.375 GM 3.375 GM in DEXTROSE 5%-WATER - 50 ML IVPB SCH ×3 (02:48→17:51)
[2020-06-03] MEDS: VANCOMYCIN HCL 1,500 MG in DEXTROSE 5%-WATER - 500 ML IVPB SCH (04:35)
[2020-06-03] MEDS ORDERED: PT OWN MED DRAWER 7, Y5N ONE (04:58)
[2020-06-03] MEDS: INSULIN (LEVEMIR) 100 UNITS/ML UNITS SQ SCH (06:13)
[2020-06-03] MEDS: glipiZIDE 5 MG TABLET (FP) PO SCH ×2 (06:14→16:15)
[2020-06-03] MEDS: INSULIN SLIDING SCALE (NOVOLOG) 1 VIAL SQ SCH ×3 (06:14→16:30)
[2020-06-03] MEDS: GABAPENTIN 300 MG CAPSULE PO SCH (09:41)
[2020-06-03] MEDS ORDERED: INSULIN (NOVOLOG) ASPART 100 UNITS/ML 10ML VIAL ONE (11:08)
[2020-06-03] MEDS: oxyCODONE HCL 5 MG TABLET PO PRN (11:26)
[2020-06-03 11:45] LABS: BASO % 0.7 % (0-2.0); EOS % 2.3 % (0-4.5); HEMATOCRIT 31.1 % (35.4-49); HEMOGLOBIN 10.1 GM/dL (11.7-16.9); LYMPH % 12.5 % (8-40); MCHC 32.5 g/dl (32.0-35.9); MEAN CELL VOLUME 95.4 fl (80-96); MEAN PLT VOLUME 7.6 fl (7.5-11.1); NEUT % 77.5 % (42.8-82.8); PLATELET COUNT 448 K/MM3 (134-434); RBC 3.26 M/mm3 (4.00-5.60); RDW 13.1 % (11.9-15.9); WHITE BLOOD COUNT 12.2 K/mm3 (4.0-10.0)
[2020-06-03] MEDS: SODIUM CHLORIDE 1,000 ML IV SCH ×2 (12:41→13:20)
[2020-06-03] MEDS: ACETAMINOPHEN 325 MG TABLET (FP) PO PRN (20:14)
[2020-06-04] MEDS ORDERED: DEXTROSE 5%-WATER - 50 ML IVPB ONE ×2 (01:27→09:40)
[2020-06-04] MEDS ORDERED: PIPERACILLIN/TAZOBACTAM 3.375 GM VIAL IVPB ONE ×2 (01:27→09:40)
[2020-06-04] MEDS: PIPERACILLIN/TAZOB 3.375 GM 3.375 GM in DEXTROSE 5%-WATER - 50 ML IVPB SCH (02:46)
[2020-06-04] MEDS ORDERED: PT OWN MED DRAWER 7, Y5N ONE (04:22)
[2020-06-04] MEDS: VANCOMYCIN HCL 1,500 MG in DEXTROSE 5%-WATER - 500 ML IVPB SCH (04:33)
[2020-06-04] MEDS: glipiZIDE 5 MG TABLET (FP) PO SCH ×2 (06:40→17:12)
[2020-06-04] MEDS: INSULIN SLIDING SCALE (NOVOLOG) 1 VIAL SQ SCH ×3 (06:40→17:11)
[2020-06-04] MEDS: INSULIN (LEVEMIR) 100 UNITS/ML UNITS SQ SCH (06:41)
[2020-06-04] MEDS ORDERED: ERTAPENEM SODIUM 1 GM in SODIUM CHLORIDE 50 ML IVPB SCH (10:00)
[2020-06-04] MEDS ORDERED: CEFTRIAXONE 2 GM-D5W BAG 2 GM/50 ML BAG IVPB SCH (10:00)
[2020-06-04] MEDS ORDERED: INSULIN (LEVEMIR) 100 UNITS/ML UNITS SQ SCH (10:24)
[2020-06-04] MEDS ORDERED: CEFTRIAXONE 2 GM in DEXTROSE 5%-WATER 2 GM/100 ML BAG IVPB SCH (10:25)
[2020-06-04] MEDS ORDERED: DEXTROSE 5%-WATER 100 ML IVPB ONE ×2 (10:27→14:09)
[2020-06-04] MEDS: oxyCODONE HCL 5 MG TABLET PO PRN (11:08)
[2020-06-04] MEDS: GABAPENTIN 300 MG CAPSULE PO SCH (11:23)
[2020-06-04] MEDS: amLODIPine BESYLATE 5 MG TABLET (FP) PO SCH (12:42)
[2020-06-04] MEDS: CEFTRIAXONE 2 GM in DEXTROSE 5%-WATER 2 GM/100 ML BAG IVPB SCH (13:24)
[2020-06-04] MEDS: SODIUM CHLORIDE 1,000 ML IV SCH ×2 (13:25→17:12)
[2020-06-05] MEDS: glipiZIDE 5 MG TABLET (FP) PO SCH ×2 (06:16→16:59)
[2020-06-05] MEDS: INSULIN SLIDING SCALE (NOVOLOG) 1 VIAL SQ SCH ×3 (06:28→17:00)
[2020-06-05 09:26] LABS: BASO % 0.5 % (0-2.0); EOS % 2.7 % (0-4.5); HEMATOCRIT 31.9 % (35.4-49); HEMOGLOBIN 10.7 GM/dL (11.7-16.9); LYMPH % 13.8 % (8-40); MCH 31.7 pg (25.7-33.7); MCHC 33.5 g/dl (32.0-35.9); MEAN CELL VOLUME 94.7 fl (80-96); MEAN PLT VOLUME 7.3 fl (7.5-11.1); MONO % 6.1 % (3.8-10.2); NEUT % 76.9 % (42.8-82.8); PLATELET COUNT 505 K/MM3 (134-434); RBC 3.37 M/mm3 (4.00-5.60); RDW 13.6 % (11.9-15.9); WHITE BLOOD COUNT 12.3 K/mm3 (4.0-10.0)
[2020-06-05 09:34] LABS: POTASSIUM 4.4 mmol/L (3.5-5.1)
[2020-06-05 09:37] LABS: CALCIUM 8.9 mg/dL (8.5-10.1)
[2020-06-05 09:38] LABS: BLOOD UREA NITROGEN 9.8 mg/dL (7-18)
[2020-06-05 09:41] LABS: CREATININE 0.8 mg/dL (0.55-1.3)
[2020-06-05] MEDS ORDERED: DEXTROSE 5%-WATER 100 ML IVPB ONE (10:07)
[2020-06-05] MEDS: CEFTRIAXONE 2 GM in DEXTROSE 5%-WATER 2 GM/100 ML BAG IVPB SCH (10:54)
[2020-06-05] MEDS: MULTIVITAMINS (DAILY MVI) TABLET (FP) PO SCH (10:55)
[2020-06-05] MEDS: GABAPENTIN 300 MG CAPSULE PO SCH (10:55)
[2020-06-05] MEDS: amLODIPine BESYLATE 5 MG TABLET (FP) PO SCH (10:55)
[2020-06-05] MEDS ORDERED: INSULIN (NOVOLOG) ASPART 100 UNITS/ML 10ML VIAL ONE ×2 (11:03→17:46)
[2020-06-05] MEDS ORDERED: INSULIN (LEVEMIR) 100 UNITS/ML UNITS SQ SCH (14:15)
[2020-06-05] MEDS: SODIUM CHLORIDE 1,000 ML IV SCH (17:43)
[2020-06-06] MEDS: glipiZIDE 5 MG TABLET (FP) PO SCH ×2 (06:40→16:59)
[2020-06-06] MEDS: INSULIN SLIDING SCALE (NOVOLOG) 1 VIAL SQ SCH ×3 (06:40→16:59)
[2020-06-06] MEDS ORDERED: INSULIN (LEVEMIR) 100 UNITS/ML UNITS SQ SCH (07:00)
[2020-06-06] MEDS ORDERED: DEXTROSE 5%-WATER 100 ML IVPB ONE (08:48)
[2020-06-06] MEDS: GABAPENTIN 300 MG CAPSULE PO SCH (09:14)
[2020-06-06] MEDS: amLODIPine BESYLATE 5 MG TABLET (FP) PO SCH (09:14)
[2020-06-06] MEDS: MULTIVITAMINS (DAILY MVI) TABLET (FP) PO SCH (09:14)
[2020-06-06] MEDS: CEFTRIAXONE 2 GM in DEXTROSE 5%-WATER 2 GM/100 ML BAG IVPB SCH (09:14)
[2020-06-06] MEDS: oxyCODONE HCL 5 MG TABLET PO PRN (09:15)
[2020-06-06] MEDS: INSULIN (LEVEMIR) 100 UNITS/ML UNITS SQ SCH ×2 (09:51→21:59)
[2020-06-06] MEDS ORDERED: INSULIN (NOVOLOG) ASPART 100 UNITS/ML 10ML VIAL ONE (11:55)
[2020-06-06] MEDS: metFORMIN HCL 500 MG TABLET (FP) PO SCH (16:59)
[2020-06-06] MEDS: SODIUM CHLORIDE 1,000 ML IV SCH (17:01)
[2020-06-06] MEDS ORDERED: PT OWN MED DRAWER 7, Y5N ONE (18:31)
[2020-06-07] MEDS: metFORMIN HCL 500 MG TABLET (FP) PO SCH ×2 (06:47→17:50)
[2020-06-07] MEDS: glipiZIDE 5 MG TABLET (FP) PO SCH ×2 (06:47→17:50)
[2020-06-07] MEDS: INSULIN (LEVEMIR) 100 UNITS/ML UNITS SQ SCH ×2 (06:47→21:41)
[2020-06-07] MEDS: INSULIN SLIDING SCALE (NOVOLOG) 1 VIAL SQ SCH ×3 (06:47→17:20)
[2020-06-07] MEDS ORDERED: DEXTROSE 5%-WATER 100 ML IVPB ONE (08:56)
[2020-06-07] MEDS: CEFTRIAXONE 2 GM in DEXTROSE 5%-WATER 2 GM/100 ML BAG IVPB SCH (09:08)
[2020-06-07] MEDS: amLODIPine BESYLATE 5 MG TABLET (FP) PO SCH (09:08)
[2020-06-07] MEDS: GABAPENTIN 300 MG CAPSULE PO SCH (09:08)
[2020-06-07] MEDS: MULTIVITAMINS (DAILY MVI) TABLET (FP) PO SCH (09:08)
[2020-06-07] MEDS: oxyCODONE HCL 5 MG TABLET PO PRN (09:15)
[2020-06-07 12:21] LABS: BASO % 0.5 % (0-2.0); EOS % 2.9 % (0-4.5); HEMATOCRIT 32.1 % (35.4-49); HEMOGLOBIN 10.7 GM/dL (11.7-16.9); LYMPH % 17.6 % (8-40); MCH 31.4 pg (25.7-33.7); MCHC 33.3 g/dl (32.0-35.9); MEAN CELL VOLUME 94.4 fl (80-96); MONO % 6.7 % (3.8-10.2); NEUT % 72.3 % (42.8-82.8); PLATELET COUNT 558 K/MM3 (134-434); RDW 13.4 % (11.9-15.9); WHITE BLOOD COUNT 10.7 K/mm3 (4.0-10.0)
[2020-06-07] MEDS: SODIUM CHLORIDE 1,000 ML IV SCH (13:15)
[2020-06-08] MEDS: metFORMIN HCL 500 MG TABLET (FP) PO SCH ×2 (06:07→17:00)
[2020-06-08] MEDS: glipiZIDE 5 MG TABLET (FP) PO SCH ×2 (06:07→17:00)
[2020-06-08] MEDS: INSULIN (LEVEMIR) 100 UNITS/ML UNITS SQ SCH ×2 (06:07→21:49)
[2020-06-08] MEDS: INSULIN SLIDING SCALE (NOVOLOG) 1 VIAL SQ SCH ×3 (06:09→15:59)
[2020-06-08] MEDS ORDERED: DEXTROSE 5%-WATER 100 ML IVPB ONE ×2 (10:32→10:40)
[2020-06-08] MEDS: GABAPENTIN 300 MG CAPSULE PO SCH (10:39)
[2020-06-08] MEDS: MULTIVITAMINS (DAILY MVI) TABLET (FP) PO SCH (10:39)
[2020-06-08] MEDS: amLODIPine BESYLATE 5 MG TABLET (FP) PO SCH (10:39)
[2020-06-08] MEDS: CEFTRIAXONE 2 GM in DEXTROSE 5%-WATER 2 GM/100 ML BAG IVPB SCH (10:42)
[2020-06-08] MEDS: SODIUM CHLORIDE 1,000 ML IV SCH (15:59)
[2020-06-08] MEDS: ACETAMINOPHEN 325 MG TABLET (FP) PO PRN (22:02)
[2020-06-09] MEDS: metFORMIN HCL 500 MG TABLET (FP) PO SCH ×2 (06:12→17:15)
[2020-06-09] MEDS: glipiZIDE 5 MG TABLET (FP) PO SCH ×2 (06:13→17:15)
[2020-06-09] MEDS: INSULIN (LEVEMIR) 100 UNITS/ML UNITS SQ SCH ×2 (06:13→21:11)
[2020-06-09] MEDS: INSULIN SLIDING SCALE (NOVOLOG) 1 VIAL SQ SCH ×3 (06:17→17:05)
[2020-06-09] MEDS ORDERED: PT OWN MED DRAWER 7, Y5N ONE (09:22)
[2020-06-09] MEDS ORDERED: DEXTROSE 5%-WATER 100 ML IVPB ONE (09:22)
[2020-06-09] MEDS: amLODIPine BESYLATE 5 MG TABLET (FP) PO SCH (09:54)
[2020-06-09] MEDS: GABAPENTIN 300 MG CAPSULE PO SCH (09:54)
[2020-06-09] MEDS: MULTIVITAMINS (DAILY MVI) TABLET (FP) PO SCH (09:54)
[2020-06-09] MEDS: CEFTRIAXONE 2 GM in DEXTROSE 5%-WATER 2 GM/100 ML BAG IVPB SCH (09:55)
[2020-06-09] MEDS ORDERED: COLLAGENASE CLOSTRIDIUM HIST. 30 GRAMS TUBE TP SCH (14:15)
[2020-06-09] MEDS: COLLAGENASE CLOSTRIDIUM HIST. 30 GRAMS TUBE TP SCH (15:07)
[2020-06-10] MEDS: INSULIN (LEVEMIR) 100 UNITS/ML UNITS SQ SCH ×2 (06:31→22:44)
[2020-06-10] MEDS: metFORMIN HCL 500 MG TABLET (FP) PO SCH ×2 (06:31→17:02)
[2020-06-10] MEDS: glipiZIDE 5 MG TABLET (FP) PO SCH ×2 (06:31→17:02)
[2020-06-10] MEDS: INSULIN SLIDING SCALE (NOVOLOG) 1 VIAL SQ SCH ×3 (06:31→17:01)
[2020-06-10] MEDS: ACETAMINOPHEN 325 MG TABLET (FP) PO PRN (06:36)
[2020-06-10] MEDS ORDERED: DEXTROSE 5%-WATER 100 ML IVPB ONE (10:32)
[2020-06-10] MEDS ORDERED: PT OWN MED DRAWER 7, Y5N ONE (10:32)
[2020-06-10] MEDS: CEFTRIAXONE 2 GM in DEXTROSE 5%-WATER 2 GM/100 ML BAG IVPB SCH (12:22)
[2020-06-10] MEDS: GABAPENTIN 300 MG CAPSULE PO SCH (12:22)
[2020-06-10] MEDS: MULTIVITAMINS (DAILY MVI) TABLET (FP) PO SCH (12:22)
[2020-06-10] MEDS: amLODIPine BESYLATE 5 MG TABLET (FP) PO SCH (12:23)
[2020-06-10] MEDS: COLLAGENASE CLOSTRIDIUM HIST. 30 GRAMS TUBE TP SCH (12:29)
[2020-06-10 14:01] LABS: BASO % 0.7 % (0-2.0); EOS % 3.2 % (0-4.5); HEMATOCRIT 32.6 % (35.4-49); LYMPH % 20.5 % (8-40); MCH 32.2 pg (25.7-33.7); MCHC 33.6 g/dl (32.0-35.9); MEAN CELL VOLUME 95.7 fl (80-96); MEAN PLT VOLUME 7.1 fl (7.5-11.1); MONO % 5.5 % (3.8-10.2); NEUT % 70.1 % (42.8-82.8); PLATELET COUNT 511 K/MM3 (134-434); RBC 3.41 M/mm3 (4.00-5.60); RDW 14.2 % (11.9-15.9); WHITE BLOOD COUNT 10.5 K/mm3 (4.0-10.0)
[2020-06-11] MEDS: glipiZIDE 5 MG TABLET (FP) PO SCH ×2 (07:06→17:29)
[2020-06-11] MEDS: metFORMIN HCL 500 MG TABLET (FP) PO SCH ×2 (07:06→17:29)
[2020-06-11] MEDS: INSULIN (LEVEMIR) 100 UNITS/ML UNITS SQ SCH ×2 (07:07→21:56)
[2020-06-11] MEDS: INSULIN SLIDING SCALE (NOVOLOG) 1 VIAL SQ SCH ×3 (07:07→17:30)
[2020-06-11] MEDS: SODIUM CHLORIDE 1,000 ML IV SCH (07:21)
[2020-06-11] MEDS ORDERED: DEXTROSE 5%-WATER 100 ML IVPB ONE (10:50)
[2020-06-11] MEDS: amLODIPine BESYLATE 5 MG TABLET (FP) PO SCH (10:59)
[2020-06-11] MEDS: GABAPENTIN 300 MG CAPSULE PO SCH (10:59)
[2020-06-11] MEDS: MULTIVITAMINS (DAILY MVI) TABLET (FP) PO SCH (10:59)
[2020-06-11] MEDS: CEFTRIAXONE 2 GM in DEXTROSE 5%-WATER 2 GM/100 ML BAG IVPB SCH (11:01)
[2020-06-11] MEDS: COLLAGENASE CLOSTRIDIUM HIST. 30 GRAMS TUBE TP SCH (11:02)
[2020-06-12] MEDS: metFORMIN HCL 500 MG TABLET (FP) PO SCH ×2 (06:03→17:16)
[2020-06-12] MEDS: glipiZIDE 5 MG TABLET (FP) PO SCH ×2 (06:03→17:14)
[2020-06-12] MEDS: INSULIN SLIDING SCALE (NOVOLOG) 1 VIAL SQ SCH ×3 (06:03→17:05)
[2020-06-12] MEDS: INSULIN (LEVEMIR) 100 UNITS/ML UNITS SQ SCH ×2 (06:04→23:00)
[2020-06-12] MEDS: GABAPENTIN 300 MG CAPSULE PO SCH (09:21)
[2020-06-12] MEDS: amLODIPine BESYLATE 5 MG TABLET (FP) PO SCH (09:21)
[2020-06-12] MEDS: MULTIVITAMINS (DAILY MVI) TABLET (FP) PO SCH (09:21)
[2020-06-12] MEDS: COLLAGENASE CLOSTRIDIUM HIST. 30 GRAMS TUBE TP SCH (09:25)
[2020-06-12 11:34] LABS: EOS % 3.5 % (0-4.5); HEMATOCRIT 34.3 % (35.4-49); HEMOGLOBIN 11.2 GM/dL (11.7-16.9); LYMPH % 22.4 % (8-40); MCH 31.2 pg (25.7-33.7); MCHC 32.6 g/dl (32.0-35.9); MEAN CELL VOLUME 95.6 fl (80-96); MEAN PLT VOLUME 7.2 fl (7.5-11.1); MONO % 6.3 % (3.8-10.2); NEUT % 66.8 % (42.8-82.8); PLATELET COUNT 487 K/MM3 (134-434); RBC 3.59 M/mm3 (4.00-5.60); RDW 14.1 % (11.9-15.9); WHITE BLOOD COUNT 8.6 K/mm3 (4.0-10.0)
[2020-06-12] MEDS ORDERED: INSULIN (NOVOLOG) ASPART 100 UNITS/ML 10ML VIAL ONE ×2 (11:40→17:00)
[2020-06-12 11:56] LABS: POTASSIUM 4.5 mmol/L (3.5-5.1)
[2020-06-12 11:57] LABS: CALCIUM 8.8 mg/dL (8.5-10.1)
[2020-06-12 11:58] LABS: BLOOD UREA NITROGEN 13.3 mg/dL (7-18)
[2020-06-12 12:01] LABS: CREATININE 0.9 mg/dL (0.55-1.3)
[2020-06-12] MEDS: SODIUM CHLORIDE 1,000 ML IV SCH (17:05)
[2020-06-12] MEDS ORDERED: CEFTRIAXONE 2 GM in DEXTROSE 5%-WATER 100 ML IVPB ONE (17:15)
[2020-06-12] MEDS ORDERED: DEXTROSE 5%-WATER 100 ML IVPB ONE (17:25)
[2020-06-13] MEDS: metFORMIN HCL 500 MG TABLET (FP) PO SCH ×2 (06:20→17:36)
[2020-06-13] MEDS: glipiZIDE 5 MG TABLET (FP) PO SCH ×2 (06:20→17:36)
[2020-06-13] MEDS: INSULIN (LEVEMIR) 100 UNITS/ML UNITS SQ SCH ×2 (06:21→22:03)
[2020-06-13] MEDS: INSULIN SLIDING SCALE (NOVOLOG) 1 VIAL SQ SCH ×3 (06:21→17:37)
[2020-06-13] MEDS ORDERED: CEFTRIAXONE 2 GM in DEXTROSE 5%-WATER - 50 ML IVPB SCH (10:00)
[2020-06-13] MEDS ORDERED: DEXTROSE 5%-WATER 100 ML IVPB ONE (10:06)
[2020-06-13] MEDS: CEFTRIAXONE 2 GM in DEXTROSE 5%-WATER 100 ML IVPB SCH (10:27)
[2020-06-13] MEDS: GABAPENTIN 300 MG CAPSULE PO SCH (10:28)
[2020-06-13] MEDS: MULTIVITAMINS (DAILY MVI) TABLET (FP) PO SCH (10:28)
[2020-06-13] MEDS: amLODIPine BESYLATE 5 MG TABLET (FP) PO SCH (10:28)
[2020-06-13] MEDS: COLLAGENASE CLOSTRIDIUM HIST. 30 GRAMS TUBE TP SCH (11:55)
[2020-06-14] MEDS: INSULIN (LEVEMIR) 100 UNITS/ML UNITS SQ SCH ×2 (06:43→22:40)
[2020-06-14] MEDS: glipiZIDE 5 MG TABLET (FP) PO SCH ×2 (06:45→17:16)
[2020-06-14] MEDS: INSULIN SLIDING SCALE (NOVOLOG) 1 VIAL SQ SCH ×3 (06:45→17:16)
[2020-06-14] MEDS: metFORMIN HCL 500 MG TABLET (FP) PO SCH ×2 (06:45→17:16)
[2020-06-14] MEDS: GABAPENTIN 300 MG CAPSULE PO SCH (09:56)
[2020-06-14] MEDS ORDERED: DEXTROSE 5%-WATER 100 ML IVPB ONE (09:56)
[2020-06-14] MEDS: amLODIPine BESYLATE 5 MG TABLET (FP) PO SCH (09:57)
[2020-06-14] MEDS: MULTIVITAMINS (DAILY MVI) TABLET (FP) PO SCH (09:57)
[2020-06-14] MEDS: CEFTRIAXONE 2 GM in DEXTROSE 5%-WATER 100 ML IVPB SCH (09:57)
[2020-06-14] MEDS: COLLAGENASE CLOSTRIDIUM HIST. 30 GRAMS TUBE TP SCH (10:58)
[2020-06-14] MEDS: SODIUM CHLORIDE 1,000 ML IV SCH ×2 (10:58→22:41)
[2020-06-14] MEDS ORDERED: LIDOCAINE HCL 1%, 10 MG/ML (20ML VIAL) ONE (14:29)
[2020-06-14] MEDS ORDERED: HEPARIN NA (PORCINE) 5,000 UNITS/ML 1ML VIAL ONE ×3 (14:29→19:20)
[2020-06-14] MEDS ORDERED: NITROGLYCERIN 50 MG/10 ML VIAL IVPB ONE (15:03)
[2020-06-14] MEDS ORDERED: MIDAZOLAM HCL 2 MG/2 ML SINGLE DOSE VIAL ONE ×2 (17:31→17:45)
[2020-06-14] MEDS ORDERED: LIDOCAINE HCL 1%, 10 MG/ML (20ML VIAL) NR ONE (18:19)
[2020-06-14] MEDS ORDERED: PROPOFOL 20 ML ONE ×4 (18:21→19:26)
[2020-06-14] MEDS ORDERED: ONDANSETRON 4 MG/2 ML VIAL IVPUSH PRN (20:04)
[2020-06-14] MEDS ORDERED: ACETAMINOPHEN 1000 MG/100 ML VIAL (NON FORMULARY) IVPB ONE ×2 (20:15)
[2020-06-14] MEDS ORDERED: ACETAMINOPHEN INJECTION 100 ML IVPB ONE (20:18)
[2020-06-14] MEDS ORDERED: CLOPIDOGREL BISULFATE 75 MG TABLET (FP) ONE (20:49)
[2020-06-14] MEDS ORDERED: CLOPIDOGREL BISULFATE 75 MG TABLET (FP) PO ONE (20:59)
[2020-06-14] MEDS: CLOPIDOGREL BISULFATE 75 MG TABLET (FP) PO SCH (21:52)
[2020-06-14] MEDS: LACTATED RINGERS SOLUTION 1,000 ML IV SCH (22:46)
[2020-06-15] MEDS: ACETAMINOPHEN 325 MG TABLET (FP) PO PRN (01:22)
[2020-06-15] MEDS: glipiZIDE 5 MG TABLET (FP) PO SCH ×2 (06:18→16:41)
[2020-06-15] MEDS: INSULIN SLIDING SCALE (NOVOLOG) 1 VIAL SQ SCH ×3 (06:18→16:39)
[2020-06-15] MEDS: metFORMIN HCL 500 MG TABLET (FP) PO SCH ×2 (06:18→16:41)
[2020-06-15] MEDS: INSULIN (LEVEMIR) 100 UNITS/ML UNITS SQ SCH ×2 (06:19→23:04)
[2020-06-15] MEDS ORDERED: PT OWN MED DRAWER 7, Y5N ONE (09:39)
[2020-06-15] MEDS ORDERED: DEXTROSE 5%-WATER 100 ML IVPB ONE (09:40)
[2020-06-15] MEDS: MULTIVITAMINS (DAILY MVI) TABLET (FP) PO SCH (09:43)
[2020-06-15] MEDS: amLODIPine BESYLATE 5 MG TABLET (FP) PO SCH (09:43)
[2020-06-15] MEDS: CEFTRIAXONE 2 GM in DEXTROSE 5%-WATER 100 ML IVPB SCH (09:43)
[2020-06-15] MEDS: GABAPENTIN 300 MG CAPSULE PO SCH (09:43)
[2020-06-15] MEDS: SODIUM CHLORIDE 1,000 ML IV SCH (09:44)
[2020-06-15] MEDS: CLOPIDOGREL BISULFATE 75 MG TABLET (FP) PO SCH (09:44)
[2020-06-15] MEDS: COLLAGENASE CLOSTRIDIUM HIST. 30 GRAMS TUBE TP SCH (09:44)
[2020-06-16] MEDS: glipiZIDE 5 MG TABLET (FP) PO SCH ×2 (06:58→16:31)
[2020-06-16] MEDS: INSULIN (LEVEMIR) 100 UNITS/ML UNITS SQ SCH ×2 (06:58→22:18)
[2020-06-16] MEDS: metFORMIN HCL 500 MG TABLET (FP) PO SCH ×2 (06:58→16:31)
[2020-06-16] MEDS: INSULIN SLIDING SCALE (NOVOLOG) 1 VIAL SQ SCH ×3 (06:59→16:33)
[2020-06-16] MEDS ORDERED: INSULIN (NOVOLOG) ASPART 100 UNITS/ML 10ML VIAL ONE (07:10)
[2020-06-16] MEDS ORDERED: DEXTROSE 5%-WATER 100 ML IVPB ONE (09:59)
[2020-06-16] MEDS: GABAPENTIN 300 MG CAPSULE PO SCH (10:01)
[2020-06-16] MEDS: CEFTRIAXONE 2 GM in DEXTROSE 5%-WATER 100 ML IVPB SCH (10:01)
[2020-06-16] MEDS: amLODIPine BESYLATE 5 MG TABLET (FP) PO SCH (10:01)
[2020-06-16] MEDS: COLLAGENASE CLOSTRIDIUM HIST. 30 GRAMS TUBE TP SCH (10:01)
[2020-06-16] MEDS: MULTIVITAMINS (DAILY MVI) TABLET (FP) PO SCH (10:01)
[2020-06-16] MEDS: SODIUM CHLORIDE 1,000 ML IV SCH ×2 (10:02→22:17)
[2020-06-16] MEDS: LACTATED RINGERS SOLUTION 1,000 ML IV SCH ×2 (10:02→22:18)
[2020-06-16 13:23] LABS: BASO % 0.8 % (0-2.0); EOS % 5.1 % (0-4.5); HEMATOCRIT 36.2 % (35.4-49); HEMOGLOBIN 11.8 GM/dL (11.7-16.9); LYMPH % 25.3 % (8-40); MCHC 32.4 g/dl (32.0-35.9); MEAN CELL VOLUME 95.4 fl (80-96); MEAN PLT VOLUME 7.6 fl (7.5-11.1); MONO % 7.2 % (3.8-10.2); NEUT % 61.6 % (42.8-82.8); PLATELET COUNT 367 K/MM3 (134-434); RDW 14.3 % (11.9-15.9); WHITE BLOOD COUNT 8.7 K/mm3 (4.0-10.0)
[2020-06-16 13:30] LABS: INR 1.05 (0.83-1.09); PROTHROMBIN TIME (PATIENT) 12.9 SEC (9.7-13.0)
[2020-06-16] MEDS: ACETAMINOPHEN 325 MG TABLET (FP) PO PRN (22:19)
[2020-06-17] MEDS: INSULIN (LEVEMIR) 100 UNITS/ML UNITS SQ SCH ×2 (06:48→22:50)
[2020-06-17] MEDS: INSULIN SLIDING SCALE (NOVOLOG) 1 VIAL SQ SCH ×3 (06:48→17:11)
[2020-06-17] MEDS: metFORMIN HCL 500 MG TABLET (FP) PO SCH ×2 (06:48→16:47)
[2020-06-17] MEDS: glipiZIDE 5 MG TABLET (FP) PO SCH ×2 (06:48→16:47)
[2020-06-17] MEDS: ACETAMINOPHEN 325 MG TABLET (FP) PO PRN (07:56)
[2020-06-17] MEDS ORDERED: INSULIN (LEVEMIR) 100 UNITS/ML UNITS SQ ONE (08:03)
[2020-06-17] MEDS ORDERED: INSULIN (NOVOLOG) ASPART 100 UNITS/ML 10ML VIAL ONE (08:04)
[2020-06-17] MEDS ORDERED: DEXAMETHASONE SOD PHOSPHATE 4 MG/1 ML VIAL ONE (08:36)
[2020-06-17] MEDS ORDERED: LIDOCAINE HCL 1%, 10 MG/ML (20ML VIAL) ONE (08:36)
[2020-06-17] MEDS ORDERED: MIDAZOLAM HCL 2 MG/2 ML SINGLE DOSE VIAL ONE (08:39)
[2020-06-17] MEDS ORDERED: SODIUM CHLORIDE 0.9% P/F 10 ML VIAL IJ ONE (09:21)
[2020-06-17] MEDS ORDERED: LIDOCAINE HCL 1%, 10 MG/ML (20ML VIAL) INF ONE (09:25)
[2020-06-17] MEDS ORDERED: BACITRACIN 50,000 UNITS VIAL TP ONE (09:45)
[2020-06-17] MEDS ORDERED: PROPOFOL 20 ML ONE (09:50)
[2020-06-17] MEDS ORDERED: SODIUM CHLORIDE 1,000 ML IV SCH (10:08)
[2020-06-17] MEDS ORDERED: LACTATED RINGERS SOLUTION 1,000 ML IV SCH (10:08)
[2020-06-17] MEDS ORDERED: ONDANSETRON 4 MG/2 ML VIAL IVPUSH PRN ×2 (10:08→10:12)
[2020-06-17] MEDS: GABAPENTIN 300 MG CAPSULE PO SCH (11:08)
[2020-06-17] MEDS: amLODIPine BESYLATE 5 MG TABLET (FP) PO SCH (11:08)
[2020-06-17] MEDS: CEFTRIAXONE 2 GM in DEXTROSE 5%-WATER 100 ML IVPB SCH ×2 (11:09→13:31)
[2020-06-17] MEDS: MULTIVITAMINS (DAILY MVI) TABLET (FP) PO SCH (11:09)
[2020-06-17 11:10] LABS: BASO % 1.3 % (0-2.0); EOS % 4.8 % (0-4.5); HEMATOCRIT 37.7 % (35.4-49); HEMOGLOBIN 12.5 GM/dL (11.7-16.9); LYMPH % 19.1 % (8-40); MCH 31.7 pg (25.7-33.7); MCHC 33.1 g/dl (32.0-35.9); MEAN CELL VOLUME 95.6 fl (80-96); MEAN PLT VOLUME 7.4 fl (7.5-11.1); MONO % 7.6 % (3.8-10.2); NEUT % 67.2 % (42.8-82.8); PLATELET COUNT 325 K/MM3 (134-434); RBC 3.94 M/mm3 (4.00-5.60); RDW 14.2 % (11.9-15.9); WHITE BLOOD COUNT 9.2 K/mm3 (4.0-10.0)
[2020-06-17] MEDS: COLLAGENASE CLOSTRIDIUM HIST. 30 GRAMS TUBE TP SCH (11:49)
[2020-06-17] MEDS: LACTATED RINGERS SOLUTION 1,000 ML IV SCH ×2 (11:50→20:55)
[2020-06-17] MEDS ORDERED: DEXTROSE 5%-WATER 100 ML IVPB ONE (13:29)
[2020-06-18] MEDS: glipiZIDE 5 MG TABLET (FP) PO SCH ×2 (06:23→17:05)
[2020-06-18] MEDS: INSULIN (LEVEMIR) 100 UNITS/ML UNITS SQ SCH ×2 (06:24→21:19)
[2020-06-18] MEDS: INSULIN SLIDING SCALE (NOVOLOG) 1 VIAL SQ SCH ×3 (06:24→17:05)
[2020-06-18] MEDS: metFORMIN HCL 500 MG TABLET (FP) PO SCH ×2 (06:24→17:05)
[2020-06-18] MEDS: ACETAMINOPHEN 325 MG TABLET (FP) PO PRN (06:24)
[2020-06-18] MEDS ORDERED: DEXTROSE 5%-WATER 100 ML IVPB ONE (10:57)
[2020-06-18] MEDS: amLODIPine BESYLATE 5 MG TABLET (FP) PO SCH (10:59)
[2020-06-18] MEDS: GABAPENTIN 300 MG CAPSULE PO SCH (10:59)
[2020-06-18] MEDS: MULTIVITAMINS (DAILY MVI) TABLET (FP) PO SCH (10:59)
[2020-06-18] MEDS: CEFTRIAXONE 2 GM in DEXTROSE 5%-WATER 100 ML IVPB SCH (11:00)
[2020-06-18] MEDS: COLLAGENASE CLOSTRIDIUM HIST. 30 GRAMS TUBE TP SCH (11:00)
[2020-06-18] MEDS: LACTATED RINGERS SOLUTION 1,000 ML IV SCH (11:01)
[2020-06-18] MEDS ORDERED: INSULIN (NOVOLOG) ASPART 100 UNITS/ML 10ML VIAL ONE (20:57)
[2020-06-19] MEDS: INSULIN SLIDING SCALE (NOVOLOG) 1 VIAL SQ SCH ×3 (06:16→16:36)
[2020-06-19] MEDS: glipiZIDE 5 MG TABLET (FP) PO SCH ×2 (06:22→16:36)
[2020-06-19] MEDS: metFORMIN HCL 500 MG TABLET (FP) PO SCH ×2 (06:22→16:36)
[2020-06-19] MEDS: INSULIN (LEVEMIR) 100 UNITS/ML UNITS SQ SCH ×2 (06:22→21:42)
[2020-06-19] MEDS ORDERED: DEXTROSE 5%-WATER 100 ML IVPB ONE (08:45)
[2020-06-19] MEDS: CEFTRIAXONE 2 GM in DEXTROSE 5%-WATER 100 ML IVPB SCH (09:02)
[2020-06-19] MEDS: amLODIPine BESYLATE 5 MG TABLET (FP) PO SCH (09:04)
[2020-06-19] MEDS: GABAPENTIN 300 MG CAPSULE PO SCH (09:04)
[2020-06-19] MEDS: MULTIVITAMINS (DAILY MVI) TABLET (FP) PO SCH (09:04)
[2020-06-19] MEDS ORDERED: INSULIN (NOVOLOG) ASPART 100 UNITS/ML 10ML VIAL ONE (11:08)
[2020-06-19] MEDS: ACETAMINOPHEN 325 MG TABLET (FP) PO PRN (13:50)
[2020-06-19] MEDS: COLLAGENASE CLOSTRIDIUM HIST. 30 GRAMS TUBE TP SCH (13:51)
[2020-06-20] MEDS: INSULIN SLIDING SCALE (NOVOLOG) 1 VIAL SQ SCH ×3 (06:33→17:41)
[2020-06-20] MEDS: INSULIN (LEVEMIR) 100 UNITS/ML UNITS SQ SCH (06:34)
[2020-06-20] MEDS: glipiZIDE 5 MG TABLET (FP) PO SCH ×2 (06:34→17:38)
[2020-06-20] MEDS: metFORMIN HCL 500 MG TABLET (FP) PO SCH ×2 (06:34→17:38)
[2020-06-20] MEDS ORDERED: DEXTROSE 5%-WATER 100 ML IVPB ONE (07:34)
[2020-06-20 09:00] LABS: EOS % 7.8 % (0-4.5); HEMATOCRIT 36.5 % (35.4-49); HEMOGLOBIN 12.1 GM/dL (11.7-16.9); LYMPH % 22.7 % (8-40); MCH 31.4 pg (25.7-33.7); MCHC 33.3 g/dl (32.0-35.9); MEAN CELL VOLUME 94.3 fl (80-96); MEAN PLT VOLUME 8.3 fl (7.5-11.1); MONO % 9.7 % (3.8-10.2); NEUT % 58.8 % (42.8-82.8); PLATELET COUNT 282 K/MM3 (134-434); RBC 3.87 M/mm3 (4.00-5.60); RDW 14.4 % (11.9-15.9)
[2020-06-20] MEDS: CEFTRIAXONE 2 GM in DEXTROSE 5%-WATER 100 ML IVPB SCH (09:16)
[2020-06-20 09:22] LABS: POTASSIUM 4.5 mmol/L (3.5-5.1)
[2020-06-20] MEDS: amLODIPine BESYLATE 5 MG TABLET (FP) PO SCH (09:53)
[2020-06-20] MEDS: MULTIVITAMINS (DAILY MVI) TABLET (FP) PO SCH (09:53)
[2020-06-20] MEDS: GABAPENTIN 300 MG CAPSULE PO SCH (09:53)
[2020-06-20 10:02] LABS: BLOOD UREA NITROGEN 17.8 mg/dL (7-18)
[2020-06-20 10:03] LABS: CALCIUM 9.3 mg/dL (8.5-10.1)
[2020-06-20 10:05] LABS: CREATININE 0.8 mg/dL (0.55-1.3)
[2020-06-20] MEDS: COLLAGENASE CLOSTRIDIUM HIST. 30 GRAMS TUBE TP SCH (10:52)
[2020-06-20 15:48] VITALS: BP 141/76; PULSE 75; TEMP 98.3
== END 2020-06-20 18:47 | DRG 853 ==
LOC: JER 12:08 → JERBED 14:17 → J6S 21:51
PROVIDERS: ADMIT Internal Medicine; ATTEND Internal Medicine
PROC: 0Y6P0Z0 Detachment at Right 1st Toe, Complete, Open Approach (ICD-10-PCS; 2020-05-30)
PROC: 0SBM0ZZ Excision of Right Metatarsal-Phalangeal Joint, Open Approach (ICD-10-PCS; 2020-05-30)
PROC: 047P3ZZ Dilation of Right Anterior Tibial Artery, Percutaneous Approach (ICD-10-PCS; 2020-06-14)
PROC: B40DYZZ Plain Radiography of Aorta and Bilateral Lower Extremity Arteries using Other Contrast (ICD-10-PCS; 2020-06-14)
PROC: B40FYZZ Plain Radiography of Right Lower Extremity Arteries using Other Contrast (ICD-10-PCS; 2020-06-14)
PROC: 04CP3ZZ Extirpation of Matter from Right Anterior Tibial Artery, Percutaneous Approach (ICD-10-PCS; principal; 2020-06-14 17:00)
PROC: 0JXQ0ZZ Transfer Right Foot Subcutaneous Tissue and Fascia, Open Approach (ICD-10-PCS; 2020-06-17)
PROC: 3E10X8Z Irrigation of Skin and Mucous Membranes using Irrigating Substance (ICD-10-PCS; 2020-06-17)
DX: A41.89 Other specified sepsis (principal); A48.0 Gas gangrene; L03.115 Cellulitis of right lower limb; L97.518 Non-pressure chronic ulcer of other part of right foot with other specified severity; E11.52 Type 2 diabetes mellitus with diabetic peripheral angiopathy with gangrene; R00.0 Tachycardia, unspecified; I10 Essential (primary) hypertension; E78.5 Hyperlipidemia, unspecified; E11.65 Type 2 diabetes mellitus with hyperglycemia; E11.40 Type 2 diabetes mellitus with diabetic neuropathy, unspecified; E11.621 Type 2 diabetes mellitus with foot ulcer; F17.200 Nicotine dependence, unspecified, uncomplicated; E86.0 Dehydration; D72.829 Elevated white blood cell count, unspecified; I77.1 Stricture of artery
CPT/HCPCS: 36415; 36569; 71045-TC-FY; 73630-TC-LT; 73630-TC-RT-FY; 73701-TC-RT; 75635-TC; 76000-TC-FY; 80048; 80053; 82550; 82962; 83036; 83605; 83735; 84100; 85025; 85379; 85610; 85651; 85730; 86140; 86850; 86900; 86901; 87040; 87070; 87076; 87077; 87186; 87205; 88304-TC; 93005; 93010; 93922; 93925-TC; 93970-TC; 94760; 99285-25; C9803; G0480; J0131; J1644; Q9967; U0003

== ENCOUNTER 2020-07-07 04:12 | Day surgery (SDC) | payer OTHER ==
[2020-07-04 17:03] VITALS: BMI 24.0
[2020-07-07] MEDS ORDERED: LIDOCAINE HCL 1%, 10 MG/ML (20ML VIAL) ONE (14:39)
[2020-07-07] MEDS ORDERED: HEPARIN NA (PORCINE) 5,000 UNITS/ML 1ML VIAL ONE (14:39)
[2020-07-07] MEDS ORDERED: ONDANSETRON 4 MG/2 ML VIAL IVPUSH PRN (15:31)
[2020-07-07] MEDS ORDERED: oxyCODONE HCL 5 MG TABLET PO PRN (15:31)
[2020-07-07] MEDS ORDERED: MIDAZOLAM HCL 2 MG/2 ML SINGLE DOSE VIAL ONE (15:40)
[2020-07-07] MEDS ORDERED: ceFAZolin SODIUM 1 GM VIAL ONE ×2 (15:45)
[2020-07-07] MEDS ORDERED: ceFAZolin SODIUM 1 GM VIAL IVPB ONE (15:45)
[2020-07-07 18:22] VITALS: BP 111/78; PULSE 82; TEMP 97.8
== END 2020-07-07 18:25 | disposition home or self-care (01) ==
LOC: JASU-SURG 04:12
PROVIDERS: ATTEND Surgery Vascular Surgery
PROC: B41DYZZ Fluoroscopy of Aorta and Bilateral Lower Extremity Arteries using Other Contrast (ICD-10-PCS; principal; 2020-07-07 13:30)
DX: E11.621 Type 2 diabetes mellitus with foot ulcer (principal); L97.529 Non-pressure chronic ulcer of other part of left foot with unspecified severity
CPT/HCPCS: 82962; 94760; J1644

== ENCOUNTER 2021-10-03 12:47 | Inpatient (IN) | payer OTHER ==
[2021-10-03] MEDS ORDERED: CEFTRIAXONE 1,000 MG in DEXTROSE 5%-WATER - 50 ML IVPB ONE (15:56)
[2021-10-03] MEDS ORDERED: AZITHROMYCIN IVPB 500 MG in DEXTROSE 5%-WATER - 250 ML IVPB ONE (15:57)
[2021-10-03] MEDS ORDERED: CEFTRIAXONE 1 GM/50 ML BAG ONE (16:11)
[2021-10-03 16:24] LABS: CHLORIDE 104 mmol/L (98-107); SODIUM 137 mmol/L (136-145)
[2021-10-03 16:26] LABS: CALCIUM 9.2 mg/dL (8.5-10.1)
[2021-10-03 16:27] LABS: ALBUMIN 3.9 g/dl (3.4-5.0); BLOOD UREA NITROGEN 10.8 mg/dL (7-18); CO2 25 mmol/L (21-32); GLUCOSE,RANDOM 339 mg/dL (74-106)
[2021-10-03 16:30] LABS: CREATININE 1.2 mg/dL (0.55-1.3); SGOT/AST 53 U/L (15-37); SGPT/ALT 28 U/L (13-61)
[2021-10-03 16:31] LABS: TOT PROT 7.5 g/dl (6.4-8.2)
[2021-10-03 16:32] LABS: BILIRUBIN,TOTAL 0.8 mg/dL (0.2-1)
[2021-10-03 16:33] LABS: ALK PHOS 154 U/L (45-117)
[2021-10-03 16:37] LABS: ANION GAP 8 MMOL/L (8-16); BASO % 0.6 % (0-2.0); EOS % 2.4 % (0-4.5); HEMATOCRIT 41.2 % (35.4-49); HEMOGLOBIN 13.1 GM/dL (11.7-16.9); LYMPH % 30.6 % (8-40); MCH 27.3 pg (25.7-33.7); MCHC 31.8 g/dl (32.0-35.9); MEAN CELL VOLUME 85.9 fl (80-96); MONO % 7.8 % (3.8-10.2); NEUT % 58.6 % (42.8-82.8); PLATELET COUNT 273 10^3/uL (134-434); RDW 15.1 % (11.9-15.9); WHITE BLOOD COUNT 8.1 K/mm3 (4.0-10.0)
[2021-10-03] MEDS ORDERED: AZITHROMYCIN IVPB 500 MG/250 ML BAG IVPB ONE (17:03)
[2021-10-03 18:54] LABS: PH,URINE 5.5 (5.0-8.0); URINE APPEARANCE CLEAR; URINE BILIRUBIN NEGATIVE (NEGATIVE); URINE COLOR YELLOW; URINE GLUCOSE (UA) 3+ (NEGATIVE); URINE KETONE NEGATIVE (NEGATIVE); URINE LEUK ESTERASE NEGATIVE (NEGATIVE); URINE NITRITE NEGATIVE (NEGATIVE); URINE PROTEIN NEGATIVE (NEGATIVE); URINE UROBILINOGEN 0.2 mg/dL (0.2-1.0)
[2021-10-03] MEDS ORDERED: ACETAMINOPHEN 325 MG TABLET (FP) PO PRN (21:43)
[2021-10-04] MEDS ORDERED: ATORVASTATIN CA 10 MG TABLET (FP) ONE ×2 (00:32→21:39)
[2021-10-04] MEDS ORDERED: GABAPENTIN 400 MG CAPSULE ONE ×4 (00:32→21:39)
[2021-10-04] MEDS: ATORVASTATIN CA 10 MG TABLET (FP) PO SCH ×2 (00:37→22:14)
[2021-10-04] MEDS: GABAPENTIN 400 MG CAPSULE PO SCH ×4 (00:38→22:15)
[2021-10-04] MEDS: INSULIN SLIDING SCALE (NOVOLOG) 1 VIAL SQ SCH ×5 (00:44→22:15)
[2021-10-04 06:45] LABS: BASO % 0.8 % (0-2.0); EOS % 4.7 % (0-4.5); HEMATOCRIT 37.6 % (35.4-49); HEMOGLOBIN 12.3 GM/dL (11.7-16.9); LYMPH % 34.4 % (8-40); MCH 28.2 pg (25.7-33.7); MCHC 32.6 g/dl (32.0-35.9); MEAN CELL VOLUME 86.3 fl (80-96); MEAN PLT VOLUME 8.8 fl (7.5-11.1); MONO % 8.9 % (3.8-10.2); NEUT % 51.2 % (42.8-82.8); PLATELET COUNT 210 10^3/uL (134-434); RBC 4.35 M/mm3 (4.00-5.60); RDW 14.5 % (11.9-15.9); WHITE BLOOD COUNT 6.2 K/mm3 (4.0-10.0)
[2021-10-04] MEDS ORDERED: metFORMIN HCL 500 MG TABLET (FP) PO SCH (07:00)
[2021-10-04] MEDS ORDERED: glipiZIDE 5 MG TABLET (FP) PO SCH (07:00)
[2021-10-04 07:15] LABS: BLOOD UREA NITROGEN 10.4 mg/dL (7-18); CALCIUM 8.7 mg/dL (8.5-10.1); MAGNESIUM 2.1 mg/dL (1.8-2.4)
[2021-10-04 07:16] LABS: ALBUMIN 3.4 g/dl (3.4-5.0)
[2021-10-04 07:17] LABS: TOT PROT 6.3 g/dl (6.4-8.2)
[2021-10-04 07:18] LABS: BILIRUBIN,TOTAL 0.9 mg/dL (0.2-1); CREATININE 0.8 mg/dL (0.55-1.3)
[2021-10-04] MEDS ORDERED: metFORMIN HCL 500 MG TABLET (FP) ONE (08:34)
[2021-10-04] MEDS ORDERED: LISINOPRIL 20 MG TABLET ONE ×2 (08:34→11:46)
[2021-10-04] MEDS ORDERED: FAMOTIDINE 20 MG TABLET ONE ×2 (08:34→08:35)
[2021-10-04] MEDS ORDERED: glipiZIDE 5 MG TABLET (FP) ONE (08:34)
[2021-10-04] MEDS ORDERED: ASPIRIN COATED 81 MG TABLET.EC ONE (08:34)
[2021-10-04] MEDS ORDERED: amLODIPine BESYLATE 10 MG TABLET (FP) ONE (08:34)
[2021-10-04] MEDS ORDERED: CLOPIDOGREL BISULFATE 75 MG TABLET (FP) ONE (08:35)
[2021-10-04] MEDS ORDERED: FUROSEMIDE 20 MG TABLET (FP) ONE (08:35)
[2021-10-04] MEDS ORDERED: CLOPIDOGREL BISULFATE 75 MG TABLET (FP) PO SCH (10:00)
[2021-10-04] MEDS ORDERED: CHOLECALCIFEROL (VIT D3) 400 UNIT (10 MCG) TABLET PO SCH (10:00)
[2021-10-04] MEDS ORDERED: CYANOCOBALAMIN 1,000 MCG TABLET (FP) PO SCH (10:00)
[2021-10-04] MEDS ORDERED: ASPIRIN COATED 81 MG TABLET.EC PO SCH (10:00)
[2021-10-04] MEDS ORDERED: FUROSEMIDE 20 MG TABLET (FP) PO SCH (10:00)
[2021-10-04] MEDS ORDERED: LISINOPRIL 10 MG TABLET PO SCH (10:00)
[2021-10-04] MEDS ORDERED: amLODIPine BESYLATE 5 MG TABLET (FP) PO SCH (10:00)
[2021-10-04] MEDS ORDERED: OMEGA-3 ACID ETHYL ESTERS (FATTY-ACIDS) 1 GM CAPSULE (FP) PO SCH (10:00)
[2021-10-04] MEDS ORDERED: FAMOTIDINE 20 MG TABLET PO SCH (10:00)
[2021-10-04] MEDS ORDERED: LISINOPRIL 20 MG TABLET PO SCH (12:30)
[2021-10-05] MEDS ORDERED: ACETAMINOPHEN 325 MG TABLET (FP) PO PRN (02:45)
[2021-10-05 03:46] VITALS: BMI 25.7
[2021-10-05] MEDS: GABAPENTIN 400 MG CAPSULE PO SCH ×3 (06:34→21:34)
[2021-10-05] MEDS: INSULIN SLIDING SCALE (NOVOLOG) 1 VIAL SQ SCH ×4 (06:35→21:35)
[2021-10-05 08:41] LABS: BLOOD UREA NITROGEN 14.7 mg/dL (7-18); CALCIUM 9.2 mg/dL (8.5-10.1)
[2021-10-05 08:42] LABS: ALBUMIN 3.7 g/dl (3.4-5.0)
[2021-10-05 08:44] LABS: CREATININE 0.8 mg/dL (0.55-1.3)
[2021-10-05 08:46] LABS: BILIRUBIN,TOTAL 0.6 mg/dL (0.2-1); TOT PROT 6.8 g/dl (6.4-8.2)
[2021-10-05] MEDS: LISINOPRIL 20 MG TABLET PO SCH (09:42)
[2021-10-05] MEDS: CHOLECALCIFEROL (VIT D3) 400 UNIT (10 MCG) TABLET PO SCH (09:43)
[2021-10-05] MEDS: OMEGA-3 ACID ETHYL ESTERS (FATTY-ACIDS) 1 GM CAPSULE (FP) PO SCH (09:43)
[2021-10-05] MEDS: amLODIPine BESYLATE 5 MG TABLET (FP) PO SCH (09:43)
[2021-10-05] MEDS: FAMOTIDINE 20 MG TABLET PO SCH (09:43)
[2021-10-05] MEDS: CYANOCOBALAMIN 1,000 MCG TABLET (FP) PO SCH (09:43)
[2021-10-05] MEDS: CLOPIDOGREL BISULFATE 75 MG TABLET (FP) PO SCH (09:43)
[2021-10-05] MEDS: FUROSEMIDE 20 MG TABLET (FP) PO SCH (09:43)
[2021-10-05] MEDS: ASPIRIN COATED 81 MG TABLET.EC PO SCH (09:43)
[2021-10-05] MEDS: DOCUSATE SODIUM 100 MG CAPSULE (FP) PO SCH (21:34)
[2021-10-05] MEDS: ATORVASTATIN CA 10 MG TABLET (FP) PO SCH (21:34)
[2021-10-05] MEDS: SENNOSIDES 8.6MG TABLET (FP) PO SCH (21:35)
[2021-10-05] MEDS: INSULIN (LEVEMIR) 100 UNITS/ML UNITS SQ SCH (21:36)
[2021-10-06] MEDS: INSULIN (LEVEMIR) 100 UNITS/ML UNITS SQ SCH ×2 (06:08→21:51)
[2021-10-06] MEDS: INSULIN SLIDING SCALE (NOVOLOG) 1 VIAL SQ SCH ×4 (06:08→21:51)
[2021-10-06] MEDS: GABAPENTIN 400 MG CAPSULE PO SCH ×3 (06:08→21:52)
[2021-10-06] MEDS: amLODIPine BESYLATE 5 MG TABLET (FP) PO SCH (09:32)
[2021-10-06] MEDS: LISINOPRIL 20 MG TABLET PO SCH (09:32)
[2021-10-06] MEDS: FAMOTIDINE 20 MG TABLET PO SCH (09:33)
[2021-10-06] MEDS: ASPIRIN COATED 81 MG TABLET.EC PO SCH (09:33)
[2021-10-06] MEDS: CYANOCOBALAMIN 1,000 MCG TABLET (FP) PO SCH (09:33)
[2021-10-06] MEDS: FUROSEMIDE 20 MG TABLET (FP) PO SCH (09:33)
[2021-10-06] MEDS: OMEGA-3 ACID ETHYL ESTERS (FATTY-ACIDS) 1 GM CAPSULE (FP) PO SCH (09:33)
[2021-10-06] MEDS: CHOLECALCIFEROL (VIT D3) 400 UNIT (10 MCG) TABLET PO SCH (09:33)
[2021-10-06] MEDS: CLOPIDOGREL BISULFATE 75 MG TABLET (FP) PO SCH (09:33)
[2021-10-06] MEDS ORDERED: ACETAMINOPHEN 325 MG TABLET (FP) PO PRN (09:41)
[2021-10-06] MEDS ORDERED: POLYETHYLENE GLYCOL 3350 119 GM BTL PO PRN (09:42)
[2021-10-06] MEDS ORDERED: INSULIN (NOVOLOG) ASPART 100 UNITS/ML 10ML VIAL ONE ×2 (11:00→21:27)
[2021-10-06] MEDS ORDERED: POLYETHYLENE GLYCOL (HEALTHYLAX) 3350 17 GM PACKET PO PRN (17:14)
[2021-10-06] MEDS: ATORVASTATIN CA 10 MG TABLET (FP) PO SCH (21:52)
[2021-10-06] MEDS: SENNOSIDES 8.6MG TABLET (FP) PO SCH (21:52)
[2021-10-06] MEDS: DOCUSATE SODIUM 100 MG CAPSULE (FP) PO SCH (21:52)
[2021-10-07] MEDS: GABAPENTIN 400 MG CAPSULE PO SCH (06:40)
[2021-10-07] MEDS: INSULIN (LEVEMIR) 100 UNITS/ML UNITS SQ SCH ×2 (06:40→21:54)
[2021-10-07] MEDS: INSULIN SLIDING SCALE (NOVOLOG) 1 VIAL SQ SCH ×4 (06:41→22:01)
[2021-10-07] MEDS ORDERED: INSULIN (NOVOLOG) ASPART 100 UNITS/ML 10ML VIAL ONE ×2 (07:08→11:34)
[2021-10-07] MEDS: LISINOPRIL 20 MG TABLET PO SCH (09:40)
[2021-10-07] MEDS: CLOPIDOGREL BISULFATE 75 MG TABLET (FP) PO SCH (09:40)
[2021-10-07] MEDS: amLODIPine BESYLATE 5 MG TABLET (FP) PO SCH (09:40)
[2021-10-07] MEDS: ASPIRIN COATED 81 MG TABLET.EC PO SCH (09:40)
[2021-10-07] MEDS: FAMOTIDINE 20 MG TABLET PO SCH (09:40)
[2021-10-07] MEDS: FUROSEMIDE 20 MG TABLET (FP) PO SCH (09:40)
[2021-10-07] MEDS: CHOLECALCIFEROL (VIT D3) 400 UNIT (10 MCG) TABLET PO SCH (09:41)
[2021-10-07] MEDS: OMEGA-3 ACID ETHYL ESTERS (FATTY-ACIDS) 1 GM CAPSULE (FP) PO SCH (09:46)
[2021-10-07] MEDS: CYANOCOBALAMIN 1,000 MCG TABLET (FP) PO SCH (09:46)
[2021-10-07 10:09] LABS: BASO % 0.7 % (0-2.0); EOS % 4.8 % (0-4.5); HEMATOCRIT 39.4 % (35.4-49); HEMOGLOBIN 12.9 GM/dL (11.7-16.9); LYMPH % 34.6 % (8-40); MCH 28.1 pg (25.7-33.7); MCHC 32.7 g/dl (32.0-35.9); MEAN CELL VOLUME 85.9 fl (80-96); MEAN PLT VOLUME 9.5 fl (7.5-11.1); NEUT % 51.9 % (42.8-82.8); PLATELET COUNT 233 10^3/uL (134-434); RBC 4.59 M/mm3 (4.00-5.60); RDW 14.5 % (11.9-15.9); WHITE BLOOD COUNT 6.7 K/mm3 (4.0-10.0)
[2021-10-07 10:34] LABS: BLOOD UREA NITROGEN 16.2 mg/dL (7-18); CALCIUM 9.1 mg/dL (8.5-10.1); CREATININE 0.9 mg/dL (0.55-1.3)
[2021-10-07] MEDS ORDERED: GABAPENTIN 400 MG CAPSULE PO SCH (12:35)
[2021-10-07] MEDS: GABAPENTIN 300 MG CAPSULE PO SCH ×2 (13:43→21:51)
[2021-10-07] MEDS: DOCUSATE SODIUM 100 MG CAPSULE (FP) PO SCH (21:51)
[2021-10-07] MEDS: ATORVASTATIN CA 10 MG TABLET (FP) PO SCH (21:51)
[2021-10-07] MEDS: SENNOSIDES 8.6MG TABLET (FP) PO SCH (21:51)
[2021-10-08] MEDS: INSULIN (LEVEMIR) 100 UNITS/ML UNITS SQ SCH ×2 (06:04→21:30)
[2021-10-08] MEDS: GABAPENTIN 300 MG CAPSULE PO SCH ×3 (06:04→21:30)
[2021-10-08] MEDS: INSULIN SLIDING SCALE (NOVOLOG) 1 VIAL SQ SCH ×4 (06:05→21:30)
[2021-10-08] MEDS: CYANOCOBALAMIN 1,000 MCG TABLET (FP) PO SCH (09:16)
[2021-10-08] MEDS: OMEGA-3 ACID ETHYL ESTERS (FATTY-ACIDS) 1 GM CAPSULE (FP) PO SCH (09:16)
[2021-10-08] MEDS: FAMOTIDINE 20 MG TABLET PO SCH (09:16)
[2021-10-08] MEDS: FUROSEMIDE 20 MG TABLET (FP) PO SCH (09:16)
[2021-10-08] MEDS: amLODIPine BESYLATE 5 MG TABLET (FP) PO SCH (09:17)
[2021-10-08] MEDS: CHOLECALCIFEROL (VIT D3) 400 UNIT (10 MCG) TABLET PO SCH (09:17)
[2021-10-08] MEDS: LISINOPRIL 20 MG TABLET PO SCH (09:17)
[2021-10-08] MEDS: CLOPIDOGREL BISULFATE 75 MG TABLET (FP) PO SCH (09:17)
[2021-10-08] MEDS: ASPIRIN COATED 81 MG TABLET.EC PO SCH (09:17)
[2021-10-08] MEDS ORDERED: INSULIN (NOVOLOG) ASPART 100 UNITS/ML 10ML VIAL ONE (21:11)
[2021-10-08] MEDS: SENNOSIDES 8.6MG TABLET (FP) PO SCH (21:30)
[2021-10-08] MEDS: ATORVASTATIN CA 10 MG TABLET (FP) PO SCH (21:30)
[2021-10-08] MEDS: DOCUSATE SODIUM 100 MG CAPSULE (FP) PO SCH (21:32)
[2021-10-09] MEDS: INSULIN SLIDING SCALE (NOVOLOG) 1 VIAL SQ SCH ×4 (06:25→21:41)
[2021-10-09] MEDS: INSULIN (LEVEMIR) 100 UNITS/ML UNITS SQ SCH ×2 (06:25→21:41)
[2021-10-09] MEDS: GABAPENTIN 300 MG CAPSULE PO SCH ×3 (06:26→21:21)
[2021-10-09] MEDS: CHOLECALCIFEROL (VIT D3) 400 UNIT (10 MCG) TABLET PO SCH (10:18)
[2021-10-09] MEDS: LISINOPRIL 20 MG TABLET PO SCH (10:18)
[2021-10-09] MEDS: FAMOTIDINE 20 MG TABLET PO SCH (10:18)
[2021-10-09] MEDS: ASPIRIN COATED 81 MG TABLET.EC PO SCH (10:18)
[2021-10-09] MEDS: CLOPIDOGREL BISULFATE 75 MG TABLET (FP) PO SCH (10:18)
[2021-10-09] MEDS: FUROSEMIDE 20 MG TABLET (FP) PO SCH (10:18)
[2021-10-09] MEDS: amLODIPine BESYLATE 5 MG TABLET (FP) PO SCH (10:18)
[2021-10-09] MEDS: OMEGA-3 ACID ETHYL ESTERS (FATTY-ACIDS) 1 GM CAPSULE (FP) PO SCH (10:19)
[2021-10-09] MEDS: CYANOCOBALAMIN 1,000 MCG TABLET (FP) PO SCH (10:19)
[2021-10-09] MEDS: ATORVASTATIN CA 10 MG TABLET (FP) PO SCH (21:20)
[2021-10-09] MEDS: DOCUSATE SODIUM 100 MG CAPSULE (FP) PO SCH (21:21)
[2021-10-09] MEDS: SENNOSIDES 8.6MG TABLET (FP) PO SCH (21:21)
[2021-10-10] MEDS: GABAPENTIN 300 MG CAPSULE PO SCH ×3 (06:06→21:01)
[2021-10-10] MEDS: INSULIN SLIDING SCALE (NOVOLOG) 1 VIAL SQ SCH ×4 (06:08→21:03)
[2021-10-10] MEDS: INSULIN (LEVEMIR) 100 UNITS/ML UNITS SQ SCH ×2 (06:11→21:02)
[2021-10-10] MEDS: CLOPIDOGREL BISULFATE 75 MG TABLET (FP) PO SCH (09:15)
[2021-10-10] MEDS: ASPIRIN COATED 81 MG TABLET.EC PO SCH (09:15)
[2021-10-10] MEDS: amLODIPine BESYLATE 5 MG TABLET (FP) PO SCH (09:15)
[2021-10-10] MEDS: FAMOTIDINE 20 MG TABLET PO SCH (09:15)
[2021-10-10] MEDS: LISINOPRIL 20 MG TABLET PO SCH (09:15)
[2021-10-10] MEDS: FUROSEMIDE 20 MG TABLET (FP) PO SCH (09:15)
[2021-10-10] MEDS: CHOLECALCIFEROL (VIT D3) 400 UNIT (10 MCG) TABLET PO SCH (09:15)
[2021-10-10] MEDS: CYANOCOBALAMIN 1,000 MCG TABLET (FP) PO SCH (11:01)
[2021-10-10] MEDS: OMEGA-3 ACID ETHYL ESTERS (FATTY-ACIDS) 1 GM CAPSULE (FP) PO SCH (11:01)
[2021-10-10] MEDS ORDERED: INSULIN (NOVOLOG) ASPART 100 UNITS/ML 10ML VIAL ONE ×2 (11:17→20:33)
[2021-10-10] MEDS: DOCUSATE SODIUM 100 MG CAPSULE (FP) PO SCH (21:01)
[2021-10-10] MEDS: ATORVASTATIN CA 10 MG TABLET (FP) PO SCH (21:02)
[2021-10-10] MEDS: SENNOSIDES 8.6MG TABLET (FP) PO SCH (21:02)
[2021-10-11] MEDS: GABAPENTIN 300 MG CAPSULE PO SCH ×3 (05:38→21:03)
[2021-10-11] MEDS: INSULIN SLIDING SCALE (NOVOLOG) 1 VIAL SQ SCH ×4 (06:17→21:03)
[2021-10-11] MEDS: INSULIN (LEVEMIR) 100 UNITS/ML UNITS SQ SCH ×2 (06:18→21:02)
[2021-10-11] MEDS ORDERED: INSULIN (NOVOLOG) ASPART 100 UNITS/ML 10ML VIAL ONE (06:24)
[2021-10-11] MEDS: CHOLECALCIFEROL (VIT D3) 400 UNIT (10 MCG) TABLET PO SCH (09:57)
[2021-10-11] MEDS: ASPIRIN COATED 81 MG TABLET.EC PO SCH (09:57)
[2021-10-11] MEDS: FAMOTIDINE 20 MG TABLET PO SCH (09:57)
[2021-10-11] MEDS: FUROSEMIDE 20 MG TABLET (FP) PO SCH (09:57)
[2021-10-11] MEDS: CLOPIDOGREL BISULFATE 75 MG TABLET (FP) PO SCH (09:57)
[2021-10-11] MEDS: LISINOPRIL 20 MG TABLET PO SCH (09:57)
[2021-10-11] MEDS: amLODIPine BESYLATE 5 MG TABLET (FP) PO SCH (09:57)
[2021-10-11] MEDS: CYANOCOBALAMIN 1,000 MCG TABLET (FP) PO SCH (09:58)
[2021-10-11] MEDS: OMEGA-3 ACID ETHYL ESTERS (FATTY-ACIDS) 1 GM CAPSULE (FP) PO SCH (09:58)
[2021-10-11] MEDS: ATORVASTATIN CA 10 MG TABLET (FP) PO SCH (21:02)
[2021-10-11] MEDS: DOCUSATE SODIUM 100 MG CAPSULE (FP) PO SCH (21:02)
[2021-10-11] MEDS: SENNOSIDES 8.6MG TABLET (FP) PO SCH (21:03)
[2021-10-12] MEDS: GABAPENTIN 300 MG CAPSULE PO SCH ×3 (06:01→22:12)
[2021-10-12] MEDS: INSULIN (LEVEMIR) 100 UNITS/ML UNITS SQ SCH ×2 (06:07→22:13)
[2021-10-12] MEDS: INSULIN SLIDING SCALE (NOVOLOG) 1 VIAL SQ SCH ×4 (06:07→22:22)
[2021-10-12] MEDS: LISINOPRIL 20 MG TABLET PO SCH (10:24)
[2021-10-12] MEDS: CYANOCOBALAMIN 1,000 MCG TABLET (FP) PO SCH (10:24)
[2021-10-12] MEDS: amLODIPine BESYLATE 5 MG TABLET (FP) PO SCH (10:25)
[2021-10-12] MEDS: FAMOTIDINE 20 MG TABLET PO SCH (10:25)
[2021-10-12] MEDS: FUROSEMIDE 20 MG TABLET (FP) PO SCH (10:25)
[2021-10-12] MEDS: CHOLECALCIFEROL (VIT D3) 400 UNIT (10 MCG) TABLET PO SCH (10:25)
[2021-10-12] MEDS: CLOPIDOGREL BISULFATE 75 MG TABLET (FP) PO SCH (10:25)
[2021-10-12] MEDS: ASPIRIN COATED 81 MG TABLET.EC PO SCH (10:25)
[2021-10-12] MEDS: OMEGA-3 ACID ETHYL ESTERS (FATTY-ACIDS) 1 GM CAPSULE (FP) PO SCH (10:27)
[2021-10-12] MEDS ORDERED: INSULIN (NOVOLOG) ASPART 100 UNITS/ML 10ML VIAL ONE (10:51)
[2021-10-12] MEDS: SENNOSIDES 8.6MG TABLET (FP) PO SCH (22:13)
[2021-10-12] MEDS: ATORVASTATIN CA 10 MG TABLET (FP) PO SCH (22:13)
[2021-10-12] MEDS: DOCUSATE SODIUM 100 MG CAPSULE (FP) PO SCH (22:13)
[2021-10-13] MEDS: INSULIN (LEVEMIR) 100 UNITS/ML UNITS SQ SCH (06:48)
[2021-10-13] MEDS: GABAPENTIN 300 MG CAPSULE PO SCH ×2 (06:48→13:55)
[2021-10-13] MEDS: INSULIN SLIDING SCALE (NOVOLOG) 1 VIAL SQ SCH ×2 (06:49→11:49)
[2021-10-13] MEDS: CYANOCOBALAMIN 1,000 MCG TABLET (FP) PO SCH (09:52)
[2021-10-13] MEDS: FAMOTIDINE 20 MG TABLET PO SCH (09:53)
[2021-10-13] MEDS: FUROSEMIDE 20 MG TABLET (FP) PO SCH (09:53)
[2021-10-13] MEDS: LISINOPRIL 20 MG TABLET PO SCH (09:53)
[2021-10-13] MEDS: CLOPIDOGREL BISULFATE 75 MG TABLET (FP) PO SCH (09:53)
[2021-10-13] MEDS: amLODIPine BESYLATE 5 MG TABLET (FP) PO SCH (09:53)
[2021-10-13] MEDS: ASPIRIN COATED 81 MG TABLET.EC PO SCH (09:53)
[2021-10-13] MEDS: CHOLECALCIFEROL (VIT D3) 400 UNIT (10 MCG) TABLET PO SCH (09:53)
[2021-10-13] MEDS: OMEGA-3 ACID ETHYL ESTERS (FATTY-ACIDS) 1 GM CAPSULE (FP) PO SCH (09:53)
[2021-10-13 14:01] VITALS: BP 132/70; PULSE 78; TEMP 99.3
== END 2021-10-13 17:01 | DRG 74 ==
LOC: JER 12:47 → UNDOADMOB 15:52 → INTOOBSV 15:52 → JERBED 15:52 → J6S 10-05 02:35 → OBSVTOIN 10-06 13:48 → J6S 10-07 13:34
PROVIDERS: ADMIT Internal Medicine; ATTEND Internal Medicine
DX: E11.42 Type 2 diabetes mellitus with diabetic polyneuropathy (principal); E11.65 Type 2 diabetes mellitus with hyperglycemia; E11.51 Type 2 diabetes mellitus with diabetic peripheral angiopathy without gangrene; I10 Essential (primary) hypertension; E78.5 Hyperlipidemia, unspecified; R55 Syncope and collapse
CPT/HCPCS: 36415; 71045-TC-FY; 80048; 80053; 80061; 81003; 82010; 82962; 83036; 83735; 84132; 84443; 84484; 85025; 87086; 93005; 93010; 93922; 93925-TC; 97116-GP; 97162-GP; 99285-25; C9803-CS; G0378; U0003; U0005